=== PATIENT | female | born 1960 | race Caucasian/White ===

== ENCOUNTER 2018-05-06 07:57 | Inpatient (IN) | payer MEDICARE, MEDICAID, SELFPAY ==
[2018-05-06] VITALS (76 sets, daily range): BP systolic 151–259; BP diastolic 73–138; PULSE 56–87; RESP 16–30; TEMP 37.2–38.2; O2SAT 89–99
--- NOTE | 2018-05-06 08:07 | DI.COMBO_ITS ---
SYMPTOM/DIAGNOSIS: MENTAL STATUS CHANGES NONCONTRAST HEAD CT: No priors. Age appropriate changes are seen within the brain. No evidence of an acute infarct, hemorrhage, midline shift or mass effect is identified. The ventricles are intact. The basilar cisterns are patent. The visualized paranasal sinuses are clear. The mastoid air cells are well pneumatized. The calvarium is intact. Coronary artery calcifications are seen. IMPRESSION: No acute intracranial process. FRONTAL AND LATERAL CHEST: No priors. The left hemidiaphragm is not ideally visualized. There does appear to be a small left pleural effusion. A left basilar infiltrate is also suspected. This may represent atelectasis or pneumonia. The lungs are otherwise clear. The heart is at the upper limits of normal in size. Pulmonary vasculature is within normal limits. No pneumothorax is seen. Degenerative changes are present in the spine. IMPRESSION: Small left pleural effusion. Question of a left basilar infiltrate which may represent atelectasis or pneumonia.
--- NOTE | 2018-05-06 08:10 | W.ED.GENAD ---
Discharge Plan Discharge Details Chief Complaint: GenMedical Reason For Visit: CALEX Primary Care Provider: Mariana Arias ED Provider: Alexys Valdivia Home Meds and New Rx's Prescriptions: No Action multivitamin Tablet 1 tab PO DAILY RF: 0 carvedilol 25 mg Tablet 25 mg PO BID RF: 0 acetaminophen 325 mg Tablet 650 mg PO .Q4HRS PRNRF: 0 citalopram 40 mg Tablet 40 mg PO DAILY RF: 0 polyethylene glycol 3350 [Miralax] 17 gram Powder In Packet 17 g PO DAILY PRNRF: 0 lisinopril 20 mg Tablet 20 mg PO DAILY RF: 0 ondansetron HCl [Zofran] 4 mg Tablet 4 mg PO .Q6HRS PRNRF: 0 isosorbide mononitrate 30 mg Tablet Extended Release 24 Hr 30 mg PO DAILY RF: 0 torsemide 10 mg Tablet 10 mg PO DAILY RF: 0 potassium chloride [Klor-Con 10] 10 mEq Tablet Extended Release 20 mg PO DAILY RF: 0 risperidone 2 mg Tablet 2 mg PO DAILY RF: 0 ascorbic acid (vitamin C) [Vitamin C] 500 mg Tablet 500 mg PO DAILY RF: 0 amlodipine 10 mg Tablet 10 mg PO DAILY RF: 0 simvastatin 20 mg Tablet 20 mg PO .QHS RF: 0 ferrous sulfate [Iron (ferrous sulfate)] 325 mg (65 mg iron) Tablet 325 mg PO BID RF: 0 docusate sodium [Colace] 100 mg Capsule 100 mg PO BID RF: 0 omeprazole 20 mg Capsule,Delayed Release(Dr/Ec) 20 mg PO DAILY RF: 0 aspirin 81 mg Tablet,Chewable 81 mg PO DAILY RF: 0 vitamin B complex Tablet 1 tab PO DAILY RF: 0 hydralazine 50 mg Tablet 50 mg PO TID RF: 0 lorazepam 1 mg Tablet 1 mg PO PRNRF: 0 albuterol sulfate [Ventolin HFA] 90 mcg/actuation Hfa Aerosol Inhaler 2 puff Inhalation .Q4 HOURS PRNRF: 0 ipratropium bromide 42 mcg (0.06 %) [place],Non-Aerosol 1 spray Intranasal .Q8HRS PRNRF: 0 lithium carbonate 300 mg Tablet 300 mg PO DAILY RF: 0 risperidone 0.5 mg Tablet 0.5 mg PO .Q8HRS PRNRF: 0 budesonide-formoterol [Symbicort] 160-4.5 mcg/actuation Hfa Aerosol Inhaler 1 puff Inhalation DAILY RF: 0 melatonin 5 mg Tablet 5 mg PO .QHS RF: 0 cariprazine 1.5 mg Capsule 1.5 mg PO DAILY RF: 0 carbamazepine (mood stabiliz) 200 mg Capsule, Er Multiphase 12 Hr 200 mg PO BID RF: 0 glucagon (human recombinant) [Glucagon Emergency Kit (human)] 1 mg Kit 1 mg IM .Q15 MINUTES PRNRF: 0 dextrose [Glucose Gel] 40 % Gel 1 dose PO PRNRF: 0 nitroglycerin 2 % Ointment 0.25 inch Transdermal PRNRF: 0 Medical Decision Making Medical Records Medical records reviewed: Yes I reviewed the patient's medical records. This is a 58-year-old female who [facility] with elevated blood pressures and question mental status changes. She does not have a fever, she has slightly elevated blood pressures. Her exam is notable for dry mucous membranes, slightly slurred speech, she appears somewhat sedated. She does not want to take sedative medications. She is on a hypertensive medication regimen that includes carvedilol, lisinopril, amlodipine, torsemide. Diagnosis is broad and includes metabolic, neurologic, infectious etiologies. She is referred for CT scan of the head, chest x-ray, laboratory analysis with urine. The chest x-ray reveals equivocal, small left pleural effusion. There is opacification of the left hemidiaphragm, reflecting atelectasis versus early lower lobe infiltrate. Remainder of patient's diagnostics are notable for hyponatremia with a sodium of 157. She is significantly elevated BNP at 26,000. Troponin is at negative range. Cr slightly higher than that of 1.8 noted at recent DC from [facility]. I obtained and reviewed discharge summary from [facility] for date range April 26 - May 04. She was noted to have chronic comorbidities including hypernatremia (last noted at 146 on May 04), COPD, atherosclerotic coronary vascular disease, chronic conjunctivitis. Labs also noted BNP 15,000. She will require admission for fever, pneumonia and hypernatremia. Will discuss antibiotic choice with admitting team. Discussed with patients Guardian, Tona Wright. Lab Data Lab results reviewed: Yes I reviewed the patient's lab results. ECG Data Attestation: I personally reviewed and interpreted this ECG (s) as follows: Prior ECG tracings: not available for review Interpretation: Normal sinus rhythm, the rate is 77, QRS is normal [place] interval, QRS slightly widened with interventricular conduction delay, question delta wave. Nonspecific ST segment changes with out ST segment elevation. There is slight negative T waves in the precordium HPI - General Adult General Mode of arrival: EMS. Date/Time Provider Initiated Documentation: 05/06/18 07:59. Limitations to Documentation: altered mental status. Information obtained by: patient, EMS and old records reviewed. History of Present Illness 58 year old F presents to the emergency department with the chief complaint of Elevated blood pressure and question mental status changes, described as moderate, Quality is described as other (Unable to describe), Patient started experiencing this day(s) HPI Narrative: This is a 58-year-old female who was recently placed local rehabilitation facility following left tibial plateau fracture. She has history of bipolar disorder, COPD with chronic hypoxia, history of refusing BiPAP, 2 L of oxygen as needed, as well as recent question of non-STEMI for which she has had an outpatient nuclear stress test ordered. Referred for high blood pressures over days time despite amlodipine, carvedilol, lisinopril. She also takes torsemide. She is not particularly contributory to the history; she states to me that she would like a drink.. Related Data Home Medications Medication Instructions Recorded Confirmed acetaminophen 650 mg PO .Q4HRS PRN 05/06/18 05/06/18 albuterol sulfate [Ventolin HFA] 2 puff INHALATION .Q4 HOURS PRN 05/06/18 05/06/18 amlodipine 10 mg PO DAILY 05/06/18 05/06/18 ascorbic acid (vitamin C) [Vitamin 500 mg PO DAILY 05/06/18 05/06/18 C] aspirin 81 mg PO DAILY 05/06/18 05/06/18 budesonide-formoterol [Symbicort] 1 puff INHALATION DAILY 05/06/18 05/06/18 carbamazepine (mood stabiliz) 200 mg PO BID 05/06/18 05/06/18 cariprazine 1.5 mg PO DAILY 05/06/18 05/06/18 carvedilol 25 mg PO BID 05/06/18 05/06/18 citalopram 40 mg PO DAILY 05/06/18 05/06/18 dextrose [Glucose Gel] 1 dose PO PRN 05/06/18 docusate sodium [Colace] 100 mg PO BID 05/06/18 05/06/18 ferrous sulfate [Iron (ferrous 325 mg PO BID 05/06/18 05/06/18 sulfate)] glucagon (human recombinant) 1 mg IM .Q15 MINUTES PRN 05/06/18 05/06/18 [Glucagon Emergency Kit (human)] hydralazine 50 mg PO TID 05/06/18 05/06/18 ipratropium bromide 1 spray INTRANASAL .Q8HRS PRN 05/06/18 05/06/18 isosorbide mononitrate 30 mg PO DAILY 05/06/18 05/06/18 lisinopril 20 mg PO DAILY 05/06/18 05/06/18 lithium carbonate 300 mg PO DAILY 05/06/18 05/06/18 lorazepam 1 mg PO PRN 05/06/18 melatonin 5 mg PO .QHS 05/06/18 05/06/18 multivitamin 1 tab PO DAILY 05/06/18 05/06/18 nitroglycerin 0.25 inch TRANSDERMAL PRN 05/06/18 omeprazole 20 mg PO DAILY 05/06/18 05/06/18 ondansetron HCl [Zofran] 4 mg PO .Q6HRS PRN 05/06/18 05/06/18 polyethylene glycol 3350 [Miralax] 17 g PO DAILY PRN 05/06/18 05/06/18 potassium chloride [Klor-Con 10] 20 mg PO DAILY 05/06/18 05/06/18 risperidone 0.5 mg PO .Q8HRS PRN 05/06/18 05/06/18 risperidone 2 mg PO DAILY 05/06/18 05/06/18 simvastatin 20 mg PO .QHS 05/06/18 05/06/18 torsemide 10 mg PO DAILY 05/06/18 05/06/18 vitamin B complex 1 tab PO DAILY 05/06/18 05/06/18 Allergies Allergy/AdvReac Type Severity Reaction Status Date / Time pollen extracts Allergy Unknown Unverified 05/06/18 09:12 Sulfa (Sulfonamide Allergy Unknown Unverified 05/06/18 09:12 Antibiotics) sulfamethoxazole Allergy Unknown Unverified 05/06/18 09:41 [From Bactrim] trimethoprim [From Bactrim] Allergy Unknown Unverified 05/06/18 09:41 General Stated Complaint: GenMedical ADAM: 2 Review of Systems Review of Systems Unobtainable due to mental status Exam Narrative Exam Narrative: GEN: awake, alert, responds to simple commands, asking to have a drink. Moves all 4 extremities. Mucous membranes appear generally dry. Patient's somewhat unkempt HEAD: Normocephalic, atraumatic ENT: Mucous membranes dry, oropharynx partially edentulous, no acute asymmetry/swelling/exudates.External ear exam unremarkable EYES: PERRL, EOMI, bilateral conjunctival injection with crusting of the eyelids NECK: Full ROM, no SIOBHAN, no menigismus CHEST/RESP: Nontender, clear to auscultation bilateral, no wheeze/rhonchi/rales CARDIOVASCULAR: RRR, 2 out of 6 systolic ejection murmur left upper sternal border, rub hayden. 2+ Rad pulse bilateral ABDOMEN: Soft, nontender, no mass. +Bowel sounds EXT: Full ROM, no edema, no rash Neuro: Grossly normal neurologic exam, conversant, interactive. Her speech is slightly slurred & slow Psych: Speech slightly slurred, otherwise fluent, affect flat Course Vital Signs Temperature 37.4 C 05/06/18 08:00 Pulse 77 05/06/18 08:00 Respiratory Rate 27 H 05/06/18 08:00 Blood Pressure 204/91 H 05/06/18 08:00 Pulse Oximetry 92 L 05/06/18 08:00 Temperature 37.4 C 05/06/18 08:00 Pulse 77 05/06/18 08:00 Respiratory Rate 27 H 05/06/18 08:00 Blood Pressure 204/91 H 05/06/18 08:00 Pulse Oximetry 92 L 05/06/18 08:00
--- NOTE | 2018-05-06 08:17 | ED.GENADUL_ITS ---
Discharge Plan Discharge Details Chief Complaint: GenMedical Reason For Visit: CALEX Primary Care Provider: Mariana Arias ED Provider: Alexys Valdivia Home Meds and New Rx's Prescriptions: No Action multivitamin Tablet 1 tab PO DAILY RF: 0 carvedilol 25 mg Tablet 25 mg PO BID RF: 0 acetaminophen 325 mg Tablet 650 mg PO .Q4HRS PRNRF: 0 citalopram 40 mg Tablet 40 mg PO DAILY RF: 0 polyethylene glycol 3350 [Miralax] 17 gram Powder In Packet 17 g PO DAILY PRNRF: 0 lisinopril 20 mg Tablet 20 mg PO DAILY RF: 0 ondansetron HCl [Zofran] 4 mg Tablet 4 mg PO .Q6HRS PRNRF: 0 isosorbide mononitrate 30 mg Tablet Extended Release 24 Hr 30 mg PO DAILY RF: 0 torsemide 10 mg Tablet 10 mg PO DAILY RF: 0 potassium chloride [Klor-Con 10] 10 mEq Tablet Extended Release 20 mg PO DAILY RF: 0 risperidone 2 mg Tablet 2 mg PO DAILY RF: 0 ascorbic acid (vitamin C) [Vitamin C] 500 mg Tablet 500 mg PO DAILY RF: 0 amlodipine 10 mg Tablet 10 mg PO DAILY RF: 0 simvastatin 20 mg Tablet 20 mg PO .QHS RF: 0 ferrous sulfate [Iron (ferrous sulfate)] 325 mg (65 mg iron) Tablet 325 mg PO BID RF: 0 docusate sodium [Colace] 100 mg Capsule 100 mg PO BID RF: 0 omeprazole 20 mg Capsule,Delayed Release(Dr/Ec) 20 mg PO DAILY RF: 0 aspirin 81 mg Tablet,Chewable 81 mg PO DAILY RF: 0 vitamin B complex Tablet 1 tab PO DAILY RF: 0 hydralazine 50 mg Tablet 50 mg PO TID RF: 0 lorazepam 1 mg Tablet 1 mg PO PRNRF: 0 albuterol sulfate [Ventolin HFA] 90 mcg/actuation Hfa Aerosol Inhaler 2 puff Inhalation .Q4 HOURS PRNRF: 0 ipratropium bromide 42 mcg (0.06 %) [place],Non-Aerosol 1 spray Intranasal .Q8HRS PRNRF: 0 lithium carbonate 300 mg Tablet 300 mg PO DAILY RF: 0 risperidone 0.5 mg Tablet 0.5 mg PO .Q8HRS PRNRF: 0 budesonide-formoterol [Symbicort] 160-4.5 mcg/actuation Hfa Aerosol Inhaler 1 puff Inhalation DAILY RF: 0 melatonin 5 mg Tablet 5 mg PO .QHS RF: 0 cariprazine 1.5 mg Capsule 1.5 mg PO DAILY RF: 0 carbamazepine (mood stabiliz) 200 mg Capsule, Er Multiphase 12 Hr 200 mg PO BID RF: 0 glucagon (human recombinant) [Glucagon Emergency Kit (human)] 1 mg Kit 1 mg IM .Q15 MINUTES PRNRF: 0 dextrose [Glucose Gel] 40 % Gel 1 dose PO PRNRF: 0 nitroglycerin 2 % Ointment 0.25 inch Transdermal PRNRF: 0 Medical Decision Making Medical Records Medical records reviewed: Yes I reviewed the patient's medical records. This is a 58-year-old female who presents from local [facility] with elevated blood pressures and question mental status changes. She does not have a fever, she has slightly elevated blood pressures. Her exam is notable for dry mucous membranes, slightly slurred speech, she appears somewhat sedated. She does not want to take sedative medications. She is on a hypertensive medication regimen that includes carvedilol, lisinopril, amlodipine, torsemide. Diagnosis is broad and includes metabolic, neurologic, infectious etiologies. She is referred for CT scan of the head, chest x-ray, laboratory analysis with urine. The chest x-ray reveals equivocal, small left pleural effusion. There is opacification of the left hemidiaphragm, reflecting atelectasis versus early lower lobe infiltrate. Remainder of patient's diagnostics are notable for hyponatremia with a sodium of 157. She is significantly elevated BNP at 26,000. Troponin is at negative range. Cr slightly higher than that of 1.8 noted at recent DC from [facility]. I obtained and reviewed discharge summary from [facility] for date range April 26 - May 04. She was noted to have chronic comorbidities including hypernatremia (last noted at 146 on May 04), COPD, atherosclerotic coronary vascular disease, chronic conjunctivitis. Labs also noted BNP 15,000. She will require admission for fever, pneumonia and hypernatremia. Will discuss antibiotic choice with admitting team. Discussed with patients Guardian, Tona Wright. Lab Data Lab results reviewed: Yes I reviewed the patient's lab results. ECG Data Attestation: I personally reviewed and interpreted this ECG (s) as follows: Prior ECG tracings: not available for review Interpretation: Normal sinus rhythm, the rate is 77, QRS is normal [place] interval, QRS slightly widened with interventricular conduction delay, question delta wave. Nonspecific ST segment changes with out ST segment elevation. There is slight negative T waves in the precordium HPI - General Adult General Mode of arrival: EMS . Date/Time Provider Initiated Documentation: 05/06/18 07:59 . Limitations to Documentation: altered mental status . Information obtained by: patient, EMS and old records reviewed . History of Present Illness 58 year old F presents to the emergency department with the chief complaint of Elevated blood pressure and question mental status changes, described as moderate, Quality is described as other (Unable to describe), Patient started experiencing this day(s) HPI Narrative: This is a 58-year-old female who was recently placed local rehabilitation facility following left tibial plateau fracture. She has history of bipolar disorder, COPD with chronic hypoxia, history of refusing BiPAP, 2 L of oxygen as needed, as well as recent question of non-STEMI for which she has had an outpatient nuclear stress test ordered. Referred for high blood pressures over days time despite amlodipine, carvedilol , lisinopril. She also takes torsemide. She is not particularly contributory to the history; she states to me that she would like a drink.. Related Data Home Medications Medication Instructions Recorded Confirmed acetaminophen 650 mg PO .Q4HRS PRN 05/06/18 05/06/18 albuterol sulfate [Ventolin HFA] 2 puff INHALATION .Q4 HOURS PRN 05/06/18 amlodipine 10 mg PO DAILY 05/06/18 05/06/18 ascorbic acid (vitamin C) [Vitamin 500 mg PO DAILY 05/06/18 05/06/18 C] aspirin 81 mg PO DAILY 05/06/18 05/06/18 budesonide-formoterol [Symbicort] 1 puff INHALATION DAILY 05/06/18 05/06/18 carbamazepine (mood stabiliz) 200 mg PO BID 05/06/18 05/06/18 cariprazine 1.5 mg PO DAILY 05/06/18 05/06/18 carvedilol 25 mg PO BID 05/06/18 05/06/18 citalopram 40 mg PO DAILY 05/06/18 05/06/18 dextrose [Glucose Gel] 1 dose PO PRN 05/06/18 docusate sodium [Colace] 100 mg PO BID 05/06/18 05/06/18 ferrous sulfate [Iron (ferrous 325 mg PO BID 05/06/18 05/06/18 sulfate)] glucagon (human recombinant) 1 mg IM .Q15 MINUTES PRN 05/06/18 05/06/18 [Glucagon Emergency Kit (human)] hydralazine 50 mg PO TID 05/06/18 05/06/18 ipratropium bromide 1 spray INTRANASAL .Q8HRS PRN 05/06/18 05/06/18 isosorbide mononitrate 30 mg PO DAILY 05/06/18 05/06/18 lisinopril 20 mg PO DAILY 05/06/18 05/06/18 lithium carbonate 300 mg PO DAILY 05/06/18 05/06/18 lorazepam 1 mg PO PRN 05/06/18 melatonin 5 mg PO .QHS 05/06/18 05/06/18 multivitamin 1 tab PO DAILY 05/06/18 05/06/18 nitroglycerin 0.25 inch TRANSDERMAL PRN 05/06/18 omeprazole 20 mg PO DAILY 05/06/18 05/06/18 ondansetron HCl [Zofran] 4 mg PO .Q6HRS PRN 05/06/18 05/06/18 polyethylene glycol 3350 [Miralax] 17 g PO DAILY PRN 05/06/18 05/06/18 potassium chloride [Klor-Con 10] 20 mg PO DAILY 05/06/18 05/06/18 risperidone 0.5 mg PO .Q8HRS PRN 05/06/18 05/06/18 risperidone 2 mg PO DAILY 05/06/18 05/06/18 simvastatin 20 mg PO .QHS 05/06/18 05/06/18 torsemide 10 mg PO DAILY 05/06/18 05/06/18 vitamin B complex 1 tab PO DAILY 05/06/18 05/06/18 Allergies Allergy/AdvReac Type Severity Reaction Status Date / Time pollen extracts Allergy Unknown Unverified 05/06/18 09:12 Sulfa (Sulfonamide Allergy Unknown Unverified 05/06/18 09:12 Antibiotics) sulfamethoxazole Allergy Unknown Unverified 05/06/18 09:41 [From Bactrim] trimethoprim [From Bactrim] Allergy Unknown Unverified 05/06/18 09:41 General Stated Complaint: GenMedical ADAM: 2 Review of Systems Review of Systems Unobtainable due to mental status Exam Narrative Exam Narrative: GEN: awake, alert, responds to simple commands, asking to have a drink. Moves all 4 extremities. Mucous membranes appear generally dry. Patient's somewhat unkempt HEAD: Normocephalic, atraumatic ENT: Mucous membranes dry, oropharynx partially edentulous, no acute asymmetry/ swelling/exudates.External ear exam unremarkable EYES: PERRL, EOMI, bilateral conjunctival injection with crusting of the eyelids NECK: Full ROM, no SIOBHAN, no menigismus CHEST/RESP: Nontender, clear to auscultation bilateral, no wheeze/rhonchi/rales CARDIOVASCULAR: RRR, 2 out of 6 systolic ejection murmur left upper sternal border, rub hayden. 2+ Rad pulse bilateral ABDOMEN: Soft, nontender, no mass. +Bowel sounds EXT: Full ROM, no edema, no rash Neuro: Grossly normal neurologic exam, conversant, interactive. Her speech is slightly slurred & slow Psych: Speech slightly slurred, otherwise fluent, affect flat Course Vital Signs Temperature 37.4 C 05/06/18 08:00 Pulse 77 05/06/18 08:00 Respiratory Rate 27 H 05/06/18 08:00 Blood Pressure 204/91 H 05/06/18 08:00 Pulse Oximetry 92 L 05/06/18 08:00 Temperature 37.4 C 05/06/18 08:00 Pulse 77 05/06/18 08:00 Respiratory Rate 27 H 05/06/18 08:00 Blood Pressure 204/91 H 05/06/18 08:00 Pulse Oximetry 92 L 05/06/18 08:00
--- NOTE | 2018-05-06 08:33 | DI.VRAD_ITS ---
EXAM: CT Head Without Intravenous Contrast EXAM DATE/TIME: 05/06/2018 8:16 AM. CLINICAL HISTORY: 58 years old, female; Signs and symptoms; Other: Mental status changes TECHNIQUE: Axial computed tomography images of the head/brain without intravenous contrast. Coronal and sagittal reformatted images were created and reviewed. COMPARISON: No relevant prior studies available. FINDINGS: Brain: Age- related chronic microvascular changes are noted within the white matter. No hemorrhage. Ventricles: The ventricles and sulci are prominent compatible with age-appropriate atrophy. Bones/joints: Unremarkable. No acute fracture. Soft tissues: Unremarkable. Sinuses: Unremarkable as visualized. No acute sinusitis. Mastoid air cells: Unremarkable as visualized. No mastoid effusion. IMPRESSION: Age-appropriate atrophy and chronic microvascular change. Dictated and Authenticated by: Ariel Coburn MD. Ordering:ISMAEL HECTOR MD
--- NOTE | 2018-05-06 08:34 | DI.VRAD_ITS ---
EXAM: XR Chest, 2 Views EXAM DATE/TIME: 05/06/2018 8:23 AM. CLINICAL HISTORY: 58 years old, female; Signs and symptoms; Other: Mental status changes; Additional info: Limited ability to follow breathing instructions TECHNIQUE: Frontal and lateral views of the chest. COMPARISON: No relevant prior studies available. FINDINGS: Lungs: Opacification of the left hemidiaphragm may reflect atelectasis or left lower lobe pneumonia. Pleural space: Equivocal small left pleural effusion. No pneumothorax. Heart: Unremarkable. No cardiomegaly. Mediastinum: Unremarkable. Bones/joints: Unremarkable. IMPRESSION: 1. Opacification of the left hemidiaphragm may reflect atelectasis or left lower lobe pneumonia. 2. Equivocal small left pleural effusion. Dictated and Authenticated by: Ariel Coburn MD. Ordering:ISMAEL HECTOR MD
[2018-05-06] MEDS: Normal Saline 1,000 ML 125 ML IV (09:20)
[2018-05-06 09:21] LABS: Bilirubin Negative (Negative); Blood Trace-intact (Negative); Clarity Clear; Glucose Negative (Negative); Ketones Negative (Negative); Leukocyte Esterase Negative (Negative); Nitrite Negative (Negative); Specific Gravity 1.015 (1.005-1.025); Urobilinogen 0.2 EU/dL (Up TO 0.2); pH 7.5 (5-8)
[2018-05-06 09:29] LABS: *AMPHETAMINES SCREEN URINE Negative (Negative); *BARBITURATES SCREEN URINE Negative (Negative); *BENZODIAZEPINES SCREEN URINE Negative (Negative); Cannabinoids THC Negative (Negative); Cocaine Screen,Urine Negative (Negative); METHADONE URINE SCREEN Negative (Negative); OPIATES URINE SCREEN Negative (Negative); Tricyclic Antidepressants Negative (Negative)
[2018-05-06 09:30] LABS: Abs Immature Grans 0.02 k/cumm (0.0-0.09); Absolute Basophil Count 0.01 k/cumm (0.0-0.2); Absolute Eosinophil Count 0.07 k/cumm (0.0-0.7); Absolute Lymphocyte Count 0.75 k/cumm (1.2-3.4); Absolute Monocyte Count 0.35 k/cumm (0.11-0.7); Basophils % 0.2; Eosinophils % 1.3; HCT 31.5 % (36.0-46.0); HGB 9.4 g/dL (12.0-15.5); Immature Grans % 0.4; Lymphocytes % 13.4; Mean Corp. HGB Concentration 29.8 g/dL (32.0-36.0); Mean Corpuscular Hemoglobin 32.1 pg (27.0-33.0); Mean Corpuscular Volume 107.5 fL (80-95); Mean Platelet Volume 10.2 fL (8.0-11.0); Monocytes % 6.3; Neutrophils % 78.4; Platelet Count 118 x1000/uL (130-400); RBC 2.93 m/cumm (4.00-5.20); RBC Distribution Width 13.6 % (11.7-14.6)
[2018-05-06 09:32] LABS: Bacteria Rare HPF (Negative); C & S Indicated? No; Casts Negative LPF (Negative); Crystals Negative HPF (Negative); Epithelial Cells Rare HPF (Negative); Mucus Negative (Negative); Other Cells Rare Renal (Negative); RBC 0-2 (0-2); WBC 0-2 HPF (0-5)
[2018-05-06 09:37] LABS: Diff Comment RBC Morph Reviewed; Hypochromasia 1+; Macrocytosis 2+
[2018-05-06 09:52] LABS: NT-proBNP 26721 pg/mL
[2018-05-06 09:55] LABS: ALT 15 U/L (12-78); AST 12 U/L (15-37); Albumin 3.3 g/dL (3.4-5.0); Alkaline Phosphatase 123 U/L (46-116); Anion Gap 5.9 mmol/L (3-11); BUN 21 mg/dL (7-18); Bilirubin, Direct 0.12 mg/dL (0.00-0.20); Bilirubin, Total 0.4 mg/dL (0.2-1.0); CO2 36.1 mmol/L (21.0-32.0); CREATININE 2.01 mg/dL (0.55-1.02); Calcium 8.9 mg/dL (8.5-10.1); Chloride 115 mmol/L (98-107); Estimated GFR 25.63 (mL/min/1.73m2); Glucose 146 mg/dL (70-100); Magnesium 2.3 mg/dL (1.8-2.4); Potassium 3.2 mmol/L (3.5-5.1); TSH 1.07 uIU/mL (0.358-3.74); Total Protein 5.8 g/dL (6.4-8.2); Troponin I 0.06 ng/mL (0.00-0.06)
[2018-05-06 10:09] LABS: ETHANOL BLOOD < 3.0 mg/dL (<3); Sodium 157 mmol/L (136-145)
[2018-05-06] MEDS: PIPERACILLIN/TAZO 3.375 GM in Normal Saline 50 ML IVPB (11:23)
[2018-05-06] MEDS: amLODIPine 10 MG TAB PO (13:05)
[2018-05-06] MEDS: hydrALAZINE 25 MG TAB 50 MG PO ×2 (13:05→19:41)
[2018-05-06] MEDS: Carvedilol 25 MG TAB PO ×2 (13:05→19:41)
[2018-05-06] MEDS: POTASSIUM CHLORIDE/0.45% NACL 1,000 ML 100 MEQ IV (13:06)
--- NOTE | 2018-05-06 13:39 | W.PM.HP.N ---
Date of service: 05/06/18 Time of Service: 13:40 Assessment and Plan (1) Healthcare-associated pneumonia: Current visit: Yes Status: Acute Recent hospitalization at [facility] 04/26 through 05/04/2018. Now with fever and hypertension. Mild hypoxia. X-ray shows minimal left lower lobe infiltrate. Empiric coverage with Zosyn 3.375 g IV every 6 hours with plans to broaden coverage if she continues to deteriorate. Would include vancomycin and Levaquin added to her regimen if needed. (2) Tibial plateau fracture, left: Current visit: Yes Status: Acute Continue knee immobilizer. Nonweightbearing left leg. Physical therapy consult for mobility issues. (3) Chronic renal insufficiency: Current visit: Yes Status: Acute Creatinine elevated at 2.01. Thus far urine output appears to be adequate. Fox catheter to monitor urine output. (4) Hypokalemia: Current visit: Yes Status: Acute We will add potassium replacement to her IV. Recheck levels in the a.m. (5) Hypernatremia: Current visit: Yes Status: Acute Sodium elevated at 157. Will give additional free water and half normal saline at 100 cc an hour. Recheck level in the a.m. (6) Mental retardation: Current visit: Yes Status: Chronic Severe cognitive delay. Patient cannot participate in her care at all. Above plans have been run by the guardian who has been apprised and agrees. (7) Bipolar 1 disorder, depressed, severe: Current visit: Yes Status: Chronic Continue present meds. No behavioral issues at this point. Guardian warrants that she has gotten catatonic when stressed in the past. (8) Diabetes type 2, controlled: Current visit: Yes Status: Chronic Follow fingerstick blood sugars and correction aspart moderate. (9) Discharge planning issues: Current visit: Yes Status: Acute Patient is a full code. Admitted to the ICU in acute care status. She will likely be her several days getting her electrolytes in order, treating the pneumonia, managing her blood pressure, dealing with her overall disabilities and rehab from her tibial plateau fracture. Total time arranging her inpatient admission to the ICU 88 minutes. History of Present Illness Chief Complaint: Left lower lobe pneumonia, healthcare associated/hypernatremia/hypertension Narrative: This is a 58-year-old woman severely debilitated by developmental delay. She has [id number] caregivers. She was recently hospitalized at [facility] 04/26 through 05/04/2018 for a left tibial plateau fracture. She was transferred to [facility] and rehab for continued rehabilitation. She was transferred to [facility] overnight because of fever and severe hypertension. She also appeared to have mental status change though her baseline functioning is not very good. In the emergency room she was found to have a sodium of 157 potassium 3.2 chest x-ray showed a left lower lobe infiltrate, blood pressure 217/108. She is admitted to the intensive care unit for management of multiorgan dysfunction, electrolyte dysfunction, healthcare associated pneumonia. Her guardian was notified of her severe illness. Review of Systems Review of Systems Unobtainable due to mental condition [facility] Medical History Tibial plateau fracture, left (Acute ~03/2018) Chronic renal insufficiency (Acute) Hypokalemia (Acute) Hypernatremia (Acute) Hemorrhoids (Resolved) Ischemic heart disease (Chronic) HTN (hypertension) (Chronic) MIGUEL ANGEL (obstructive sleep apnea) (Chronic) Mental retardation (Chronic) Anemia (Chronic) Obesity (Chronic) HLD (hyperlipidemia) (Chronic) Bipolar 1 disorder, depressed, severe (Chronic) Diabetes type 2, controlled (Chronic) Healthcare-associated pneumonia (Acute) Meds Home Medications Medication Instructions Recorded Confirmed Type acetaminophen 650 mg PO .Q4HRS PRN 05/06/18 05/06/18 History albuterol sulfate [Ventolin HFA] 2 puff INHALATION .Q4 HOURS PRN 05/06/18 05/06/18 History amlodipine 10 mg PO DAILY 05/06/18 05/06/18 History ascorbic acid (vitamin C) [Vitamin 500 mg PO DAILY 05/06/18 05/06/18 History C] aspirin 81 mg PO DAILY 05/06/18 05/06/18 History budesonide-formoterol [Symbicort] 1 puff INHALATION DAILY 05/06/18 05/06/18 History carbamazepine (mood stabiliz) 200 mg PO BID 05/06/18 05/06/18 History cariprazine 1.5 mg PO DAILY 05/06/18 05/06/18 History carvedilol 25 mg PO BID 05/06/18 05/06/18 History citalopram 40 mg PO DAILY 05/06/18 05/06/18 History dextrose [Glucose Gel] 1 dose PO PRN 05/06/18 History docusate sodium [Colace] 100 mg PO BID 05/06/18 05/06/18 History ferrous sulfate [Iron (ferrous 325 mg PO BID 05/06/18 05/06/18 History sulfate)] glucagon (human recombinant) 1 mg IM .Q15 MINUTES PRN 05/06/18 05/06/18 History [Glucagon Emergency Kit (human)] hydralazine 50 mg PO TID 05/06/18 05/06/18 History ipratropium bromide 1 spray INTRANASAL .Q8HRS PRN 05/06/18 05/06/18 History isosorbide mononitrate 30 mg PO DAILY 05/06/18 05/06/18 History lisinopril 20 mg PO DAILY 05/06/18 05/06/18 History lithium carbonate 300 mg PO DAILY 05/06/18 05/06/18 History lorazepam 1 mg PO PRN 05/06/18 History melatonin 5 mg PO .QHS 05/06/18 05/06/18 History multivitamin 1 tab PO DAILY 05/06/18 05/06/18 History nitroglycerin 0.25 inch TRANSDERMAL PRN 05/06/18 History omeprazole 20 mg PO DAILY 05/06/18 05/06/18 History ondansetron HCl [Zofran] 4 mg PO .Q6HRS PRN 05/06/18 05/06/18 History polyethylene glycol 3350 [Miralax] 17 g PO DAILY PRN 05/06/18 05/06/18 History potassium chloride [Klor-Con 10] 20 mg PO DAILY 05/06/18 05/06/18 History risperidone 0.5 mg PO .Q8HRS PRN 05/06/18 05/06/18 History risperidone 2 mg PO DAILY 05/06/18 05/06/18 History simvastatin 20 mg PO .QHS 05/06/18 05/06/18 History torsemide 10 mg PO DAILY 05/06/18 05/06/18 History vitamin B complex 1 tab PO DAILY 05/06/18 05/06/18 History Allergies Allergy/AdvReac Type Severity Reaction Status Date / Time pollen extracts Allergy Unknown Unverified 05/06/18 09:12 Sulfa (Sulfonamide Allergy Unknown Unverified 05/06/18 09:12 Antibiotics) sulfamethoxazole Allergy Unknown Unverified 05/06/18 09:41 [From Bactrim] trimethoprim [From Bactrim] Allergy Unknown Unverified 05/06/18 09:41 Exam Narrative Exam Narrative: Patient lying in bed moaning stating I want to go upstairs. Unable to answer any questions with any clarity. Const General: disheveled and ill appearing Nutritional Appearance: overweight Orientation: awake, not oriented to person, not oriented to place and not oriented to time Limitations: behavioral limitations Chest Chest: normal inspection of the chest Resp Effort & Inspection: normal respiratory effort Auscultation: clear to auscultation bilaterally Cardio Rate: regular rate Rhythm: regular rhythm Heart Sounds: no murmurs GI Inspection: normal to inspection Palpation: soft and nontender Back/Spine/Pelvis Back: no CVA tenderness Other: Stage II decubital ulcer approximately 1 x 2 cm shallow ulceration with about 3-4 cm of surrounding erythema. Skin General skin exam: no rashes or lesions noted Neuro General: not oriented x3 and no focal motor deficits Cognition: abnormal cognition Extrem Left lower extremity: abnormal to inspection (knee immobilizer in place) Other: Distal perfusion good on both right and left lower extremity. Results Labs : 05/06/18 09:21 05/06/18 09:21 Laboratory Results - last 24 hr 05/06/18 05/06/18 05/06/18 09:05 09:05 09:21 WBC RBC Hgb Hct MCV MCH MCHC RDW Plt Count MPV Immature Gran % Neutrophils % Lymphocytes % Monocytes % Eosinophils % Basophils % Absolute Neutrophils Absolute Lymphocytes Absolute Monocytes Absolute Eosinophils Absolute Basophils Differential Comment RBC Morphology Hypochromasia Macrocytosis Sodium 157 H* Potassium 3.2 L Chloride 115 H Carbon Dioxide 36.1 H Anion Gap 5.9 BUN 21 H Creatinine 2.01 H Estimated GFR/1.73 m2 25.63 Glucose 146 H Calcium 8.9 Magnesium 2.3 Total Bilirubin 0.4 Conjugated Bilirubin 0.12 AST 12 L ALT 15 Alkaline Phosphatase 123 H Troponin I 0.06 NT-Pro-B Natriuret Pep Total Protein 5.8 L Albumin 3.3 L TSH 1.07 Urine Color Yellow Urine Clarity Clear Urine pH 7.5 Ur Specific Greene 1.015 Urine Protein 100 H Urine Ketones Negative Urine Blood Trace-intact H Urine Nitrite Negative Urine Bilirubin Negative Urine Urobilinogen 0.2 Ur Leukocyte Esterase Negative Urine RBC 0-2 Urine WBC 0-2 Ur Epithelial Cells Rare Urine Crystals Negative Urine Bacteria Rare Urine Casts Negative Urine Mucus Negative Urine Other Rare renal Ur Culture Indicated? No Urine Glucose Negative Urine Opiates Screen Negative Urine Methadone Screen Negative Ur Barbiturates Screen Negative Ur Tricyclics Screen Negative Ur Amphetamines Screen Negative U Benzodiazepines Scrn Negative Urine Cocaine Screen Negative Ur THC Screen Negative Ethyl Alcohol < 3.0 05/06/18 05/06/18 09:21 09:21 WBC 5.60 RBC 2.93 L Hgb 9.4 L Hct 31.5 L MCV 107.5 H MCH 32.1 MCHC 29.8 L RDW 13.6 Plt Count 118 L MPV 10.2 Immature Gran % 0.4 Neutrophils % 78.4 Lymphocytes % 13.4 Monocytes % 6.3 Eosinophils % 1.3 Basophils % 0.2 Absolute Neutrophils 4.40 Absolute Lymphocytes 0.75 L Absolute Monocytes 0.35 Absolute Eosinophils 0.07 Absolute Basophils 0.01 Differential Comment Rbc morph reviewed RBC Morphology See below Hypochromasia 1+ Macrocytosis 2+ Sodium Potassium Chloride Carbon Dioxide Anion Gap BUN Creatinine Estimated GFR/1.73 m2 Glucose Calcium Magnesium Total Bilirubin Conjugated Bilirubin AST ALT Alkaline Phosphatase Troponin I NT-Pro-B Natriuret Pep 43827 H Total Protein Albumin TSH Urine Color Urine Clarity Urine pH Ur Specific Greene Urine Protein Urine Ketones Urine Blood Urine Nitrite Urine Bilirubin Urine Urobilinogen Ur Leukocyte Esterase Urine RBC Urine WBC Ur Epithelial Cells Urine Crystals Urine Bacteria Urine Casts Urine Mucus Urine Other Ur Culture Indicated? Urine Glucose Urine Opiates Screen Urine Methadone Screen Ur Barbiturates Screen Ur Tricyclics Screen Ur Amphetamines Screen U Benzodiazepines Scrn Urine Cocaine Screen Ur THC Screen Ethyl Alcohol
[2018-05-06] MEDS: Acetaminophen 325 MG TAB PO (13:55)
[2018-05-06] MEDS: Insulin Aspart 300 UNITS/3 ML PEN SC ×2 (13:57→17:01)
[2018-05-06] MEDS: Enoxaparin 30 MG/0.3 ML SYR SC (13:57)
[2018-05-06] MEDS: Ferrous Sulfate 325 MG TAB PO (19:40)
[2018-05-06] MEDS: Docusate Sodium 100 MG CAP PO (19:41)
[2018-05-06] MEDS: Simvastatin 20 MG TAB PO (21:07)
[2018-05-06] MEDS: Melatonin 3 MG TAB 6 MG PO (21:07)
[2018-05-07] VITALS (45 sets, daily range): BP systolic 131–217; BP diastolic 59–110; PULSE 53–76; RESP 16–30; TEMP 37.2–37.7; O2SAT 85–99
[2018-05-07] MEDS: POTASSIUM CHLORIDE/0.45% NACL 1,000 ML 100 MEQ IV ×3 (00:02→23:00)
[2018-05-07] MEDS: Omeprazole 20 MG CAPCR PO (06:38)
[2018-05-07 07:01] LABS: Abs Immature Grans 0.01 k/cumm (0.0-0.09); Absolute Basophil Count 0.02 k/cumm (0.0-0.2); Absolute Eosinophil Count 0.12 k/cumm (0.0-0.7); Absolute Lymphocyte Count 1.04 k/cumm (1.2-3.4); Absolute Monocyte Count 0.44 k/cumm (0.11-0.7); Absolute Neutrophil Count 5.17 k/cumm (1.2-6.7); Basophils % 0.3; Eosinophils % 1.8; HCT 31.3 % (36.0-46.0); HGB 9.1 g/dL (12.0-15.5); Immature Grans % 0.1; Lymphocytes % 15.3; Mean Corp. HGB Concentration 29.1 g/dL (32.0-36.0); Mean Corpuscular Hemoglobin 31.9 pg (27.0-33.0); Mean Corpuscular Volume 109.8 fL (80-95); Mean Platelet Volume 11.1 fL (8.0-11.0); Monocytes % 6.5; Platelet Count 138 x1000/uL (130-400); RBC 2.85 m/cumm (4.00-5.20); RBC Distribution Width 13.9 % (11.7-14.6)
[2018-05-07 07:17] LABS: ALT 16 U/L (12-78); AST 11 U/L (15-37); Albumin 3.2 g/dL (3.4-5.0); Alkaline Phosphatase 107 U/L (46-116); Anion Gap 4.5 mmol/L (3-11); BUN 21 mg/dL (7-18); Bilirubin, Total 0.2 mg/dL (0.2-1.0); CO2 36.5 mmol/L (21.0-32.0); CREATININE 2.19 mg/dL (0.55-1.02); Calcium 8.6 mg/dL (8.5-10.1); Chloride 114 mmol/L (98-107); Estimated GFR 23.21 (mL/min/1.73m2); Glucose 108 mg/dL (70-100); Potassium 4.2 mmol/L (3.5-5.1); Sodium 155 mmol/L (136-145); Total Protein 5.4 g/dL (6.4-8.2)
[2018-05-07] MEDS: Torsemide 20 MG TAB 10 MG PO (08:02)
[2018-05-07] MEDS: Acetaminophen 325 MG TAB PO ×2 (08:02→13:57)
[2018-05-07] MEDS: Citalopram 20 MG TAB 40 MG PO (08:03)
[2018-05-07] MEDS: risperiDONE 1 MG TAB 2 MG PO (08:03)
[2018-05-07] MEDS: amLODIPine 10 MG TAB PO (08:04)
[2018-05-07] MEDS: Ferrous Sulfate 325 MG TAB PO ×2 (08:04→19:45)
[2018-05-07] MEDS: hydrALAZINE 25 MG TAB 50 MG PO ×3 (08:04→19:45)
[2018-05-07] MEDS: Carvedilol 25 MG TAB PO ×2 (08:04→19:45)
[2018-05-07] MEDS: Docusate Sodium 100 MG CAP PO ×2 (08:04→19:45)
[2018-05-07] MEDS: Potassium Chloride 10 MEQ TABCR 20 MEQ PO (08:04)
[2018-05-07] MEDS: Lithium Carbonate 300 MG CAP PO (08:04)
[2018-05-07] MEDS: Lisinopril 20 MG TAB PO (08:05)
[2018-05-07] MEDS: Isosorbide Mononitrate 30 MG TABCR PO (08:05)
[2018-05-07] MEDS: Aspirin 81 MG CHEW PO (08:05)
--- NOTE | 2018-05-07 08:45 | PDOC.CMIN ---
- If Service Date Differs Date of service: 05/07/18 Time of Service: 08:45 Care Management Initial Assess REASON FOR HOSPITALIZATION:: L lower lobe pneumonia, hypernatremia PAST MEDICAL HISTORY/PAST SURGICAL HISTORY:: HTN, DM 2, MIGUEL ANGEL, chronic renal disease, ischemic heart disease, anemia, obesity, bipolar 1 disorder, severe cognitive delay, she is unable to partcipate in her care. PREVIOUS FUNCTIONAL STATUS/SOCIAL/FAMILY SUPPORTS:: [facility] related to recent L tibia fracture. She was at [facility] prior to [facility]. She receives DS through [facility] in [place] Megha Servin is her top case assembler and her contact number is [phone]. Tona currently receives 10 hours a week. Her DS person is Deepthi and is present today at the bedside. Tona lives in an AF home with Randiellie Corcoran in [place]. Plan is for her to return there once she has completed short term rehab for PT and OT. CURRENT FUNCTIONAL STATUS:: Tona is sitting up in bed she is asking for a drink over and over. Her guardian Tona is at the bedside and her DS worker Deepthi is also present.Tona has excessive thirst at baseline she recently had surgery in January to remove the left kidney for chronic stones. She has a histroy of depression per Tona with ECT treatments in the past. Tona will often get upset she ask for a drink and she does not get it. She will state I am going to throw myself on the floor to her caregivers. She has lived in several [facility] homes in the past her most recent one has been for just over a year. NEHA did complete HIPAA form with Guardian and scanned to access. Guardian should be contacted with updates, concerns or questions her number is [phone] if she does not call back in 10 minutes and the need is emergant contact office of public guardian at . ADVANCE DIRECTIVES:: Full code Guardianship forms on the chart Has patient been provided with information about the portal?: No Did the patient sign up for the portal?: No CODE STATUS:: Full Code INSURANCE COVERAGE / FINANCIAL ISSUES:: Medicaid, and Medicare CURRENT HOME/COMMUNITY SERVICES/EQUIPMENT:: [facility], prior she lives at home with a [facility] care provider. Tona has a bipap and is on oxygen PRN. 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 She has a public guardian and receives DS services 10 hours a week. PRIMARY CARE PHYSICIAN:: Mariana Garibay POTENTIAL DISCHARGE NEEDS:: Return to [facility] for ongoing short rehab stay prior to returning home with [facility] care provider. Discharge informaton and follow up plan of care will be sent to [facility] and guardian updated. PATIENT/FAMILY EDUCATION NEEDS:: Discharge informaton and follow up plan of care will be sent to [facility] and guardian updated. Education to include discharge plan, limitaitons and follow up plan of care. ANTICIPATED BARRIERS TO DISCHARGE:: None identified. TRANSPORTATION:: [facility] when medically ready for discharge. PLAN:: Toan is admitted for treatment of pneumonia with recent hosptial stay at [facility]. She will return to [facility] when medically ready per provider. CM has updated the guardian and will fax updates to group director at [facility]. Anticipate she will be discharged over the weekend to return to facility. CM to continue to provide support to patient and care team ongoing discharge planning.
[2018-05-07] MEDS: Budesonide/Formoterol 160/4.5 6 GM 60 PUFF INH IH (08:59)
--- NOTE | 2018-05-07 09:15 | INITIAL_ITS ---
- If Service Date Differs Date of service: 05/07/18 Time of Service: 08:45 Care Management Initial Assess REASON FOR HOSPITALIZATION:: L lower lobe pneumonia, hypernatremia PAST MEDICAL HISTORY/PAST SURGICAL HISTORY:: HTN, DM 2, MIGUEL ANGEL, chronic renal disease, ischemic heart disease, anemia, obesity, bipolar 1 disorder, severe cognitive delay, she is unable to partcipate in her care. PREVIOUS FUNCTIONAL STATUS/SOCIAL/FAMILY SUPPORTS:: Tona is [facility] at [facility] for [facility]hab stay related to recent L tibia fracture. She was at [facility] prior to [facility] to [facility]. She receives DS through [facility] in [place] Megha Servin is her skilled nursing case manager and her contact number is [phone]. Tona currently receives 10 hours a week. Her DS person is Deepthi and is present today at the bedside. Tona lives in an AF home with Randiellie Corcoran in [place]. Plan is for her to return there once she has completed short term rehab for PT and OT. CURRENT FUNCTIONAL STATUS:: Tona is sitting up in bed she is asking for a drink over and over. Her guardian Tona is at the bedside and her DS worker Deepthi is also present.Tona has excessive thirst at baseline she recently had surgery in January to remove the left kidney for chronic stones. She has a histroy of depression per Tona with ECT treatments in the past. Tona will often get upset she ask for a drink and she does not get it. She will state I am going to throw myself on the floor to her caregivers. She has lived in several [facility] homes in the past her most recent one has been for just over a year. NEHA did complete HIPAA form with Guardian and scanned to access. Guardian should be contacted with updates, concerns or questions her number is [phone] if she does not call back in 10 minutes and the need is emergant contact office of public guardian at . ADVANCE DIRECTIVES:: Full code Guardianship forms on the chart Has patient been provided with information about the portal?: No Did the patient sign up for the portal?: No CODE STATUS:: Full Code INSURANCE COVERAGE / FINANCIAL ISSUES:: Medicaid, and Medicare CURRENT HOME/COMMUNITY SERVICES/EQUIPMENT:: [facility], prior she lives at home with a [facility] care provider. Tona has a bipap and is on oxygen PRN. 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 She has a public guardian and receives DS services 10 hours a week. PRIMARY CARE PHYSICIAN:: Mariana Garibay POTENTIAL DISCHARGE NEEDS:: Return to [facility] for ongoing short rehab stay prior to returning home with [facility] care provider. Discharge informaton and follow up plan of care will be sent to [facility] and guardian updated. PATIENT/FAMILY EDUCATION NEEDS:: Discharge informaton and follow up plan of care will be sent to [facility] and guardian updated. Education to include discharge plan, limitaitons and follow up plan of care. ANTICIPATED BARRIERS TO DISCHARGE:: None identified. TRANSPORTATION:: [facility] when medically ready for discharge. PLAN:: Tona is admitted for treatment of pneumonia with recent hosptial stay at [facility]. She will return to [facility] when medically ready per provider. CM has updated the guardian and will fax updates to integrated logistics programs director at [facility]. Anticipate she will be discharged over the weekend to return to facility. CM to continue to provide support to patient and care team ongoing discharge planning.
--- NOTE | 2018-05-07 10:19 | PT.INIE ---
Date of service: 05/07/18 Time of Service: 09:50 PT Notes Inpatient Physical Therapy Evaluation Date: 05/07/18 Referring Doctor: Taran San PT Orders: PT CONSULT: left tibial plateau x, NWB, for mobility issues Precautions: Fall Precautions, NWB L LE Patient Profile/Admitting Diagnosis: Pt is a 58yr old female admitted with pneumonia and hypernatremia, altered mental status PMHX: obesity, delay, Bipolar 1 Disorder, diabetes mellitus II, chronic renal insufficiency, ischemic heart disease, hypertension, obstructive sleep apnea, anemia, hyperlipidemina Social History/Home Situation: Lives in a home with 24 hr caregivers, ramp to enter no stairs. Baseline mobility independent with FWW, assist with ADLS. Caregiver present in room to provide home information. Equipment Owned/DME: FWW, raised toilet seat, commode, shower chair Subjective: Pt lying in bed, states name is Annette, does not engage in conversation other than to repeatedly ask for water. She is able to follow simple commands when directed such as moving legs and feet. Caregiver in room talking with patient and encouraging participation in therapy session. Caregiver states patient will do what she wants to do and is sometimes cooperative and other times will refuse mobility. Objective: General Observation: telemetry, R UE IV, BP/02 monitors, knee immobilizer L LE Mental Status: A& O to name Pain: no c/o pain Bed Mobility/Transfers: Supine-sit: HOB 35 degrees, modAx1 to get trunk to sitting and assist hips to edge of bed with use of bedpad. Pt able to sit unsupported at edge of bed for 5min. Pt repeatedly asking for water and asking to get back to bed. Sit-stand: Pt unable to stand, unable to maintain NWB L LE Sit-supine: HOB flat, MinAx1 for upper body and trunk to supine position positioning in bed required maxAx2, pt unable to assist Gait: unable. Due to developmental delay and deconditioning, pt unable to maintain NWB L LE for standing or transfer activities. Pt will require a Karly lift tranfer bed<>chair until she can begin weight bearing on L LE in 6-8weeks when fracture is healed. Balance: Static Sitting: normal Dynamic Sitting: normal Static Standing: unable Dynamic Standing: unable Special Tests: Mobility Limitations Standardized Measure [employer] AM-PAC 6 clicks Basic Mobility Inpatient Short Form: Raw Score: 8 Standardized Score: 28.58 CMS Score: 86.62% CMS Modifier: CM Informed Consent/Education: Patient instructed in purpose of PT consult and plan of care. Assessment: Pt is a 58yr old female admitted with pneumonia and hypernatremia, altered mental status in setting of obesity, delay, Bipolar 1 Disorder, diabetes mellitus II, chronic renal insufficiency. Patient presents with the following impairment level findings: decreased ability to follow direction due to developmental delay, decreased ability to understand and follow NWB precautions L LE due to developmental delay, requires assist of 2 persons for bed mobility, assist of 1 person min-modA for transfers to edge of bed and back to bed. Pt is dependent for transfers to chair due to inability to maintain NWB precautions, pt is at risk for falls and further damage to fracture. She will require Karly Lift transfers bed <> chair until she can begin weight bearing on L LE. Recommend return to rehab facility when medically cleared for 6-8 weeks to allow fracture to heal, then begin standing transfers and gait training at that time when weight bearing precautions lifted. Impairments are contributing to the following functional limitations: AMPAC score CMS Score: 86.62% Patient is assessed as a High 00139 complexity based on the following: History: see pmhx Examination: see above Presentation: evolving Decision Making: AMPAC score CMS Score: 86.62% Goals: not applicable Plan of Care/Treatment Plan: PT eval only DISCHARGE RECOMMENDATIONS: karly lift transfers bed<> chair until patient can return to [facility]. Begin standing transfers/gait training once patient can be weight bearing on L LE in 6-8weeks TREATMENT CODE/TIME: 25min IE 9:50 G Codes in the area mobility of walking and moving around: current status [id number] CM; projected status GP [id number]. Discharge status (if discharging) GP [id number] cm AMPAC score CMS Score: 86.62% Kisha Urbina PT.
--- NOTE | 2018-05-07 10:25 | IN_ITS ---
Date of service: 05/07/18 Time of Service: 09:50 PT Notes Inpatient Physical Therapy Evaluation Date: 05/07/18 Referring Doctor: Taran San PT Orders: PT CONSULT: left tibial plateau x, NWB, for mobility issues Precautions: Fall Precautions, NWB L LE Patient Profile/Admitting Diagnosis: Pt is a 58yr old female admitted with pneumonia and hypernatremia, altered mental status PMHX: obesity, delay, Bipolar 1 Disorder, diabetes mellitus II, chronic renal insufficiency, ischemic heart disease, hypertension, obstructive sleep apnea, anemia, hyperlipidemina Social History/Home Situation: Lives in a home with 24 hr caregivers, ramp to enter no stairs. Baseline mobility independent with FWW, assist with ADLS. Caregiver present in room to provide home information. Equipment Owned/DME: FWW, raised toilet seat, commode, shower chair Subjective: Pt lying in bed, states name is Annette, does not engage in conversation other than to repeatedly ask for water. She is able to follow simple commands when directed such as moving legs and feet. Caregiver in room talking with patient and encouraging participation in therapy session. Caregiver states patient will do what she wants to do and is sometimes cooperative and other times will refuse mobility. Objective: General Observation: telemetry, R UE IV, BP/02 monitors, knee immobilizer L LE Mental Status: A& O to name Pain: no c/o pain Bed Mobility/Transfers: Supine-sit: HOB 35 degrees, modAx1 to get trunk to sitting and assist hips to edge of bed with use of bedpad. Pt able to sit unsupported at edge of bed for 5min. Pt repeatedly asking for water and asking to get back to bed. Sit-stand: Pt unable to stand, unable to maintain NWB L LE Sit-supine: HOB flat, MinAx1 for upper body and trunk to supine position positioning in bed required maxAx2, pt unable to assist Gait: unable. Due to developmental delay and deconditioning, pt unable to maintain NWB L LE for standing or transfer activities. Pt will require a Karly lift tranfer bed<>chair until she can begin weight bearing on L LE in 6-8weeks when fracture is healed. Balance: Static Sitting: normal Dynamic Sitting: normal Static Standing: unable Dynamic Standing: unable Special Tests: Mobility Limitations Standardized Measure [employer] AM-PAC 6 clicks Basic Mobility Inpatient Short Form: Raw Score: 8 Standardized Score: 28.58 CMS Score: 86.62% CMS Modifier: CM Informed Consent/Education: Patient instructed in purpose of PT consult and plan of care. Assessment: Pt is a 58yr old female admitted with pneumonia and hypernatremia , altered mental status in setting of obesity, delay, Bipolar 1 Disorder, diabetes mellitus II, chronic renal insufficiency. Patient presents with the following impairment level findings: decreased ability to follow direction due to developmental delay, decreased ability to understand and follow NWB precautions L LE due to developmental delay, requires assist of 2 persons for bed mobility, assist of 1 person min-modA for transfers to edge of bed and back to bed. Pt is dependent for transfers to chair due to inability to maintain NWB precautions, pt is at risk for falls and further damage to fracture. She will require Karly Lift transfers bed <> chair until she can begin weight bearing on L LE. Recommend return to rehab facility when medically cleared for 6-8 weeks to allow fracture to heal, then begin standing transfers and gait training at that time when weight bearing precautions lifted. Impairments are contributing to the following functional limitations: AMPAC score CMS Score: 86.62% Patient is assessed as a High 99994 complexity based on the following: History: see pmhx Examination: see above Presentation: evolving Decision Making: AMPAC score CMS Score: 86.62% Goals: not applicable Plan of Care/Treatment Plan: PT eval only DISCHARGE RECOMMENDATIONS: karly lift transfers bed<> chair until patient can return to [facility]. Begin standing transfers/gait training once patient can be weight bearing on L LE in 6-8weeks TREATMENT CODE/TIME: 25min IE 9:50 G Codes in the area mobility of walking and moving around: current status [id number] CM; projected status GP [id number]. Discharge status (if discharging) GP [id number] cm AMPAC score CMS Score: 86.62% Kisha Urbina PT.
[2018-05-07 11:27] LABS: Lithium 0.35 mmol/L (0.60-1.20)
--- NOTE | 2018-05-07 11:45 | PHARADMIT ---
Addendum entered by Anni Johnson 05/13/18 10:45: Pharmacy Note Subjective nursing reports pt mood is decreased Objective hypernatremic, bp ok, FS 125, crcl down a bit Assessment D5W started to treat hypernatremia, new med started DDAVP SC, MD may change to PO or intranasal formulation once labs show if it is working. spirolonlactone, lisinopril on hold Plan Na, med changes Original Note: Addendum entered by Lashanda Hodges 05/11/18 13:20: Pharmacy Note Subjective speech consult this morning Objective BP-153/70 HR-55 other VS okay weight-120.4 kg(up) SCr-2.16(down) Assessment zosyn changed to augmentin (dosing okay Crcl ~34.7 mL/min using adjusted body weight) one time dexamethasone 4 mg dose ordered for this evening spironolactone restarted today, potassium discontinued pt. no longer on nicardipine drip, MD has not discontinued order yet though md stopped lithium due to possible diabetes insipidus Plan discharge back to SNF tomorrow if continues to do well Original Note: Addendum entered by Anni Johnson 05/10/18 11:14: Pharmacy Note Subjective HAP, returning to [facility] when ready Objective Na 150, K 3.3, bp 163/60 Assessment pip/taxo continues, lithium continues on hold Plan watch BP, other VS, labs and for med changes Original Note: Addendum entered by Lashanda Hodges 05/08/18 12:49: Pharmacy Note Subjective Objective BP-178/91 RR-28 other VS okay Na-149 K+3.8 Cl-111 SCr-2.07(down) h/h-8.7/29.3(down) plt-121 Assessment -carvedilol increased from 25 to 50 mg BID, hydralazine increased from 50 to 100 mg TID, and lisinopril increased from 20 to 40 mg daily -lithium put on hold -zosyn continues, mentioned deescalating abx to PO soon Plan watch BP, other VS, labs and for med changes Original Note: Admission Pharmacy Clinical Review Left lower lobe pneumonia, hypernatremia Code Status Full Code Current Weight 115.2 kg Renally Cleared and Narrow Therapeutic Index Meds Crcl ~33.2 mL/min using adjusted body weight; current meds okay pt. is on carbamazepine and lithium- lithium level 0.35 mmol/L QTc Value / Action Taken BP Control, Fever BP 163/80 afebrile Electrolytes reviewed Na 155 (down) Cl 114 DVT Prophylaxis enoxaparin- 2 orders, one currently on hold due to renal function Opiate Usage / Scheduled Bowel Regimen Ordered no/prn Plt/SCr for Heparin / Enoxaparin plt 138 SCr 2.19 INR for Warfarin n/a H/H stable, WBC/Bands h/h 9.1/31.3 wbc 680 Antibiotic appropriateness zosyn Cultures and Sensitivities blood culture and MRSA pending Surgical ABX d/c within 24 hr n/a DM control / Insulin Dosing BG 108 sliding scale aspart Heart Failure (Check EF%) (ELOISE's, B-Block, Diuretics) amlodipine, lisinopril, torsemide IV to PO Switch n/a Home Meds Reviewed -multiple QTc prolonging meds: citalopram, ondansetron, risperidone, albuterol, formotorol -anticholinergic meds (risperidone/ipratropium) may increase the ulcerogenic effect of potassium -carvedilol may diminish the bronchodilatory effects of formotorol and albuterol -carbamazepine may induce the metabolism of amlodipine, isosorbide mononitrate, ondansetron, risperidone, simvastatin -omeprazole may increase the serum concentration of citalopram (limit citalopram dose to 20 mg/day) -lisinopril may increase the serum concentration of lithium -lithium may enhance the serotonergic effect of citalopram increasing the risk of toxicity/serotonin syndrome -amlodipine can increase the serum concentration of simvastatin (limit simvastatin dose to 20 mg/day) Home Meds Not Ordered ascorbic acid, ipratropium (nasal), lorazepam, multivitamin, nitroglycerin, vitamin B complex Comments
--- NOTE | 2018-05-07 13:48 | DM INPTCON_ITS ---
DESCRIPTION/ASSESSMENT: Appreciate diabetes consult for Tona Queen who is hospitalized with pneumonia. BMI 49 No A1c available During this hospitalization blood sugars 119-166 with moderate insulin correction only. Unclear how much carbohydrate she is eating. H&P indicates she is cared for by caregivers with a mental disability. Therefore she is not visited today. INTERVENTION: BLood sugars are at target today without medication. No intervention suggested at this time. PLAN: will follow blood sugars.
[2018-05-07] MEDS: Enoxaparin 30 MG/0.3 ML SYR SC (13:56)
--- NOTE | 2018-05-07 15:43 | W.PM.PROGNOT ---
Date of service: 05/07/18 Time of Service: 15:43 Assessment and Plan (1) Healthcare-associated pneumonia: Current visit: Yes Status: Acute She is on the Zosyn. She has defervesced and white count is normal. Respiratory status appears to be stable satting well on 3 L and can probably be titrated down on her O2. Her lung exam sounds improved. The guardian suspects there may have been a choking episode. We have not witnessed any here. As a precaution will change her to honey thickened liquids. (2) Status post nephrectomy: Current visit: Yes Status: Acute The guardian informs us that she had a nephrectomy on the left on 02/02/2018 at [facility], Dr. Gandhi. She is really not been right since that time with increased weakness, frailty, mental status change. There have been adjustments to her lithium dose, worsening renal function, constant thirst. They are in the process of getting a nephrology follow-up to address some of these issues. The nephrectomy was for recurrent kidney stones and infections. (3) Tibial plateau fracture, left: Current visit: Yes Status: Acute Continues in a knee immobilizer. Nonweightbearing status. Pain appears well-controlled, (difficult to assess because of her constant crying out for various demands). Continue physical therapy for mobility issues. (4) Chronic renal insufficiency: Current visit: Yes Status: Acute Creatinine has bumped slightly to 2.19. She is taking adequate p.o. Rhododendron level is low at 0.35. We are allowing liberal fluids and have some IV fluids running. Trend her labs over time. (5) Hypokalemia: Current visit: Yes Status: Acute Potassium has been adequately replaced. (6) Hypernatremia: Current visit: Yes Status: Acute Sodium has come down slightly to 155 continue liberal po fluids and half-normal saline IV. Recheck labs in the a.m. (7) Bipolar 1 disorder, depressed, severe: Current visit: Yes Status: Chronic Moderate behavioral disturbance. She does not get angry. She has a very flat affect and very little insight. Continue present medications, no adjustments made. (8) Diabetes type 2, controlled: Current visit: Yes Status: Chronic Some question whether she is actually diabetic, blood sugars have been easily controlled on just correction aspart. (9) Discharge planning issues: Current visit: Yes Status: Acute She continues is a full code in acute care status, continues as ICU patient but will likely transition to [facility] by tomorrow if she continues stable. Her rehab is complicated by her developmental delay, nonweight bearing status, recent nephrectomy, obesity. Subjective Interval history since last seen: Patient remains largely incoherent. She repetitively cries out for water, pain, change in venue, etc. She is awake most of the time. She does not seem to be aware of her surroundings. Exam Narrative Exam Narrative: She is awake and alert. She does not respond differently to any caregivers or people she is familiar with that I can tell. Her breathing is not at all labored. There is no cough. She is taking liquids without much difficulty, I do not see any evidence of aspiration or difficulty swallowing. Const General: disheveled, frail appearing and ill appearing Nutritional Appearance: overweight Orientation: alert and confused Limitations: behavioral limitations HENMT Head: normal to inspection Chest Chest: normal inspection of the chest Resp Effort & Inspection: normal respiratory effort Auscultation: clear to auscultation bilaterally Cardio Rate: regular rate Rhythm: regular rhythm Heart Sounds: no murmurs GI Inspection: normal to inspection Palpation: soft and nontender Skin General skin exam: no rashes or lesions noted Neuro General: awake and not oriented x3 Objective Objective Clinical Data: Abnormal lab results 05/07/18 05/07/18 05/07/18 Range/Units 06:20 06:20 06:20 RBC 2.85 L (4.00-5.20) m/cumm Hgb 9.1 L (12.0-15.5) g/dL Hct 31.3 L (36.0-46.0) % MCV 109.8 H (80-95) fL MCHC 29.1 L (32.0-36.0) g/dL MPV 11.1 H (8.0-11.0) fL Absolute Lymphocytes 1.04 L (1.2-3.4) k/cumm Sodium 155 H (136-145) mmol/L Chloride 114 H (98-107) mmol/L Carbon Dioxide 36.5 H (21.0-32.0) mmol/L BUN 21 H (7-18) mg/dL Creatinine 2.19 H (0.55-1.02) mg/dL Glucose 108 H (70-100) mg/dL AST 11 L (15-37) U/L Total Protein 5.4 L (6.4-8.2) g/dL Albumin 3.2 L (3.4-5.0) g/dL Rhododendron 0.35 L (0.60-1.20) mmol/L Vital Signs Temp 37.7 C H 05/07/18 12:21 Pulse 70 05/07/18 13:01 Resp 19 05/07/18 13:01 BP 178/88 H 05/07/18 13:01 Pulse Ox 95 05/07/18 13:01 Intake & Output 05/06/18 05/07/18 05/07/18 23:59 11:59 23:59 Intake Total 3230 / 3230 2176 / 2176 973 / 973 Output Total 750 / 750 900 / 900 1250 / 1250 Balance 2480 / 2480 1276 / 1276 -277 / -277 Weight 114.9 kg 115.2 kg Intake: IV 2049 / 2049 1100 / 1100 50 / 50 Oral 1180 / 1180 1076 / 1076 923 / 923 Output: Urine 750 / 750 900 / 900 1250 / 1250 Other: Urine Color Pale Pale Pale Yellow Urine Appearance Clear Clear Clear Urine Odor Normal Comment Indwelling Braswell catheter. Indwelling Braswell catheter. braswell in place Stool Size Smear Stool Characteristics Soft Brown Voiding Methods Incontinent Laboratory Results WBC 6.80 k/cumm (4.4-10.8) 05/07/18 06:20 RBC 2.85 m/cumm (4.00-5.20) L 05/07/18 06:20 Hgb 9.1 g/dL (12.0-15.5) L 05/07/18 06:20 Hct 31.3 % (36.0-46.0) L 05/07/18 06:20 MCV 109.8 fL (80-95) H 05/07/18 06:20 MCH 31.9 pg (27.0-33.0) 05/07/18 06:20 MCHC 29.1 g/dL (32.0-36.0) L 05/07/18 06:20 RDW 13.9 % (11.7-14.6) 05/07/18 06:20 Plt Count 138 x1000/uL (130-400) 05/07/18 06:20 MPV 11.1 fL (8.0-11.0) H 05/07/18 06:20 Immature Gran % 0.1 05/07/18 06:20 Neutrophils % 76.0 05/07/18 06:20 Lymphocytes % 15.3 05/07/18 06:20 Monocytes % 6.5 05/07/18 06:20 Eosinophils % 1.8 05/07/18 06:20 Basophils % 0.3 05/07/18 06:20 Absolute Neutrophils 5.17 k/cumm (1.2-6.7) 05/07/18 06:20 Absolute Lymphocytes 1.04 k/cumm (1.2-3.4) L 05/07/18 06:20 Absolute Monocytes 0.44 k/cumm (0.11-0.7) 05/07/18 06:20 Absolute Eosinophils 0.12 k/cumm (0.0-0.7) 05/07/18 06:20 Absolute Basophils 0.02 k/cumm (0.0-0.2) 05/07/18 06:20 Differential Comment Rbc morph reviewed 05/06/18 09:21 RBC Morphology See below 05/06/18 09:21 Hypochromasia 1+ 05/06/18 09:21 Macrocytosis 2+ 05/06/18 09:21 Sodium 155 mmol/L (136-145) H 05/07/18 06:20 Potassium 4.2 mmol/L (3.5-5.1) D 05/07/18 06:20 Chloride 114 mmol/L (98-107) H 05/07/18 06:20 Carbon Dioxide 36.5 mmol/L (21.0-32.0) H 05/07/18 06:20 Anion Gap 4.5 mmol/L (3-11) 05/07/18 06:20 BUN 21 mg/dL (7-18) H 05/07/18 06:20 Creatinine 2.19 mg/dL (0.55-1.02) H 05/07/18 06:20 Estimated GFR/1.73 m2 23.21 (mL/min/1.73m2) 05/07/18 06:20 Glucose 108 mg/dL (70-100) H 05/07/18 06:20 Calcium 8.6 mg/dL (8.5-10.1) 05/07/18 06:20 Magnesium 2.3 mg/dL (1.8-2.4) 05/06/18 09:21 Total Bilirubin 0.2 mg/dL (0.2-1.0) 05/07/18 06:20 Conjugated Bilirubin 0.12 mg/dL (0.00-0.20) 05/06/18 09:21 AST 11 U/L (15-37) L 05/07/18 06:20 ALT 16 U/L (12-78) 05/07/18 06:20 Alkaline Phosphatase 107 U/L (46-116) 05/07/18 06:20 Troponin I 0.06 ng/mL (0.00-0.06) 05/06/18 09:21 NT-Pro-B Natriuret Pep 67486 pg/mL (-299) H 05/06/18 09:21 Total Protein 5.4 g/dL (6.4-8.2) L 05/07/18 06:20 Albumin 3.2 g/dL (3.4-5.0) L 05/07/18 06:20 TSH 1.07 uIU/mL (0.358-3.74) 05/06/18 09:21 Urine Color Yellow (Yellow) 05/06/18 09:05 Urine Clarity Clear 05/06/18 09:05 Urine pH 7.5 (5-8) 05/06/18 09:05 Ur Specific [place] 1.015 (1.005-1.025) 05/06/18 09:05 Urine Protein 100 mg/dL (Negative) H 05/06/18 09:05 Urine Ketones Negative mg/dL (Negative) 05/06/18 09:05 Urine Blood Trace-intact (Negative) H 05/06/18 09:05 Urine Nitrite Negative (Negative) 05/06/18 09:05 Urine Bilirubin Negative (Negative) 05/06/18 09:05 Urine Urobilinogen 0.2 EU/dL (Up TO 0.2) 05/06/18 09:05 Ur Leukocyte Esterase Negative (Negative) 05/06/18 09:05 Urine RBC 0-2 (0-2) 05/06/18 09:05 Urine WBC 0-2 HPF (0-5) 05/06/18 09:05 Ur Epithelial Cells Rare HPF (Negative) 05/06/18 09:05 Urine Crystals Negative HPF (Negative) 05/06/18 09:05 Urine Bacteria Rare HPF (Negative) 05/06/18 09:05 Urine Casts Negative LPF (Negative) 05/06/18 09:05 Urine Mucus Negative (Negative) 05/06/18 09:05 Urine Other Rare renal (Negative) 05/06/18 09:05 Ur Culture Indicated? No 05/06/18 09:05 Urine Glucose Negative mg/dL (Negative) 05/06/18 09:05 Urine Opiates Screen Negative (Negative) 05/06/18 09:05 Urine Methadone Screen Negative (Negative) 05/06/18 09:05 Ur Barbiturates Screen Negative (Negative) 05/06/18 09:05 Ur Tricyclics Screen Negative (Negative) 05/06/18 09:05 Ur Amphetamines Screen Negative (Negative) 05/06/18 09:05 U Benzodiazepines Scrn Negative (Negative) 05/06/18 09:05 Rhododendron 0.35 mmol/L (0.60-1.20) L 05/07/18 06:20 Urine Cocaine Screen Negative (Negative) 05/06/18 09:05 Ur THC Screen Negative (Negative) 05/06/18 09:05 Ethyl Alcohol < 3.0 mg/dL (<3) 05/06/18 09:21
[2018-05-07] MEDS: Simvastatin 20 MG TAB PO (21:11)
[2018-05-07] MEDS: Melatonin 3 MG TAB 6 MG PO (21:11)
[2018-05-08] VITALS (60 sets, daily range): BP systolic 152–229; BP diastolic 60–117; PULSE 52–78; RESP 11–29; TEMP 37–37.5; O2SAT 80–99
[2018-05-08 06:20] LABS: Abs Immature Grans 0.02 k/cumm (0.0-0.09); Absolute Basophil Count 0.02 k/cumm (0.0-0.2); Absolute Eosinophil Count 0.22 k/cumm (0.0-0.7); Absolute Lymphocyte Count 0.94 k/cumm (1.2-3.4); Absolute Monocyte Count 0.48 k/cumm (0.11-0.7); Absolute Neutrophil Count 5.75 k/cumm (1.2-6.7); Basophils % 0.3; HCT 29.3 % (36.0-46.0); HGB 8.7 g/dL (12.0-15.5); Immature Grans % 0.3; Lymphocytes % 12.7; Mean Corp. HGB Concentration 29.7 g/dL (32.0-36.0); Mean Corpuscular Hemoglobin 31.8 pg (27.0-33.0); Mean Corpuscular Volume 106.9 fL (80-95); Mean Platelet Volume 11.4 fL (8.0-11.0); Monocytes % 6.5; Neutrophils % 77.2; Platelet Count 121 x1000/uL (130-400); RBC 2.74 m/cumm (4.00-5.20); RBC Distribution Width 13.5 % (11.7-14.6); White Blood Cell Count 7.43 k/cumm (4.4-10.8)
[2018-05-08 06:44] LABS: Anion Gap 5.3 mmol/L (3-11); BUN 22 mg/dL (7-18); CO2 32.7 mmol/L (21.0-32.0); CREATININE 2.07 mg/dL (0.55-1.02); Calcium 8.5 mg/dL (8.5-10.1); Chloride 111 mmol/L (98-107); Estimated GFR 24.77 (mL/min/1.73m2); Glucose 102 mg/dL (70-100); Potassium 3.8 mmol/L (3.5-5.1); Sodium 149 mmol/L (136-145)
[2018-05-08] MEDS: Omeprazole 20 MG CAPCR PO (07:29)
[2018-05-08] MEDS: Docusate Sodium 100 MG CAP PO (08:21)
[2018-05-08] MEDS: Lisinopril 20 MG TAB PO (08:21)
[2018-05-08] MEDS: risperiDONE 1 MG TAB 2 MG PO (08:22)
[2018-05-08] MEDS: Potassium Chloride 10 MEQ TABCR 20 MEQ PO (08:22)
[2018-05-08] MEDS: Citalopram 20 MG TAB 40 MG PO (08:22)
[2018-05-08] MEDS: Ferrous Sulfate 325 MG TAB PO ×2 (08:22→19:52)
[2018-05-08] MEDS: Torsemide 20 MG TAB 10 MG PO (08:22)
[2018-05-08] MEDS: amLODIPine 10 MG TAB PO (08:22)
[2018-05-08] MEDS: hydrALAZINE 25 MG TAB 50 MG PO (08:22)
[2018-05-08] MEDS: Aspirin 81 MG CHEW PO (08:23)
[2018-05-08] MEDS: Isosorbide Mononitrate 30 MG TABCR PO (08:23)
[2018-05-08] MEDS: Carvedilol 25 MG TAB PO (08:23)
[2018-05-08] MEDS: Budesonide/Formoterol 160/4.5 6 GM 60 PUFF INH IH (09:01)
[2018-05-08] MEDS: Ibuprofen 600 MG TAB PO (09:21)
--- NOTE | 2018-05-08 09:26 | W.PM.PROGNOT ---
Date of service: 05/08/18 Time of Service: 09:26 Assessment and Plan (1) Healthcare-associated pneumonia: Current visit: Yes Status: Acute patient is on Zosyn and remains afebrile w/ normal WBC count. According to Dr. San's notes, the caregiver has been concerned that the patient may have been having some choking and aspiration. I will ask for S.T. consult. patient remains on honey thickened liquids. I will continue the Zosyn through today but consider de-escalation of her Zosyn to oral antibiotics. (2) Hypernatremia: Current visit: Yes Status: Acute improving with hypotonic saline, her cognition is improving and I suspect that she is getting back to her baseline. I will continue iv fluids for another day particularly since she is having diarrhea, However I have reduced the rate of her IV fluids and changed her to half-normal saline and discontinue the potassium since I will be replacing her torsemide with spironolactone (3) HTN (hypertension): Current visit: Yes Status: Chronic her HTN is worse despite multiple antihypertensive meds. I will adjust her hydralzine and carvedilol doses accordingly. I will replace her torsemide with spironolactone and I have written for as needed labetalol for extreme blood pressure elevations (4) Chronic renal insufficiency: Current visit: Yes Status: Acute her creatinine appears to be stable. However given her CKD and use of lisinopril, I am wondering if workup for secondary causes for her HTN have been pursued such as [place]'s or pheochromocytoma or hyperaldosteronism (5) Hypokalemia: Current visit: Yes Status: Resolved her hypokalemia has resolved w/ potassium supplemenation but she is still at risk for recurrent hypokalemia d/t her diarrhea However since I am Putting her on spironolactone I will discontinue the additional potassium supplementation particularly since she is on lisinopril (6) Diabetes type 2, controlled: Current visit: Yes Status: Chronic improving. glucose down to 116 mg/dL this a.m. she remains on moderate dose novolog sliding scale (7) Bipolar 1 disorder, depressed, severe: Current visit: Yes Status: Chronic she remains on lithium with low serum levels of 0.35. However, given her worsening renal function she really should not be on lithium and in fact some of her side effects including her polyuria and polydipsia may be attributed to her chronic use of lithium. She remains on Tegretol, cariprazine, citalopram, and risperidone. (8) Ischemic heart disease: Current visit: Yes Status: Chronic Patient's exhibited no signs or symptoms of ischemic exacerbation. She remains on isosorbide mononitrate. I have adjusted her carvedilol to treat her blood pressure increased her hydralazine as well. (9) Tibial plateau fracture, left: Current visit: Yes Status: Acute Patient remains in the left knee immobilizer is pretty much nonweightbearing (10) Discharge planning issues: Current visit: Yes Status: Acute Patient will return to [facility] once she is medically stable. Subjective Interval history since last seen: Patient is much more alert, she is requesting water and wants tylenol for pain in her right tibia (she has a tibial plateau fracture and is in a knee immobilizer). Her blood pressures have been high running in the 170's to 200 systolic. She is on multiple blood pressure medications including lisinopril, norvasc, hydralazine, carvedilol. Per nursing she has been taking all of her oral antihypertensive meds. She has been afebrile and her WBC is normal. Her renal impairment is about the same w/ creatinine of 2.07 and BUN of 22. Her sodium is down to 149 and her potassium is up to 3.8. Exam Const General: cooperative, comfortable and no acute distress Nutritional Appearance: obese Orientation: alert, awake and oriented to person Limitations: behavioral limitations [facility] Head: normal to inspection Neck Neck: normal visual inspection, full ROM and No JVD Carotids: normal carotid upstroke Chest Chest: normal inspection of the chest and normal palpation of entire chest wall Resp Effort & Inspection: normal respiratory effort and able to speak in complete sentences Auscultation: clear to auscultation bilaterally Cardio Jugular venous pressure: no JVD Palpation: normal PMI Rate: regular rate Rhythm: regular rhythm Heart Sounds: S1 normal, S2 normal and murmur systolic early, II/ and at the right sternal border Bruits: no abdominal aortic bruits GI Inspection: normal to inspection Palpation: soft and no hepatosplenomegaly Percussion: normal to percussion Auscultation: normal bowel sounds Rectal Exam - female: other Other: incontinent of light brown liquid stool Extrem Right lower extremity: knee Details: other (has knee immobilizer on) Other: left lower extremity in knee immobilizer but w/ good capillary refill in her left foot, no cyanosis Psych Mental Status: other (mentally slow but cooperative and able to express her needs) Speech and Movement: speech and movement normal Mood: congruent mood and other (mentally slow but cooperative and able to express her needs) Affect: normal affect Objective Objective Clinical Data: Abnormal lab results 05/07/18 05/08/18 05/08/18 Range/Units 06:20 05:45 05:45 RBC 2.74 L (4.00-5.20) m/cumm Hgb 8.7 L (12.0-15.5) g/dL Hct 29.3 L (36.0-46.0) % MCV 106.9 H (80-95) fL MCHC 29.7 L (32.0-36.0) g/dL Plt Count 121 L (130-400) x1000/uL MPV 11.4 H (8.0-11.0) fL Absolute Lymphocytes 0.94 L (1.2-3.4) k/cumm Sodium 149 H (136-145) mmol/L Chloride 111 H (98-107) mmol/L Carbon Dioxide 32.7 H (21.0-32.0) mmol/L BUN 22 H (7-18) mg/dL Creatinine 2.07 H (0.55-1.02) mg/dL Glucose 102 H (70-100) mg/dL [place] 0.35 L (0.60-1.20) mmol/L Vital Signs Temp 37.5 C 05/08/18 08:51 Pulse 72 05/08/18 09:01 Resp 24 05/08/18 09:01 BP 202/99 H 05/08/18 09:01 Pulse Ox 97 05/08/18 09:01 Intake & Output 05/07/18 05/07/18 05/08/18 11:59 23:59 11:59 Intake Total 2176 / 2176 3331.333 / 3331.333 1895 / 1895 Output Total 900 / 900 3250 / 3250 2150 / 2150 Balance 1276 / 1276 81.333 / 81.333 -255 / -255 Weight 115.2 kg 116.1 kg Intake: IV 1100 / 1100 868.333 / 868.333 715 / 715 Oral 1076 / 1076 2463 / 2463 1180 / 1180 Output: Urine 900 / 900 3250 / 3250 2150 / 2150 Other: Urine Color Pale Pale Yellow Yellow Urine Appearance Clear Clear Clear Urine Odor None Comment Indwelling Braswell catheter. braswell in place Clear pale yellow in Braswell tubing. Stool Occult Blood Negative Stool Size Smear Moderate Stool Characteristics Soft Soft Brown Liquid Brown Voiding Methods Indwelling Catheter Laboratory Results WBC 7.43 k/cumm (4.4-10.8) 05/08/18 05:45 RBC 2.74 m/cumm (4.00-5.20) L 05/08/18 05:45 Hgb 8.7 g/dL (12.0-15.5) L 05/08/18 05:45 Hct 29.3 % (36.0-46.0) L 05/08/18 05:45 MCV 106.9 fL (80-95) H 05/08/18 05:45 MCH 31.8 pg (27.0-33.0) 05/08/18 05:45 MCHC 29.7 g/dL (32.0-36.0) L 05/08/18 05:45 RDW 13.5 % (11.7-14.6) 05/08/18 05:45 Plt Count 121 x1000/uL (130-400) L 05/08/18 05:45 MPV 11.4 fL (8.0-11.0) H 05/08/18 05:45 Immature Gran % 0.3 05/08/18 05:45 Neutrophils % 77.2 05/08/18 05:45 Lymphocytes % 12.7 05/08/18 05:45 Monocytes % 6.5 05/08/18 05:45 Eosinophils % 3.0 05/08/18 05:45 Basophils % 0.3 05/08/18 05:45 Absolute Neutrophils 5.75 k/cumm (1.2-6.7) 05/08/18 05:45 Absolute Lymphocytes 0.94 k/cumm (1.2-3.4) L 05/08/18 05:45 Absolute Monocytes 0.48 k/cumm (0.11-0.7) 05/08/18 05:45 Absolute Eosinophils 0.22 k/cumm (0.0-0.7) 05/08/18 05:45 Absolute Basophils 0.02 k/cumm (0.0-0.2) 05/08/18 05:45 Differential Comment Rbc morph reviewed 05/06/18 09:21 RBC Morphology See below 05/06/18 09:21 Hypochromasia 1+ 05/06/18 09:21 Macrocytosis 2+ 05/06/18 09:21 Sodium 149 mmol/L (136-145) H 05/08/18 05:45 Potassium 3.8 mmol/L (3.5-5.1) 05/08/18 05:45 Chloride 111 mmol/L (98-107) H 05/08/18 05:45 Carbon Dioxide 32.7 mmol/L (21.0-32.0) H 05/08/18 05:45 Anion Gap 5.3 mmol/L (3-11) 05/08/18 05:45 BUN 22 mg/dL (7-18) H 05/08/18 05:45 Creatinine 2.07 mg/dL (0.55-1.02) H 05/08/18 05:45 Estimated GFR/1.73 m2 24.77 (mL/min/1.73m2) 05/08/18 05:45 Glucose 102 mg/dL (70-100) H 05/08/18 05:45 Calcium 8.5 mg/dL (8.5-10.1) 05/08/18 05:45 Magnesium 2.3 mg/dL (1.8-2.4) 05/06/18 09:21 Total Bilirubin 0.2 mg/dL (0.2-1.0) 05/07/18 06:20 Conjugated Bilirubin 0.12 mg/dL (0.00-0.20) 05/06/18 09:21 AST 11 U/L (15-37) L 05/07/18 06:20 ALT 16 U/L (12-78) 05/07/18 06:20 Alkaline Phosphatase 107 U/L (46-116) 05/07/18 06:20 Troponin I 0.06 ng/mL (0.00-0.06) 05/06/18 09:21 NT-Pro-B Natriuret Pep 47967 pg/mL (-299) H 05/06/18 09:21 Total Protein 5.4 g/dL (6.4-8.2) L 05/07/18 06:20 Albumin 3.2 g/dL (3.4-5.0) L 05/07/18 06:20 TSH 1.07 uIU/mL (0.358-3.74) 05/06/18 09:21 Urine Color Yellow (Yellow) 05/06/18 09:05 Urine Clarity Clear 05/06/18 09:05 Urine pH 7.5 (5-8) 05/06/18 09:05 Ur Specific [place] 1.015 (1.005-1.025) 05/06/18 09:05 Urine Protein 100 mg/dL (Negative) H 05/06/18 09:05 Urine Ketones Negative mg/dL (Negative) 05/06/18 09:05 Urine Blood Trace-intact (Negative) H 05/06/18 09:05 Urine Nitrite Negative (Negative) 05/06/18 09:05 Urine Bilirubin Negative (Negative) 05/06/18 09:05 Urine Urobilinogen 0.2 EU/dL (Up TO 0.2) 05/06/18 09:05 Ur Leukocyte Esterase Negative (Negative) 05/06/18 09:05 Urine RBC 0-2 (0-2) 05/06/18 09:05 Urine WBC 0-2 HPF (0-5) 05/06/18 09:05 Ur Epithelial Cells Rare HPF (Negative) 05/06/18 09:05 Urine Crystals Negative HPF (Negative) 05/06/18 09:05 Urine Bacteria Rare HPF (Negative) 05/06/18 09:05 Urine Casts Negative LPF (Negative) 05/06/18 09:05 Urine Mucus Negative (Negative) 05/06/18 09:05 Urine Other Rare renal (Negative) 05/06/18 09:05 Ur Culture Indicated? No 05/06/18 09:05 Urine Glucose Negative mg/dL (Negative) 05/06/18 09:05 Urine Opiates Screen Negative (Negative) 05/06/18 09:05 Urine Methadone Screen Negative (Negative) 05/06/18 09:05 Ur Barbiturates Screen Negative (Negative) 05/06/18 09:05 Ur Tricyclics Screen Negative (Negative) 05/06/18 09:05 Ur Amphetamines Screen Negative (Negative) 05/06/18 09:05 U Benzodiazepines Scrn Negative (Negative) 05/06/18 09:05 [place] 0.35 mmol/L (0.60-1.20) L 05/07/18 06:20 Urine Cocaine Screen Negative (Negative) 05/06/18 09:05 Ur THC Screen Negative (Negative) 05/06/18 09:05 Ethyl Alcohol < 3.0 mg/dL (<3) 05/06/18 09:21 Repeat chest x-ray today shows unchanged cardiomegaly and minimal interstitial lung scarring with mildly increased density at the left lung base possibly related to consolidation and/or pleural effusion.
[2018-05-08] MEDS: Lithium Carbonate 300 MG CAP PO (09:51)
[2018-05-08] MEDS: Acetaminophen 325 MG TAB PO ×2 (09:54→19:51)
[2018-05-08] MEDS: POTASSIUM CHLORIDE/0.45% NACL 1,000 ML 100 MEQ IV (11:14)
--- NOTE | 2018-05-08 11:54 | PDOC.CMPRO ---
Care Management Progress Note S/O: Tona was sleeping soundly when CM attempted to meet with her this morning. CM called [facility] to provide clinical update and faxed clinicals to [facility] for review. NEHA spoke with Adeel SHORT who reported she would reach out to her electrician substation supervisor and respond to this typewriter ribbon winder with determination regarding possibility of weekend admissions in the event Tona is ready to return to [facility]. A: 58 year old female admitted to [facility] 05/06/18 for LLL Pneumonia, Hypernatremia P: [facility] medically ready per provider. NEHA has faxed updated clinicals to director of instruction at [facility]. She remains in ICU at this time due to requiring IV medications to manage her high blood pressures. CM to continue to provide support to patient and care team ongoing discharge planning.
--- NOTE | 2018-05-08 12:02 | CMPROGNOTE_ITS ---
Care Management Progress Note S/O: Tona was sleeping soundly when CM attempted to meet with her this morning. CM called [facility] to provide clinical update and faxed clinicals to [facility] for review. NEHA spoke with Adeel SHORT who reported she would reach out to her carpenter supervisor and respond to this underwriter solicitation director with determination regarding possibility of weekend admissions in the event Tona is ready to return to [facility]. A: 58 year old female admitted to [facility] 05/06/18 for LLL Pneumonia, Hypernatremia P: Tona will [facility] to [facility] when medically ready per provider. NEHA has faxed updated clinicals to director talent at [facility]. She remains in ICU at this time due to requiring IV medications to manage her high blood pressures. CM to continue to provide support to patient and care team ongoing discharge planning.
--- NOTE | 2018-05-08 12:15 | DI.RAD_ITS ---
SYMPTOM/DIAGNOSIS: F/U PNEUMONIA PORTABLE AP CHEST: Comparison is made with 05/06/18. Heart size remains enlarged. Pulmonary vasculature is within normal limits. The right lung shows no focal consolidating infiltrates. There is opacification in the left lung base with obscuration of the left hemidiaphragm, particularly medially. This is unchanged. A left basilar infiltrate or pleural effusion should be considered. IMPRESSION: Opacity in the left lung base. This may represent a left pleural effusion or infiltrate.
[2018-05-08] MEDS: hydrALAZINE 25 MG TAB 100 MG PO ×2 (13:42→19:51)
[2018-05-08] MEDS: Enoxaparin 30 MG/0.3 ML SYR SC (13:43)
--- NOTE | 2018-05-08 13:48 | DI.VRAD_ITS ---
EXAM: XR Chest, 1 View CLINICAL HISTORY: 58 years old, female; Signs and symptoms; Other: F/u pneumonia TECHNIQUE: Frontal view of the chest. COMPARISON: CR - XR CHEST 2V PA LATERAL 05/06/2018 8:15 AM FINDINGS: Mild cardiomegaly unchanged. Minimal interstitial lung scarring. Mild increased density at the left lung base possibly related to the cardiomegaly however consolidation and/or pleural effusion cannot entirely be excluded. Correlation with other findings recommended. IMPRESSION: Cannot exclude consolidation at the left lung base. Dictated and Authenticated by: Leo Alvarez MD. Ordering:[facility] JAYSHREE FLORENCE MD
[2018-05-08 17:09] LABS: Anion Gap 7.1 mmol/L (3-11); BUN 23 mg/dL (7-18); CO2 29.9 mmol/L (21.0-32.0); Calcium 8.7 mg/dL (8.5-10.1); Chloride 112 mmol/L (98-107); Estimated GFR 24.36 (mL/min/1.73m2); Glucose 110 mg/dL (70-100); Potassium 4.2 mmol/L (3.5-5.1); Sodium 149 mmol/L (136-145)
[2018-05-08] MEDS: Labetalol 100 MG/20 ML VIAL 20 MG IVP (19:50)
[2018-05-08] MEDS: Normal Saline Flush 10 ML SYR IVP (19:50)
[2018-05-08] MEDS: Carvedilol 25 MG TAB 50 MG PO (19:51)
[2018-05-08] MEDS: Melatonin 3 MG TAB 6 MG PO (21:07)
[2018-05-08] MEDS: risperiDONE 0.5 MG TAB PO (21:07)
[2018-05-08] MEDS: DEXTROSE 5%-0.45% SALINE 1,000 ML 50 ML IV (21:08)
[2018-05-08] MEDS: Simvastatin 20 MG TAB PO (21:08)
[2018-05-08] MEDS: Dexamethasone 1 MG TAB PO (21:15)
[2018-05-09] VITALS (61 sets, daily range): BP systolic 127–227; BP diastolic 60–131; PULSE 50–80; RESP 14–25; TEMP 35.9–37.6; O2SAT 92–96
[2018-05-09] MEDS: Labetalol 100 MG/20 ML VIAL 20 MG IVP ×2 (02:10→07:32)
[2018-05-09 07:00] LABS: Abs Immature Grans 0.03 k/cumm (0.0-0.09); Absolute Basophil Count 0.01 k/cumm (0.0-0.2); Absolute Eosinophil Count 0.18 k/cumm (0.0-0.7); Absolute Lymphocyte Count 0.79 k/cumm (1.2-3.4); Absolute Monocyte Count 0.29 k/cumm (0.11-0.7); Absolute Neutrophil Count 5.01 k/cumm (1.2-6.7); Basophils % 0.2; Eosinophils % 2.9; HCT 30.5 % (36.0-46.0); HGB 9.2 g/dL (12.0-15.5); Immature Grans % 0.5; Lymphocytes % 12.5; Mean Corp. HGB Concentration 30.2 g/dL (32.0-36.0); Mean Corpuscular Hemoglobin 31.8 pg (27.0-33.0); Mean Corpuscular Volume 105.5 fL (80-95); Mean Platelet Volume 10.8 fL (8.0-11.0); Monocytes % 4.6; Neutrophils % 79.3; Platelet Count 103 x1000/uL (130-400); RBC 2.89 m/cumm (4.00-5.20); RBC Distribution Width 13.5 % (11.7-14.6); White Blood Cell Count 6.31 k/cumm (4.4-10.8)
[2018-05-09 07:07] LABS: Anion Gap 7.3 mmol/L (3-11); BUN 18 mg/dL (7-18); CO2 31.7 mmol/L (21.0-32.0); CREATININE 2.17 mg/dL (0.55-1.02); Calcium 8.6 mg/dL (8.5-10.1); Chloride 115 mmol/L (98-107); Estimated GFR 23.46 (mL/min/1.73m2); Glucose 124 mg/dL (70-100); Potassium 3.6 mmol/L (3.5-5.1); Sodium 154 mmol/L (136-145)
--- NOTE | 2018-05-09 07:22 | PDOC.CMPRO ---
Care Management Progress Note S/O: Tona was lying in bed with her eyes closed when CM entered her room. Per RN; Norah, Tona has been attempting to throw herself onto the floor out of her bed. She requires constant oversight and support. CM faxed updated clinicals to [facility] for review. Per MD, he continues to adjust medications due to unstable pressures. A: 58 year old female admitted to [facility] 05/06/18 for LLL Pneumonia, Hypernatremia P: Tona will [facility] to [facility] when medically ready per provider. CM faxed updated clinicals to director of sports medicine at [facility]. She remains in ICU at this time due to requiring IV medications to manage her high blood pressures. CM to continue to provide support to patient and care team ongoing discharge planning.
[2018-05-09 07:25] LABS: Basophilic Stippling Present; Diff Comment RBC Morph Reviewed
[2018-05-09 07:26] LABS: Macrocytosis 1+; Polychromasia Present
--- NOTE | 2018-05-09 07:33 | CMPROGNOTE_ITS ---
Care Management Progress Note S/O: Tona was lying in bed with her eyes closed when CM entered her room. Per RN; Norah, Tona has been attempting to throw herself onto the floor out of her bed. She requires constant oversight and support. CM faxed updated clinicals to [facility] for review. Per MD, he continues to adjust medications due to unstable pressures. A: 58 year old female admitted to [facility] 05/06/18 for LLL Pneumonia, Hypernatremia P: Tona will return to [facility] when medically ready per provider. CM faxed updated clinicals to aeronautics commission director at [facility]. She remains in ICU at this time due to requiring IV medications to manage her high blood pressures. CM to continue to provide support to patient and care team ongoing discharge planning.
[2018-05-09] MEDS: Omeprazole 20 MG CAPCR PO (07:34)
[2018-05-09] MEDS: Lisinopril 20 MG TAB 40 MG PO (08:14)
[2018-05-09] MEDS: Carvedilol 25 MG TAB 50 MG PO ×2 (08:14→21:20)
[2018-05-09] MEDS: Aspirin 81 MG CHEW PO (08:14)
[2018-05-09] MEDS: Citalopram 20 MG TAB 40 MG PO (08:15)
[2018-05-09] MEDS: Spironolactone 50 MG TAB PO (08:15)
[2018-05-09] MEDS: Isosorbide Mononitrate 30 MG TABCR PO (08:15)
[2018-05-09] MEDS: risperiDONE 1 MG TAB 2 MG PO (08:15)
[2018-05-09] MEDS: amLODIPine 10 MG TAB PO (08:15)
[2018-05-09] MEDS: Ferrous Sulfate 325 MG TAB PO ×2 (08:15→21:20)
[2018-05-09] MEDS: Acetaminophen 325 MG TAB PO (08:16)
[2018-05-09] MEDS: hydrALAZINE 25 MG TAB 100 MG PO ×2 (09:24→13:20)
[2018-05-09] MEDS: Insulin Aspart 300 UNITS/3 ML PEN SC (13:12)
[2018-05-09] MEDS: Enoxaparin 30 MG/0.3 ML SYR SC (13:12)
--- NOTE | 2018-05-09 16:53 | W.PM.PROGNOT ---
Date of service: 05/09/18 Time of Service: 16:54 Assessment and Plan (1) Healthcare-associated pneumonia: Current visit: Yes Status: Acute Patient remains afebrile and has no leukocytosis. She is still on Zosyn. Repeat CXR yesterday continues to demonstrate left lung base infiltrate or effusion even though clinically she is improving. She is beginning day #4 of her Zosyn. I will continue her on through the weekend and consider switching to oral antibiotics tomorrow as long as she remains afebrile. Hopefully we can get her back to [facility] early to mid week. However we have to get her blood pressure and hypernatremia under control. (2) Hypernatremia: Current visit: Yes Status: Acute worsening hypernatremia today. sodium has actually risne to 154 today from 149. I will switch her 0.45% NS w/ KCl over to D5W. I have calculated her free water deficit at 4.34 L and therefore we should try to give half of this over next 24 hr. and therefore I have ordered D5W at 100 mL/hr and will monitor her BMP. Also, I believe that she probably has DI from her [place]. (3) HTN (hypertension): Current visit: Yes Status: Chronic poorly controlled BP last night and this a.m., therefore I have put her on a nicardipine drip (4) Chronic renal insufficiency: Current visit: Yes Status: Acute creatinine remains stable at 2.1. She has solitary kidney as she had a nephrectomy in 02/02/[address] Gandhi at [facility] in [place], [place] for recurrent kidney stones and recurrent pyelonephritis (5) Diabetes type 2, controlled: Current visit: Yes Status: Chronic glucose has been well controlle while an inpatient (running 117 to 167). 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 However, I have kept all of her other psychiatric meds (7) Ischemic heart disease: Current visit: Yes Status: Chronic Patient's exhibited no signs or symptoms of ischemic exacerbation. She remains on isosorbide mononitrate. I have adjusted her carvedilol to treat her blood pressure increased her hydralazine as well. (8) Tibial plateau fracture, left: Current visit: Yes Status: Acute Patient remains in the left knee immobilizer is pretty much nonweightbearing (9) Discharge planning issues: Current visit: Yes Status: Acute Patient will return to [facility] once she is medically stable. Subjective Interval history since last seen: Patient is much more alert, she is requesting water and wants tylenol for pain in her right tibia (she has a tibial plateau fracture and is in a knee immobilizer). Her blood pressures have been high running in the 190-215 mm systolic. She is on multiple blood pressure medications including lisinopril, norvasc, hydralazine, carvedilol. Per nursing she has been taking all of her oral antihypertensive meds. Yesterday I increased her lisinopril to 40 mg daily which began this morning. I also increased her carvedilol to 50 mg twice a day beginning last night. And I added spironolactone beginning this a.m. In spite of this her blood pressures have been running in the 210s-220s systolic with diastolic readings of 105-129. Because of this I started her on nicardipine drip which we have been titrating today up to 7.5 mg an hour and we have just got her blood pressures down in the 160s-180 range with diastolics running in the 70s-80s. She has been afebrile and her WBC is normal. Her renal impairment is about the same w/ creatinine of 2.17 and BUN of 18. Her sodium is up to 154 and her potassium is up to 3.8. Exam Const General: cooperative, comfortable and no acute distress Nutritional Appearance: obese Orientation: alert, awake and oriented to person Limitations: behavioral limitations Neck Neck: normal visual inspection, full ROM and No JVD Carotids: normal carotid upstroke Chest Chest: normal inspection of the chest and normal palpation of entire chest wall Resp Effort & Inspection: normal respiratory effort and able to speak in complete sentences Auscultation: clear to auscultation bilaterally Cardio Jugular venous pressure: no JVD Palpation: normal PMI Rate: regular rate Rhythm: regular rhythm Heart Sounds: S1 normal, S2 normal and murmur systolic Bruits: no abdominal aortic bruits Pulses: normal peripheral pulses GI Inspection: normal to inspection Palpation: soft and no hepatosplenomegaly Percussion: normal to percussion Auscultation: normal bowel sounds Rectal Exam - female: other Neuro General: alert, awake and moves all extremities Speech: speech normal Motor: muscle tone normal throughout and strength 5/5 throughout (I did not assess her strength in her left leg as she has a tibial plateau fracture) Sensory Exam: no sensory deficits noted Extrem Right lower extremity: knee Details: other (has knee immobilizer on) Psych Mental Status: other (mentally slow but cooperative and able to express her needs) Speech and Movement: speech and movement normal Mood: congruent mood and other (mentally slow but cooperative and able to express her needs) Affect: normal affect Objective Objective Clinical Data: Abnormal lab results 05/08/18 05/09/18 05/09/18 Range/Units 16:48 06:50 06:50 RBC 2.89 L (4.00-5.20) m/cumm Hgb 9.2 L (12.0-15.5) g/dL Hct 30.5 L (36.0-46.0) % MCV 105.5 H (80-95) fL MCHC 30.2 L (32.0-36.0) g/dL Plt Count 103 L (130-400) x1000/uL Absolute Lymphocytes 0.79 L (1.2-3.4) k/cumm Sodium 149 H 154 H (136-145) mmol/L Chloride 112 H 115 H (98-107) mmol/L BUN 23 H (7-18) mg/dL Creatinine 2.10 H 2.17 H (0.55-1.02) mg/dL Glucose 110 H 124 H (70-100) mg/dL Vital Signs Temp 35.9 C L 05/09/18 07:53 Pulse 68 05/09/18 15:16 Resp 16 05/09/18 15:16 BP 172/72 H 05/09/18 15:16 Pulse Ox 92 L 05/09/18 02:31 Intake & Output 05/08/18 05/09/18 05/09/18 23:59 11:59 23:59 Intake Total 2148.334 / 2148.334 751 / 751 30.833 / 30.833 Output Total 3150 / 3150 1650 / 1650 Balance -1001.666 / -1001.666 -899 / -899 30.833 / 30.83 Weight 115.2 kg Intake: IV 718.334 / 718.334 551 / 551 30.833 / 30.833 Oral 1430 / 1430 200 / 200 Output: Urine 3150 / 3150 1650 / 1650 Other: Urine Color Pale Yellow Yellow Urine Appearance Clear Clear Comment Fox in place draining clear pale yellow urine. Fox in place draining clear pale yellow urine. Stool Occult Blood Negative Stool Size Copious Moderate Stool Characteristics Soft Soft [place] Laboratory Results WBC 6.31 k/cumm (4.4-10.8) 05/09/18 06:50 RBC 2.89 m/cumm (4.00-5.20) L 05/09/18 06:50 Hgb 9.2 g/dL (12.0-15.5) L 05/09/18 06:50 Hct 30.5 % (36.0-46.0) L 05/09/18 06:50 MCV 105.5 fL (80-95) H 05/09/18 06:50 MCH 31.8 pg (27.0-33.0) 05/09/18 06:50 MCHC 30.2 g/dL (32.0-36.0) L 05/09/18 06:50 RDW 13.5 % (11.7-14.6) 05/09/18 06:50 Plt Count 103 x1000/uL (130-400) L 05/09/18 06:50 MPV 10.8 fL (8.0-11.0) 05/09/18 06:50 Immature Gran % 0.5 05/09/18 06:50 Neutrophils % 79.3 05/09/18 06:50 Lymphocytes % 12.5 05/09/18 06:50 Monocytes % 4.6 05/09/18 06:50 Eosinophils % 2.9 05/09/18 06:50 Basophils % 0.2 05/09/18 06:50 Absolute Neutrophils 5.01 k/cumm (1.2-6.7) 05/09/18 06:50 Absolute Lymphocytes 0.79 k/cumm (1.2-3.4) L 05/09/18 06:50 Absolute Monocytes 0.29 k/cumm (0.11-0.7) 05/09/18 06:50 Absolute Eosinophils 0.18 k/cumm (0.0-0.7) 05/09/18 06:50 Absolute Basophils 0.01 k/cumm (0.0-0.2) 05/09/18 06:50 Differential Comment Rbc morph reviewed 05/09/18 06:50 RBC Morphology See below 05/09/18 06:50 Polychromasia Present 05/09/18 06:50 Hypochromasia 1+ 05/06/18 09:21 Basophilic Stippling Present 05/09/18 06:50 Macrocytosis 1+ 05/09/18 06:50 Sodium 154 mmol/L (136-145) H 05/09/18 06:50 Potassium 3.6 mmol/L (3.5-5.1) 05/09/18 06:50 Chloride 115 mmol/L (98-107) H 05/09/18 06:50 Carbon Dioxide 31.7 mmol/L (21.0-32.0) 05/09/18 06:50 Anion Gap 7.3 mmol/L (3-11) 05/09/18 06:50 BUN 18 mg/dL (7-18) 05/09/18 06:50 Creatinine 2.17 mg/dL (0.55-1.02) H 05/09/18 06:50 Estimated GFR/1.73 m2 23.46 (mL/min/1.73m2) 05/09/18 06:50 Glucose 124 mg/dL (70-100) H 05/09/18 06:50 Calcium 8.6 mg/dL (8.5-10.1) 05/09/18 06:50 Magnesium 2.3 mg/dL (1.8-2.4) 05/06/18 09:21 Total Bilirubin 0.2 mg/dL (0.2-1.0) 05/07/18 06:20 Conjugated Bilirubin 0.12 mg/dL (0.00-0.20) 05/06/18 09:21 AST 11 U/L (15-37) L 05/07/18 06:20 ALT 16 U/L (12-78) 05/07/18 06:20 Alkaline Phosphatase 107 U/L (46-116) 05/07/18 06:20 Troponin I 0.06 ng/mL (0.00-0.06) 05/06/18 09:21 NT-Pro-B Natriuret Pep 50035 pg/mL (-299) H 05/06/18 09:21 Total Protein 5.4 g/dL (6.4-8.2) L 05/07/18 06:20 Albumin 3.2 g/dL (3.4-5.0) L 05/07/18 06:20 TSH 1.07 uIU/mL (0.358-3.74) 05/06/18 09:21 Urine Color Yellow (Yellow) 05/06/18 09:05 Urine Clarity Clear 05/06/18 09:05 Urine pH 7.5 (5-8) 05/06/18 09:05 Ur Specific [place] 1.015 (1.005-1.025) 05/06/18 09:05 Urine Protein 100 mg/dL (Negative) H 05/06/18 09:05 Urine Ketones Negative mg/dL (Negative) 05/06/18 09:05 Urine Blood Trace-intact (Negative) H 05/06/18 09:05 Urine Nitrite Negative (Negative) 05/06/18 09:05 Urine Bilirubin Negative (Negative) 05/06/18 09:05 Urine Urobilinogen 0.2 EU/dL (Up TO 0.2) 05/06/18 09:05 Ur Leukocyte Esterase Negative (Negative) 05/06/18 09:05 Urine RBC 0-2 (0-2) 05/06/18 09:05 Urine WBC 0-2 HPF (0-5) 05/06/18 09:05 Ur Epithelial Cells Rare HPF (Negative) 05/06/18 09:05 Urine Crystals Negative HPF (Negative) 05/06/18 09:05 Urine Bacteria Rare HPF (Negative) 05/06/18 09:05 Urine Casts Negative LPF (Negative) 05/06/18 09:05 Urine Mucus Negative (Negative) 05/06/18 09:05 Urine Other Rare renal (Negative) 05/06/18 09:05 Ur Culture Indicated? No 05/06/18 09:05 Urine Glucose Negative mg/dL (Negative) 05/06/18 09:05 Urine Opiates Screen Negative (Negative) 05/06/18 09:05 Urine Methadone Screen Negative (Negative) 05/06/18 09:05 Ur Barbiturates Screen Negative (Negative) 05/06/18 09:05 Ur Tricyclics Screen Negative (Negative) 05/06/18 09:05 Ur Amphetamines Screen Negative (Negative) 05/06/18 09:05 U Benzodiazepines Scrn Negative (Negative) 05/06/18 09:05 [place] 0.35 mmol/L (0.60-1.20) L 05/07/18 06:20 Urine Cocaine Screen Negative (Negative) 05/06/18 09:05 Ur THC Screen Negative (Negative) 05/06/18 09:05 Ethyl Alcohol < 3.0 mg/dL (<3) 05/06/18 09:21
[2018-05-09] MEDS: DEXTROSE 5%-WATER 1,000 ML 100 ML IV (17:43)
--- NOTE | 2018-05-09 18:55 | NUR.NOTE ---
185: Called Tona Mcghee on her cell phone # [phone] and left a voice message asking her to call nursing back at [phone] so we may update her. Awaiting a return call.
[2018-05-09] MEDS: Melatonin 3 MG TAB 6 MG PO (21:19)
[2018-05-09] MEDS: Docusate Sodium 100 MG CAP PO (21:20)
[2018-05-09] MEDS: hydrALAZINE 10 MG TAB 100 MG PO (21:21)
[2018-05-09] MEDS: Simvastatin 20 MG TAB PO (21:21)
[2018-05-10] VITALS (57 sets, daily range): BP systolic 126–200; BP diastolic 55–104; PULSE 48–76; RESP 13–26; TEMP 36.2–37.4; O2SAT 89–97
[2018-05-10 00:31] LABS: BUN 17 mg/dL (7-18); CREATININE 2.02 mg/dL (0.55-1.02); Calcium 8.1 mg/dL (8.5-10.1); Chloride 113 mmol/L (98-107); Estimated GFR 25.48 (mL/min/1.73m2); Glucose 121 mg/dL (70-100); Potassium 3.2 mmol/L (3.5-5.1); Sodium 151 mmol/L (136-145)
[2018-05-10] MEDS: DEXTROSE 5%-WATER 500 ML 100 ML IV ×4 (05:22→21:01)
[2018-05-10] MEDS: Omeprazole 20 MG CAPCR PO (06:34)
[2018-05-10 07:08] LABS: Anion Gap 6.5 mmol/L (3-11); BUN 16 mg/dL (7-18); CO2 30.5 mmol/L (21.0-32.0); CREATININE 2.12 mg/dL (0.55-1.02); Calcium 8.4 mg/dL (8.5-10.1); Chloride 113 mmol/L (98-107); Glucose 125 mg/dL (70-100); Potassium 3.3 mmol/L (3.5-5.1); Sodium 150 mmol/L (136-145)
[2018-05-10 07:39] LABS: Vitamin B12 509 pg/mL (193-986)
[2018-05-10 07:40] LABS: Folate > 20.0 ng/mL (8.6-20.0)
[2018-05-10] MEDS: Citalopram 20 MG TAB 40 MG PO (08:58)
[2018-05-10] MEDS: Aspirin 81 MG CHEW PO (08:58)
[2018-05-10] MEDS: Spironolactone 50 MG TAB PO ×2 (08:58→11:52)
[2018-05-10] MEDS: Isosorbide Mononitrate 30 MG TABCR PO (08:59)
[2018-05-10] MEDS: Lisinopril 20 MG TAB 40 MG PO (08:59)
[2018-05-10] MEDS: amLODIPine 10 MG TAB PO (08:59)
[2018-05-10] MEDS: risperiDONE 1 MG TAB 2 MG PO (08:59)
[2018-05-10] MEDS: Ferrous Sulfate 325 MG TAB PO ×2 (09:03→19:48)
[2018-05-10] MEDS: Budesonide/Formoterol 160/4.5 6 GM 60 PUFF INH IH (09:04)
[2018-05-10] MEDS: Carvedilol 25 MG TAB 50 MG PO ×2 (09:04→19:48)
[2018-05-10] MEDS: hydrALAZINE 25 MG TAB 100 MG PO ×3 (09:04→19:48)
[2018-05-10] MEDS: Acetaminophen 325 MG TAB PO ×2 (09:31→17:45)
[2018-05-10] MEDS: Normal Saline Flush 10 ML SYR IVP ×3 (10:38→17:47)
--- NOTE | 2018-05-10 11:51 | PGE_ITS ---
Date of service: 05/10/18 Time of Service: 11:51 Assessment and Plan (1) Healthcare-associated pneumonia: Current visit: Yes Status: Acute Patient is now beginning day #4 of her IV Zosyn. She is completed 3-1/2 full days of IV antibiotics. She remains afebrile. 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 Sodium it is now down to 150. I will continue on D5W and monitor her electrolytes. Get another BMP tonight and then again in the morning. I have also given her some doses of oral potassium to correct her hypokalemia. Because her blood pressure is required multiple medications to control I have added spironolactone which should help with the hypokalemia. I still believe that her hypernatremia secondary to diabetes insipidus caused by her lithium and I have discontinued her lithium. (3) HTN (hypertension): Current visit: Yes Status: Chronic Patient was weaned off the nicardipine drip last night. I have increased her spironolactone to 100 mg daily. She remains on carvedilol 50 Milgram's twice a day along with amlodipine 10 mg daily and lisinopril 40 mg daily (4) Chronic renal insufficiency: Current visit: Yes Status: Acute creatinine remains stable at 2.1. She has solitary kidney as she had a nephrectomy in 02/02/[address] Gandhi at [facility] in [place], [place] for recurrent kidney stones and recurrent pyelonephritis (5) Diabetes type 2, controlled: Current visit: Yes Status: Chronic glucose has been well controlle while an inpatient (running 126-149). 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 However, I have kept all of her other psychiatric meds (7) Tibial plateau fracture, left: Current visit: Yes Status: Acute Patient remains in the left knee immobilizer is pretty much nonweightbearing. Because of her increased pain is not controlled by Tylenol and added Tylenol No. 3's to her pain regimen. I considered Ultram but there are multiple drug interactions with her psychiatric medications. I will check a repeat x-ray of her left tib-fib (8) Discharge planning issues: Current visit: Yes Status: Acute Patient will return to [facility] once she is medically stable. Subjective Patient reports: still having pain Interval history since last seen: Patient is still having significant pain over her left knee. I met with the patient's public guardian Tona Wendie, who informed me that while the patient was hospitalized at [facility] in [facility] they attempted to get the patient out of bed and ever since then she has had increased pain over the left tibia where she has a plateau fracture. When indicated that the patient has a scheduled follow-up with her orthopedic surgeon at [facility], Dr. Tsai, on May 19. When I would like the patient have a follow-up x-ray of the left tibia and I told her that we could accomplish that today. Tona would also like me to touch base with the patient's psychiatrist Dr. Young at [facility] regarding her bipolar medications. She has recently been started on a newer anti-psychotic, Vraylar. She has been receiving this while here at [facility]. I explained to Tona that I have put her lithium on hold over the weekend d/t my concern that this may be the cause for her refractory hypernatremia. I told Tona that I would call Dr. Whitley (Tona indicated that I should ask for Dr. Agni Saldana's nurse). Tona also told me that the patient's PCP is Dr. Dangelo who did not feel that the lithium was causing her DI. The patient has a follow up in the nephrology clinic at [facility] on 05/12. Exam Const General: cooperative, comfortable and no acute distress Nutritional Appearance: obese Orientation: alert, awake and oriented to person Limitations: behavioral limitations HENMT Head: normal to inspection Neck Neck: normal visual inspection, full ROM and No JVD Carotids: normal carotid upstroke Chest Chest: normal inspection of the chest and normal palpation of entire chest wall Resp Effort & Inspection: normal respiratory effort and able to speak in complete sentences Auscultation: clear to auscultation bilaterally Cardio Jugular venous pressure: no JVD Palpation: normal PMI Rate: regular rate Rhythm: regular rhythm Heart Sounds: S1 normal, S2 normal and murmur systolic Bruits: no abdominal aortic bruits Pulses: normal peripheral pulses GI Inspection: normal to inspection Palpation: soft and no hepatosplenomegaly Percussion: normal to percussion Auscultation: normal bowel sounds Rectal Exam - female: other Neuro General: alert, awake and moves all extremities Speech: speech normal Motor: muscle tone normal throughout and strength 5/5 throughout (I did not assess her strength in her left leg as she has a tibial plateau fracture) Sensory Exam: no sensory deficits noted Extrem Right lower extremity: knee Details: other (has knee immobilizer on) Left lower extremity: normal to inspection and knee Details: tenderness Location : of the patella and of the lateral joint line; no swelling; no edema Psych Mental Status: other (mentally slow but cooperative and able to express her needs) Speech and Movement: speech and movement normal Mood: congruent mood and other (mentally slow but cooperative and able to express her needs) Affect: normal affect Objective Objective Clinical Data: Abnormal lab results 05/10/18 05/10/18 05/10/18 Range/Units 00:20 06:15 06:15 Sodium 151 H 150 H (136-145) mmol/L Potassium 3.2 L 3.3 L (3.5-5.1) mmol/L Chloride 113 H 113 H (98-107) mmol/L Creatinine 2.02 H 2.12 H (0.55-1.02) mg/dL Glucose 121 H 125 H (70-100) mg/dL Calcium 8.1 L 8.4 L (8.5-10.1) mg/dL Folate > 20.0 H (8.6-20.0) ng/mL Vital Signs Temp 36.2 C L 05/10/18 09:00 Pulse 64 05/10/18 10:00 Resp 17 05/10/18 10:01 BP 163/60 H 05/10/18 10:00 Pulse Ox 97 05/10/18 09:00 Intake & Output 05/09/18 05/09/18 05/10/18 11:59 23:59 11:59 Intake Total 751 / 751 2327.500 / 2327.500 914.584 / 914.584 Output Total 1650 / 1650 1450 / 1450 2525 / 2525 Balance -899 / -899 877.500 / 877.500 -1610.416 / -1610.416 Weight 115.2 kg 118.6 kg Intake: IV 551 / 551 1527.500 / 1527.500 674.584 / 674.584 Oral 200 / 200 800 / 800 240 / 240 Output: Urine 1650 / 1650 1450 / 1450 2525 / 2525 Other: Urine Color Yellow Pale Pale Yellow Yellow Urine Appearance Clear Clear Clear Comment Fox in place draining clear pale yellow urine. Fox in place draining clear pale yellow urine. Fox in place draining clear pale yellow urine. Stool Occult Blood Negative Stool Size Moderate Small Stool Characteristics Soft Soft Laboratory Results WBC 6.31 k/cumm (4.4-10.8) 05/09/18 06:50 RBC 2.89 m/cumm (4.00-5.20) L 05/09/18 06:50 Hgb 9.2 g/dL (12.0-15.5) L 05/09/18 06:50 Hct 30.5 % (36.0-46.0) L 05/09/18 06:50 MCV 105.5 fL (80-95) H 05/09/18 06:50 MCH 31.8 pg (27.0-33.0) 05/09/18 06:50 MCHC 30.2 g/dL (32.0-36.0) L 05/09/18 06:50 RDW 13.5 % (11.7-14.6) 05/09/18 06:50 Plt Count 103 x1000/uL (130-400) L 05/09/18 06:50 MPV 10.8 fL (8.0-11.0) 05/09/18 06:50 Immature Gran % 0.5 05/09/18 06:50 Neutrophils % 79.3 05/09/18 06:50 Lymphocytes % 12.5 05/09/18 06:50 Monocytes % 4.6 05/09/18 06:50 Eosinophils % 2.9 05/09/18 06:50 Basophils % 0.2 05/09/18 06:50 Absolute Neutrophils 5.01 k/cumm (1.2-6.7) 05/09/18 06:50 Absolute Lymphocytes 0.79 k/cumm (1.2-3.4) L 05/09/18 06:50 Absolute Monocytes 0.29 k/cumm (0.11-0.7) 05/09/18 06:50 Absolute Eosinophils 0.18 k/cumm (0.0-0.7) 05/09/18 06:50 Absolute Basophils 0.01 k/cumm (0.0-0.2) 05/09/18 06:50 Differential Comment Rbc morph reviewed 05/09/18 06:50 RBC Morphology See below 05/09/18 06:50 Polychromasia Present 05/09/18 06:50 Hypochromasia 1+ 05/06/18 09:21 Basophilic Stippling Present 05/09/18 06:50 Macrocytosis 1+ 05/09/18 06:50 Sodium 150 mmol/L (136-145) H 05/10/18 06:15 Potassium 3.3 mmol/L (3.5-5.1) L 05/10/18 06:15 Chloride 113 mmol/L (98-107) H 05/10/18 06:15 Carbon Dioxide 30.5 mmol/L (21.0-32.0) 05/10/18 06:15 Anion Gap 6.5 mmol/L (3-11) 05/10/18 06:15 BUN 16 mg/dL (7-18) 05/10/18 06:15 Creatinine 2.12 mg/dL (0.55-1.02) H 05/10/18 06:15 Estimated GFR/1.73 m2 24.10 (mL/min/1.73m2) 05/10/18 06:15 Glucose 125 mg/dL (70-100) H 05/10/18 06:15 Calcium 8.4 mg/dL (8.5-10.1) L 05/10/18 06:15 Magnesium 2.3 mg/dL (1.8-2.4) 05/06/18 09:21 Total Bilirubin 0.2 mg/dL (0.2-1.0) 05/07/18 06:20 Conjugated Bilirubin 0.12 mg/dL (0.00-0.20) 05/06/18 09:21 AST 11 U/L (15-37) L 05/07/18 06:20 ALT 16 U/L (12-78) 05/07/18 06:20 Alkaline Phosphatase 107 U/L (46-116) 05/07/18 06:20 Troponin I 0.06 ng/mL (0.00-0.06) 05/06/18 09:21 NT-Pro-B Natriuret Pep 37506 pg/mL (-299) H 05/06/18 09:21 Total Protein 5.4 g/dL (6.4-8.2) L 05/07/18 06:20 Albumin 3.2 g/dL (3.4-5.0) L 05/07/18 06:20 Vitamin B12 509 pg/mL (193-986) 05/10/18 06:15 Folate > 20.0 ng/mL (8.6-20.0) H 05/10/18 06:15 TSH 1.07 uIU/mL (0.358-3.74) 05/06/18 09:21 Cortisol 18 ug/dL 05/09/18 06:50 Urine Color Yellow (Yellow) 05/06/18 09:05 Urine Clarity Clear 05/06/18 09:05 Urine pH 7.5 (5-8) 05/06/18 09:05 Ur Specific [place] 1.015 (1.005-1.025) 05/06/18 09:05 Urine Protein 100 mg/dL (Negative) H 05/06/18 09:05 Urine Ketones Negative mg/dL (Negative) 05/06/18 09:05 Urine Blood Trace-intact (Negative) H 05/06/18 09:05 Urine Nitrite Negative (Negative) 05/06/18 09:05 Urine Bilirubin Negative (Negative) 05/06/18 09:05 Urine Urobilinogen 0.2 EU/dL (Up TO 0.2) 05/06/18 09:05 Ur Leukocyte Esterase Negative (Negative) 05/06/18 09:05 Urine RBC 0-2 (0-2) 05/06/18 09:05 Urine WBC 0-2 HPF (0-5) 05/06/18 09:05 Ur Epithelial Cells Rare HPF (Negative) 05/06/18 09:05 Urine Crystals Negative HPF (Negative) 05/06/18 09:05 Urine Bacteria Rare HPF (Negative) 05/06/18 09:05 Urine Casts Negative LPF (Negative) 05/06/18 09:05 Urine Mucus Negative (Negative) 05/06/18 09:05 Urine Other Rare renal (Negative) 05/06/18 09:05 Ur Culture Indicated? No 05/06/18 09:05 Ur Collection Duration Cancelled 05/08/18 18:51 Urine Total Volume Cancelled 05/08/18 18:51 Ur 24 Hour Volume Cancelled 05/08/18 18:51 Urine Glucose Negative mg/dL (Negative) 05/06/18 09:05 Ur Free Cortisol 24 Hr Cancelled 05/08/18 18:51 Urine Epinephrine Cancelled 05/08/18 18:51 Urine Norepinephrine Cancelled 05/08/18 18:51 U Metanephrines 24 Hr Cancelled 05/08/18 18:51 U Normetanephrine 24h Cancelled 05/08/18 18:51 U Tot Metanephrine 24h Cancelled 05/08/18 18:51 U Metanephrine Comment Cancelled 05/08/18 18:51 Urine Dopamine Cancelled 05/08/18 18:51 Urine Opiates Screen Negative (Negative) 05/06/18 09:05 Urine Methadone Screen Negative (Negative) 05/06/18 09:05 Ur Barbiturates Screen Negative (Negative) 05/06/18 09:05 Ur Tricyclics Screen Negative (Negative) 05/06/18 09:05 Ur Amphetamines Screen Negative (Negative) 05/06/18 09:05 U Benzodiazepines Scrn Negative (Negative) 05/06/18 09:05 [place] 0.35 mmol/L (0.60-1.20) L 05/07/18 06:20 Urine Cocaine Screen Negative (Negative) 05/06/18 09:05 Ur THC Screen Negative (Negative) 05/06/18 09:05 Ethyl Alcohol < 3.0 mg/dL (<3) 05/06/18 09:21 Reviewed Pertinent PMH: Yes Objective Narrative Objective Narrative: Patient Name: GALE STEPHENS #: [id number]: ICU Ordering Provider: Sam Collazo : ADM IN Primary Care Provider: Mariana Arias Date of Exam: 05/10/18ex: F Admission Date: 05/06/18 : 1960 Age: 58 Exam(s) a RAD:XR tib/fib LT SYMPTOMS/DIAGNOSIS: LEFT LEG PAIN, S/P LEFT TIBIAL PLATEAU FRACTURE LEFT TIB/FIB: Multiple views and no priors. There is a mildly comminuted fracture involving the medial tibial plateau. The fracture appears to be mildly depressed by approximately 3 mm. No other fracture or dislocation is identified. No radiopaque foreign bodies are seen in the soft tissues. IMPRESSION: Medial tibial plateau fracture. Ordered By: Sam Collazo [facility]
[2018-05-10] MEDS: Insulin Aspart 300 UNITS/3 ML PEN SC (11:55)
--- NOTE | 2018-05-10 12:30 | MERGE_ITS ---
*[facility]* *[facility]* [address] [place] [address] Date of study: 05/10/2018 Transthoracic Echocardiography M-mode, complete 2D, complete spectral Doppler, and color Doppler *STUDY CONCLUSIONS* Summary: 1. Left ventricle: The cavity size was normal. Wall thickness was increased in a pattern of severe LVH. There was mild asymmetric hypertrophy of the septum. Systolic function was normal. The estimated ejection fraction was 60-65%. Wall motion was normal; there were no regional wall motion abnormalities. The outflow tract showed a velocity flow profile with a late systolic peak, typical of dynamic obstruction. Peak LVOT gradient at baseline 36mmHg. 2. Aortic root: The aortic root was at upper normal limits. 3. Ascending aorta: The ascending aorta was at upper normal limits. 4. Mitral valve: Valve area by pressure half-time: 2.2cm^2. 5. Left atrium: The atrium was severely dilated. 6. Right ventricle: The cavity size was normal. Wall thickness was at the upper limits of normal. Systolic function was normal. 7. Pulmonary arteries: Pulmonary systolic pressure was at the upper limits of normal. PA peak pressure: 34mm Hg (S). 8. Pericardium, extracardiac: A small pericardial effusion was identified circumferential to the heart. There was no evidence of hemodynamic compromise. *PATIENT PRESENTATION* Height: 152.4cm ((60in) ) S/D Pressure: 186 / 81 Weight: 118.4kg ((260.5lb) ) BSA: 2.32m^2 Test start time: 12:50 PM. Test stop time: 01:40 PM. PERFORMING Unknown PERFORMING [facility] ORDERING Stranathan, Christopher REFERRING Laci Collazo DATA VISUALIZATION DEVELOPER Linda Seferino, RT (R)(CT), RDCS *PROCEDURE DATA* Procedure information: The patient was identified by two identifiers. This study was interpreted by [facility]. Pertinent images and digital data are archived for permanent storage and are available for subsequent review. No prior study was available for comparison. Study status: Routine. Transthoracic echocardiography. M-mode, complete 2D, complete spectral Doppler, and color Doppler. A Transthoracic Echocardiogram was performed. Scanning was performed from the parasternal, apical, subcostal, and suprasternal notch acoustic windows. Image quality was adequate. Study completion: The patient tolerated the procedure well. History: PMH: Evaluate cardiac murmur. *CARDIAC ANATOMY* Left ventricle: The cavity size was normal. Wall thickness was increased in a pattern of severe LVH. There was mild asymmetric hypertrophy of the septum. Systolic function was normal. The estimated ejection fraction was 60-65%. Wall motion was normal; there were no regional wall motion abnormalities. The outflow tract showed a velocity flow profile with a late systolic peak, typical of dynamic obstruction. Peak LVOT gradient at baseline 36mmHg. Aortic valve: Trileaflet; mildly thickened leaflets. Mobility was not restricted. Doppler: Transvalvular velocity was within the normal range. There was no stenosis. There was no significant regurgitation. VTI ratio of LVOT to aortic valve: 0.78. Valve area (VTI): 2.5cm^2. Indexed valve area (VTI): 1.1cm^2/m^2. Peak velocity ratio of LVOT to aortic valve: 0.72. Valve area (Vmax): 2.3cm^2. Indexed valve area (Vmax): 1cm^2/m^2. Mean velocity ratio of LVOT to aortic valve: 0.9. Valve area (Vmean): 2.9cm^2. Indexed valve area (Vmean): 1.3cm^2/m^2. Mean gradient (S): 10.3mm Hg. Peak gradient (S): 20.2mm Hg. Aorta: Aortic root: The aortic root was at upper normal limits. Ascending aorta: The ascending aorta was at upper normal limits. Mitral valve: Structurally normal valve. Mobility was not restricted. Doppler: Transvalvular velocity was within the normal range. There was no evidence for stenosis. There was no significant regurgitation. Valve area by pressure half-time: 2.2cm^2. Indexed valve area by pressure half-time: 1cm^2/m^2. Peak gradient (D): 3mm Hg. Left atrium: The atrium was severely dilated. Right ventricle: The cavity size was normal. Wall thickness was at the upper limits of normal. Systolic function was normal. Pulmonic valve: Doppler: Transvalvular velocity was within the normal range. There was no evidence for stenosis. There was trivial regurgitation. Peak gradient (S): 7.8mm Hg. Tricuspid valve: Structurally normal valve. Doppler: Transvalvular velocity was within the normal range. There was no evidence for stenosis. There was trivial regurgitation. Pulmonary artery: Pulmonary systolic pressure was at the upper limits of normal. Right atrium: The atrium was normal in size. Pericardium: A small pericardial effusion was identified circumferential to the heart. There was no evidence of hemodynamic compromise. Systemic veins: Inferior vena cava: The vessel was patent and normal in size. The respirophasic diameter changes were in the normal range (greater than or equal to 50%), consistent with normal central venous pressure. Baseline ECG: Normal sinus rhythm. Measurements Left ventricle Value Reference LV ID, ED, PLAX 6.0 cm 3.5 - 6.0 LV ID, ES, PLAX 3.1 cm 2.1 - 4.0 LV PW thickness, ED, PLAX 1.6 cm LV end-diastolic volume, 1-p A4C 112 ml LV ejection fraction, 1-p A4C 70 % LV e', lateral 0.08 m/sec LV E/e', lateral 11 LV e', medial 0.063 m/sec LV E/e', medial 14 LV e', average 0.071 m/sec LV E/e', average 12 Ventricular septum Value Reference IVS thickness, ED, PLAX 1.6 cm LVOT Value Reference LVOT ID, A-P 2.0 cm LVOT area 3.2 cm^2 LVOT peak velocity, S 1.62 m/sec LVOT mean velocity, S 1.37 m/sec LVOT VTI, S 32.2 cm LVOT peak gradient, S 10.5 mm Hg LVOT mean gradient, S 7.9 mm Hg Stroke volume (SV), LVOT DP 104 ml Stroke index (SV/bsa), LVOT DP 45 ml/m^2 Aortic valve Value Reference Aortic valve peak velocity, S 2.2 m/sec Aortic valve mean velocity, S 1.52 m/sec Aortic valve VTI, S 41.2 cm Aortic mean gradient, S 10.3 mm Hg Aortic peak gradient, S 20.2 mm Hg VTI ratio, LVOT/AV 0.78 Aortic valve area, VTI 2.5 cm^2 Velocity ratio, peak, LVOT/AV 0.72 Aortic valve area, peak velocity 2.3 cm^2 Velocity ratio, mean, LVOT/AV 0.9 Aortic valve area, mean velocity 2.9 cm^2 Aortic valve area/bsa, mean velocity 1.3 cm^2/m^2 Aorta Value Reference Aortic root ID, ED 3.9 cm Ascending aorta ID, A-P, S 3.9 cm Left atrium Value Reference LA ID, A-P, ES 3.1 cm LA ID/bsa, A-P 1.3 cm/m^2 <=2.2 LA area, ES, A4C (H) 24.6 cm^2 8.8 - 23.4 LA area, ES, A2C 31 cm^2 LA volume/bsa, ES, 1-p A4C 37 ml/m^2 LA volume, ES, 2-p 92 ml LA volume/bsa, ES, 2-p 39 ml/m^2 LA/aortic root ratio 0.78 Mitral valve Value Reference Mitral E-wave peak velocity 0.87 m/sec Mitral A-wave peak velocity 0.89 m/sec Mitral deceleration time (H) 343 ms 150 - 230 Mitral pressure half-time 100 ms Mitral peak gradient, D 3 mm Hg Mitral E/A ratio, peak 0.98 Mitral valve area, PHT, DP 2.2 cm^2 Pulmonary arteries Value Reference PA pressure, S, DP (H) 34 mm Hg <=30 Tricuspid valve Value Reference Tricuspid regurg peak velocity 2.8 m/sec Tricuspid peak RV-RA gradient 31.4 mm Hg Right atrium Value Reference RA area, ES, A4C 17.4 cm^2 8.3 - 19.5 Systemic veins Value Reference Estimated CVP 10 mm Hg Right ventricle Value Reference RV pressure, S, DP (H) 41 mm Hg <=30 Pulmonic valve Value Reference Pulmonic peak gradient, S 7.8 mm Hg Legend: (L) and (H) darrel values outside specified reference range. I have personally reviewed the images and have reviewed and edited the reported findings. Electronically signed by Radha Muñoz 05/11/2018 01:37
--- NOTE | 2018-05-10 12:37 | PDOC.CMPRO ---
- If Service Date Differs Date of service: 05/10/18 Time of Service: 12:37 Care Management Progress Note S/O:CM met with patient in the ICU she is currently having a echo completed and will have a duplex to rule out DVT. Peteran met with MD today and was updated, plan is for her to return to [facility] this [facility] when medically ready. A:Tona is a 58 year old female admitted for pneumonia with a significant medical history. P: Tona continues as an ICU patient today. Blood pressure medication being titrated. She continues to receive IV antibiotics for her pneumonia. She has a wound consult pending. Tona will return to [facility] when medically ready per provider.CM to continue to provide support to patient and care team ongoing discharge planning.
[2018-05-10] MEDS: Potassium Chloride 10 MEQ CAPCR 20 MEQ PO (12:47)
[2018-05-10] MEDS: Enoxaparin 30 MG/0.3 ML SYR SC (13:59)
--- NOTE | 2018-05-10 14:30 | DI.RAD_ITS ---
SYMPTOMS/DIAGNOSIS: LEFT LEG PAIN, S/P LEFT TIBIAL PLATEAU FRACTURE LEFT TIB/FIB: Multiple views and no priors. There is a mildly comminuted fracture involving the medial tibial plateau. The fracture appears to be mildly depressed by approximately 3 mm. No other fracture or dislocation is identified. No radiopaque foreign bodies are seen in the soft tissues. IMPRESSION: Medial tibial plateau fracture.
[2018-05-10 17:59] LABS: Adrenocorticotropic Hormone, P 82 pg/mL
[2018-05-10 18:46] LABS: Anion Gap 7.2 mmol/L (3-11); BUN 17 mg/dL (7-18); CO2 29.8 mmol/L (21.0-32.0); CREATININE 2.25 mg/dL (0.55-1.02); Calcium 8.3 mg/dL (8.5-10.1); Chloride 110 mmol/L (98-107); Glucose 122 mg/dL (70-100); Potassium 3.7 mmol/L (3.5-5.1); Sodium 147 mmol/L (136-145)
[2018-05-10] MEDS: Docusate Sodium 100 MG CAP PO (19:48)
[2018-05-10] MEDS: Potassium Chloride 20 MEQ TABCR PO (19:48)
[2018-05-10] MEDS: Simvastatin 20 MG TAB PO (22:27)
[2018-05-10] MEDS: Melatonin 3 MG TAB 6 MG PO (22:27)
[2018-05-11] VITALS (31 sets, daily range): BP systolic 135–198; BP diastolic 53–102; PULSE 54–78; RESP 14–25; TEMP 37.1–37.2; O2SAT 88–93
[2018-05-11] MEDS: DEXTROSE 5%-WATER 500 ML 100 ML IV ×2 (02:10→07:45)
[2018-05-11 07:18] LABS: Anion Gap 8.5 mmol/L (3-11); BUN 18 mg/dL (7-18); CO2 30.5 mmol/L (21.0-32.0); CREATININE 2.16 mg/dL (0.55-1.02); Calcium 8.2 mg/dL (8.5-10.1); Chloride 108 mmol/L (98-107); Estimated GFR 23.58 (mL/min/1.73m2); Glucose 101 mg/dL (70-100); Potassium 3.7 mmol/L (3.5-5.1); Sodium 147 mmol/L (136-145)
[2018-05-11] MEDS: Potassium Chloride 20 MEQ TABCR PO (08:22)
[2018-05-11] MEDS: Carvedilol 25 MG TAB 50 MG PO ×2 (08:24→19:34)
[2018-05-11] MEDS: Citalopram 20 MG TAB 40 MG PO (08:25)
[2018-05-11] MEDS: Docusate Sodium 100 MG CAP PO (08:25)
[2018-05-11] MEDS: Isosorbide Mononitrate 30 MG TABCR PO (08:25)
[2018-05-11] MEDS: Aspirin 81 MG CHEW PO (08:26)
[2018-05-11] MEDS: Spironolactone 50 MG TAB 100 MG PO (08:26)
[2018-05-11] MEDS: Ferrous Sulfate 325 MG TAB PO ×2 (08:26→19:34)
[2018-05-11] MEDS: risperiDONE 1 MG TAB 2 MG PO (08:27)
[2018-05-11] MEDS: Lisinopril 20 MG TAB 40 MG PO (08:28)
[2018-05-11] MEDS: amLODIPine 10 MG TAB PO (08:28)
[2018-05-11] MEDS: hydrALAZINE 25 MG TAB 100 MG PO ×3 (08:29→19:34)
[2018-05-11] MEDS: Omeprazole 20 MG CAPCR PO (08:34)
[2018-05-11] MEDS: Insulin Aspart 300 UNITS/3 ML PEN SC (08:59)
--- NOTE | 2018-05-11 09:13 | EVALE_ITS ---
Date of service: 05/11/18 Time of Service: 07:10 Speech Therapy Evaluation Note: Referring Provider: Dr. Collazo BACKGROUND: This is a 58-year-old female who was a resident of [facility] and [facility] [place][Note 2] when on 05/06/2018 she was transferred to the ED, and subsequently to the ICU, for a left lower lobe pneumonia, multiorgan dysfunction and electrolyte dysfunction. On 05/10/2018 the patient was noted to cough with p. o. intake of Thin liquids so she was changed to Honey- thick liquids and a swallow consult was ordered. Past medical history is significant for the followin. Developmental delay 2. Bipolar 1 disorder 3. Diabetes type 2 4. Hypertension 5. Chronic renal insufficiency 6. Ischemic heart disease 7. Obstructive sleep apnea 8. Left kidney removal 3 months ago 9. Fracture of left tibia one month ago OBJECTIVE: Nursing reports the followin. Temp 37.1 2. O2 sat 92% on room air 3. Lung sounds showing fine crackles bilaterally in the presence of an antibiotic 4. Patient has not shown any coughing on Honey-thick liquid with the exception of one instance The peak patient is reclined in bed she does not make direct eye contact with me when I greet her verbally she requires repeated requests for eye contact throughout the visit. She shows no spontaneous speech with the exception of one repetitive utterance which is I want to go down meaning that she would like to have the head of her bed put down. She is unable to respond to orientation questions and has significant difficulty responding to basic one-step directions Oral Sensorimotor Exam The patient has a full upper denture and her own dentition of the lower ridge. The full upper denture appears quite stable which may be because the denture has not actually been removed since the time of admission. The patient is partially edentulous bilaterally on the lower ridge. The remaining teeth are in poor condition with at least one of them being broken. She has a buildup of oral mucus in her mouth which nursing is able to remove with suction. Much of this part of the exam is unable to be done due to the patient's lack of response to requests for following specific directions. She shows no lingual deviation in a setting of very limited lingual excursion. Additionally, she shows no response to requests for a volitional cough despite auditory and visual cueing. She does show a response to a request for a throat-clear but does not actually produce a throat-clear and only produces voicing. Speech intelligibility for the limited amount of speech that the patient is heard to produce today is 80%. Vocal quality is within normal limits. With regard to swallowing the following consistencies are assessed: 1. Liquids: a) Thin liquid: The patient shows adequate bolus control and posterior oral transit of 1 teaspoon amounts. No oleksandr signs and symptoms of aspiration or penetration are seen. Oral clearance is 100% and no oral escape is noted. For single-sip amounts the patient shows similar results with the exception of the fact that the swallow is audible. b) Botkins-thick liquid: The patient initially shows an audible swallow for single-sip boluses but then shows no audible quality to her swallows with subsequent single-sips throughout the remainder of the visit. No oleksandr signs and symptoms of aspiration/penetration are noted. c) Honey-thick liquid: Results are the same as for Botkins-thick liquid. 2. Foods a) Puree: The patient shows good bolus control and posterior oral transit. No oleksandr signs and symptoms of aspiration or penetration are seen. Oral clearance is 100% and no oral escape is noted. b) Mechanically Altered: The patient shows good quality mastication, bolus control and posterior oral transit. No oleksandr signs and symptoms of aspiration or penetration are seen. Oral clearance is 100% and no oral escape is noted. c) Dysphagia Advanced: The patient shows decreased quality of mastication as well as decreased oral clearance of this consistency. She requires a liquid wash in order to help with oral clearance but even this does not clear her mouth 100%. The remainder of the bolus is manually removed by me. 3. Pills: The patient is initially observed to be able to take a single large- size whole pill with a liquid wash. This apparently does go down although the patient is noted to do multiple swallows in order to complete pharyngeal clearance. No oleksandr signs and symptoms of aspiration or penetration are seen. The patient is then observed to take whole pills in pur?e. She has an estimated 15+ pills to take this morning. Consequently, it is decided to try multiple whole pills at one time in pur?e. For medium-size pills she is able to tolerate 2 pills at a time and with small-size pills she is able to tolerate 3 pills at a time, all in pur?e. The boluses are interspersed with single sips of nectar-thick liquid to assure oropharyngeal clearance and this appears to work well. INTERPRETATION: The patient shows a moderate oral pharyngeal dysphasia in a setting of developmental delay. RECOMMENDATIONS: 1. Change to: a) Botkins-thick liquid b) Mechanically Altered diet with moistened fine-chopped meats c) whole pills in puree: - large-size pills: one at a time - medium-size pills: 2 at a time - small-size pills: 3 at a time 2. Biotene Antibacterial Mouthwash: 15 mls via oral swab 3. Aided feeding 4. ST to maximize swallow safety. Thank you for referring this patient. Dionisio Hill., CCC-MANAGER SOLUTION
--- NOTE | 2018-05-11 10:09 | PGE_ITS ---
Date of service: 05/11/18 Time of Service: 10:08 Assessment and Plan (1) Healthcare-associated pneumonia: Current visit: Yes Status: Acute Patient is now beginning day #5 of her IV Zosyn. She is completed 4-1/2 full days of IV antibiotics. She remains afebrile. Today I will switch her to oral antibiotics if she remains afebrile on oral antibiotics she can be discharged back to the correction tomorrow and have her follow-up with her paid intern which is scheduled for 11 AM tomorrow. (2) Hypernatremia: Current visit: Yes Status: Acute Patient's hypernatremia is improving since I put her on D5W. Sodium it is now down to 147. I will discontinue her D5W at this point and restrict her fluids to thousand milliliters per day and check her urine and plasma osmolality both now and Again in the morning to see if there is an appropriate rise in her urine osmolality (3) HTN (hypertension): Current visit: Yes Status: Chronic Patient was weaned off the nicardipine drip yesterday. Since addition of spironolactone her bp has come down. BP is in the 126 to 153 systolic and diastolic readings of 70's. (4) Chronic renal insufficiency: Current visit: Yes Status: Acute creatinine remains stable at 2.16. She has solitary kidney as she had a nephrectomy in 02/02/[address] Gandhi at [facility] in [place], [place] for recurrent kidney stones and recurrent pyelonephritis. she has an appointment w/ nephrology tomorrow at 11 a.m. I hope to have most of her studies completed although probably will not have all results back by the time she goes to [facility] tomorrow (5) Diabetes type 2, controlled: Current visit: Yes Status: Chronic glucose has been well controlle while an inpatient (running 107 to 140; today her FBS was 140 ). 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 However, I have kept all of her other psychiatric meds (7) Tibial plateau fracture, left: Current visit: Yes Status: Acute Patient remains in the left knee immobilizer is pretty much nonweightbearing. Because of her increased pain is not controlled by Tylenol and added Tylenol No. 3's to her pain regimen. I considered Ultram but there are multiple drug interactions with her psychiatric medications. (8) Discharge planning issues: Current visit: Yes Status: Acute Patient will return to [facility] once she is medically stable. rig manager will look into transportation issues for [facility] tomorrow Subjective Interval history since last seen: Patient has no new complaints. She has no shortness of breath and no cough. She remains off of any supplemental oxygen and her oxygen saturations been good. She has had no fevers overnight. I am going to switch her from IV antibiotics to oral antibiotics and if she remains afebrile overnight she can be discharged tomorrow morning to follow-up with her paid intern at [facility]. I spoke with her case maker this morning and updated her on the patient's condition. I reviewed her follow-up left tib-fib x-ray and she has a mildly comminuted tibial plateau fracture. I told her case maker that she really means in a knee immobilizer and nonweightbearing. She has a follow-up with Dr. Tsai at [facility] on May 19. She has a follow-up with nephrology clinic tomorrow at 11 AM at [facility]. I will call Dr. Whitley at [facility] today to give him an update. I am trying to wrap up her workup for her secondary causes for hypertension including ruling out hypercortisolism and hyperaldosteronism as well as a workup for diabetes insipidus. Exam Const General: cooperative, comfortable and no acute distress Nutritional Appearance: obese Orientation: alert, awake and oriented to person Limitations: behavioral limitations Chest Chest: normal inspection of the chest and normal palpation of entire chest wall Resp Effort & Inspection: normal respiratory effort and able to speak in complete sentences Auscultation: clear to auscultation bilaterally Cardio Jugular venous pressure: no JVD Palpation: normal PMI Rate: regular rate Rhythm: regular rhythm Heart Sounds: S1 normal, S2 normal and murmur systolic Bruits: no abdominal aortic bruits Pulses: normal peripheral pulses GI Inspection: normal to inspection Palpation: soft and no hepatosplenomegaly Percussion: normal to percussion Auscultation: normal bowel sounds Rectal Exam - female: other Psych Mental Status: other (mentally slow but cooperative and able to express her needs) Speech and Movement: speech and movement normal Mood: congruent mood and other (mentally slow but cooperative and able to express her needs) Affect: normal affect Objective Objective Clinical Data: Abnormal lab results 05/09/18 05/10/18 05/11/18 Range/Units 06:50 18:30 06:40 Sodium 147 H 147 H (136-145) mmol/L Chloride 110 H 108 H (98-107) mmol/L Creatinine 2.25 H 2.16 H (0.55-1.02) mg/dL Glucose 122 H 101 H (70-100) mg/dL Calcium 8.3 L 8.2 L (8.5-10.1) mg/dL ACTH 82 H pg/mL Vital Signs Temp 37.1 C 05/10/18 19:40 Pulse 55 L 05/11/18 06:01 Resp 16 05/11/18 06:01 BP 153/70 H 05/11/18 06:01 Pulse Ox 93 L 05/10/18 22:01 Intake & Output 05/10/18 05/10/18 05/11/18 11:59 23:59 11:59 Intake Total 2204.584 / 2204.584 3113 / 3113 550 / 550 Output Total 2850 / 2850 875 / 875 1750 / 1750 Balance -645.416 / -872.839 2347 / 2238 -1200 / -1200 Weight 118.6 kg 120.4 kg Intake: IV 1724.584 / 3679.823 5288 / 2100 550 / 550 Oral 480 / 480 1013 / 1013 Output: Urine 2850 / 2850 875 / 875 1750 / 1750 Other: Urine Color Pale Pale Pale Yellow Yellow Yellow Urine Appearance Clear Clear Clear Comment Fox in place draining clear pale yellow urine. Fox in place Stool Size Small Small Small Stool Characteristics Soft Soft Brown Laboratory Results WBC 6.31 k/cumm (4.4-10.8) 05/09/18 06:50 RBC 2.89 m/cumm (4.00-5.20) L 05/09/18 06:50 Hgb 9.2 g/dL (12.0-15.5) L 05/09/18 06:50 Hct 30.5 % (36.0-46.0) L 05/09/18 06:50 MCV 105.5 fL (80-95) H 05/09/18 06:50 MCH 31.8 pg (27.0-33.0) 05/09/18 06:50 MCHC 30.2 g/dL (32.0-36.0) L 05/09/18 06:50 RDW 13.5 % (11.7-14.6) 05/09/18 06:50 Plt Count 103 x1000/uL (130-400) L 05/09/18 06:50 MPV 10.8 fL (8.0-11.0) 05/09/18 06:50 Immature Gran % 0.5 05/09/18 06:50 Neutrophils % 79.3 05/09/18 06:50 Lymphocytes % 12.5 05/09/18 06:50 Monocytes % 4.6 05/09/18 06:50 Eosinophils % 2.9 05/09/18 06:50 Basophils % 0.2 05/09/18 06:50 Absolute Neutrophils 5.01 k/cumm (1.2-6.7) 05/09/18 06:50 Absolute Lymphocytes 0.79 k/cumm (1.2-3.4) L 05/09/18 06:50 Absolute Monocytes 0.29 k/cumm (0.11-0.7) 05/09/18 06:50 Absolute Eosinophils 0.18 k/cumm (0.0-0.7) 05/09/18 06:50 Absolute Basophils 0.01 k/cumm (0.0-0.2) 05/09/18 06:50 Differential Comment Rbc morph reviewed 05/09/18 06:50 RBC Morphology See below 05/09/18 06:50 Polychromasia Present 05/09/18 06:50 Hypochromasia 1+ 05/06/18 09:21 Basophilic Stippling Present 05/09/18 06:50 Macrocytosis 1+ 05/09/18 06:50 Sodium 147 mmol/L (136-145) H 05/11/18 06:40 Potassium 3.7 mmol/L (3.5-5.1) 05/11/18 06:40 Chloride 108 mmol/L (98-107) H 05/11/18 06:40 Carbon Dioxide 30.5 mmol/L (21.0-32.0) 05/11/18 06:40 Anion Gap 8.5 mmol/L (3-11) 05/11/18 06:40 BUN 18 mg/dL (7-18) 05/11/18 06:40 Creatinine 2.16 mg/dL (0.55-1.02) H 05/11/18 06:40 Estimated GFR/1.73 m2 23.58 (mL/min/1.73m2) 05/11/18 06:40 Glucose 101 mg/dL (70-100) H 05/11/18 06:40 Calcium 8.2 mg/dL (8.5-10.1) L 05/11/18 06:40 Magnesium 2.0 mg/dL (1.8-2.4) 05/10/18 00:20 Total Bilirubin 0.2 mg/dL (0.2-1.0) 05/07/18 06:20 Conjugated Bilirubin 0.12 mg/dL (0.00-0.20) 05/06/18 09:21 AST 11 U/L (15-37) L 05/07/18 06:20 ALT 16 U/L (12-78) 05/07/18 06:20 Alkaline Phosphatase 107 U/L (46-116) 05/07/18 06:20 Troponin I 0.06 ng/mL (0.00-0.06) 05/06/18 09:21 NT-Pro-B Natriuret Pep 20657 pg/mL (-299) H 05/06/18 09:21 Total Protein 5.4 g/dL (6.4-8.2) L 05/07/18 06:20 Albumin 3.2 g/dL (3.4-5.0) L 05/07/18 06:20 Vitamin B12 509 pg/mL (193-986) 05/10/18 06:15 Folate > 20.0 ng/mL (8.6-20.0) H 05/10/18 06:15 TSH 1.07 uIU/mL (0.358-3.74) 05/06/18 09:21 Cortisol 18 ug/dL 05/09/18 06:50 ACTH 82 pg/mL H 05/09/18 06:50 Urine Color Yellow (Yellow) 05/06/18 09:05 Urine Clarity Clear 05/06/18 09:05 Urine pH 7.5 (5-8) 05/06/18 09:05 Ur Specific [place] 1.015 (1.005-1.025) 05/06/18 09:05 Urine Protein 100 mg/dL (Negative) H 05/06/18 09:05 Urine Ketones Negative mg/dL (Negative) 05/06/18 09:05 Urine Blood Trace-intact (Negative) H 05/06/18 09:05 Urine Nitrite Negative (Negative) 05/06/18 09:05 Urine Bilirubin Negative (Negative) 05/06/18 09:05 Urine Urobilinogen 0.2 EU/dL (Up TO 0.2) 05/06/18 09:05 Ur Leukocyte Esterase Negative (Negative) 05/06/18 09:05 Urine RBC 0-2 (0-2) 05/06/18 09:05 Urine WBC 0-2 HPF (0-5) 05/06/18 09:05 Ur Epithelial Cells Rare HPF (Negative) 05/06/18 09:05 Urine Crystals Negative HPF (Negative) 05/06/18 09:05 Urine Bacteria Rare HPF (Negative) 05/06/18 09:05 Urine Casts Negative LPF (Negative) 05/06/18 09:05 Urine Mucus Negative (Negative) 05/06/18 09:05 Urine Other Rare renal (Negative) 05/06/18 09:05 Ur Culture Indicated? No 05/06/18 09:05 Ur Collection Duration Cancelled 05/08/18 18:51 Urine Total Volume Cancelled 05/08/18 18:51 Ur 24 Hour Volume Cancelled 05/08/18 18:51 Urine Glucose Negative mg/dL (Negative) 05/06/18 09:05 Ur Free Cortisol 24 Hr Cancelled 05/08/18 18:51 Urine Epinephrine Cancelled 05/08/18 18:51 Urine Norepinephrine Cancelled 05/08/18 18:51 U Metanephrines 24 Hr Cancelled 05/08/18 18:51 U Normetanephrine 24h Cancelled 05/08/18 18:51 U Tot Metanephrine 24h Cancelled 05/08/18 18:51 U Metanephrine Comment Cancelled 05/08/18 18:51 Urine Dopamine Cancelled 05/08/18 18:51 Urine Opiates Screen Negative (Negative) 05/06/18 09:05 Urine Methadone Screen Negative (Negative) 05/06/18 09:05 Ur Barbiturates Screen Negative (Negative) 05/06/18 09:05 Ur Tricyclics Screen Negative (Negative) 05/06/18 09:05 Ur Amphetamines Screen Negative (Negative) 05/06/18 09:05 U Benzodiazepines Scrn Negative (Negative) 05/06/18 09:05 Helix 0.35 mmol/L (0.60-1.20) L 05/07/18 06:20 Urine Cocaine Screen Negative (Negative) 05/06/18 09:05 Ur THC Screen Negative (Negative) 05/06/18 09:05 Ethyl Alcohol < 3.0 mg/dL (<3) 05/06/18 09:21
--- NOTE | 2018-05-11 11:35 | PDOC.CMPRO ---
- If Service Date Differs Date of service: 05/11/18 Time of Service: 11:35 Care Management Progress Note S/O: Tona is asleep when CM arrives there is no one present in the room. CM did not awaken patient. Tona was reviewed at interdisciplinary rounds and plan for transition to [facility] this week was reviewed. She will transition to oral antibiotics, and complete the 24 hour urine collection prior to discharge. Guardian was updated by primary nurse related to discharge plan. Guardian is determining if patient will be discharged in time to meet with scheduled nephrology appointment on the . CM to follow up with guardian over the phone to review the plan. A: 58 year old female admitted to [facility] 05/06/18 for LLL Pneumonia, Hypernatremia P: Tona will [facility] when medically ready per provider. Anticipate she will return on Thursday via [facility]. CM faxed updated clinicals to director religious education and provided update over the phone to Danyelle in admissions. Tona remains in ICU as a medical surgical patient. She is having a 24 hour urine collection for hypernatremia. She has been transition to oral antibiotics. CM to update Guardian. CM to continue to provide support to patient and care team ongoing discharge planning.
--- NOTE | 2018-05-11 11:44 | CMPROGNOTE_ITS ---
- If Service Date Differs Date of service: 05/11/18 Time of Service: 11:35 Care Management Progress Note S/O: Tona is asleep when CM arrives there is no one present in the room. CM did not awaken patient. Tona was reviewed at interdisciplinary rounds and plan for transition to [facility] this week was reviewed. She will transition to oral antibiotics, and complete the 24 hour urine collection prior to discharge. Guardian was updated by primary nurse related to discharge plan. Guardian is determining if patient will be discharged in time to meet with scheduled nephrology appointment on the . CM to follow up with guardian over the phone to review the plan. A: 58 year old female admitted to [facility] 05/06/18 for LLL Pneumonia, Hypernatremia P: Tona will return to [facility] when medically ready per provider. Anticipate she will return on Thursday via [facility]. CM faxed updated clinicals to coding director and provided update over the phone to Danyelle in admissions. Tona remains in ICU as a medical surgical patient. She is having a 24 hour urine collection for hypernatremia. She has been transition to oral antibiotics. CM to update Guardian. CM to continue to provide support to patient and care team ongoing discharge planning.
[2018-05-11] MEDS: Amoxicillin 875/Clav. 125 TAB PO (19:33)
[2018-05-11] MEDS: Melatonin 3 MG TAB 6 MG PO (23:04)
[2018-05-11] MEDS: Dexamethasone 4 MG TAB 8 MG PO (23:04)
[2018-05-11] MEDS: Simvastatin 20 MG TAB PO (23:04)
[2018-05-11 23:15] LABS: Osmolality, Urine 117 mos/kg (150-1150)
[2018-05-11 23:15] LABS: Osmolality Serum 295 mos/kg (275-295)
[2018-05-12] VITALS (40 sets, daily range): BP systolic 104–178; BP diastolic 51–78; PULSE 54–84; RESP 7–24; TEMP 37–37.6; O2SAT 81–98
[2018-05-12] MEDS: Omeprazole 20 MG CAPCR PO (07:54)
[2018-05-12] MEDS: Carvedilol 25 MG TAB 50 MG PO ×2 (08:54→20:27)
[2018-05-12] MEDS: amLODIPine 10 MG TAB PO (08:54)
[2018-05-12] MEDS: Citalopram 20 MG TAB 40 MG PO (08:54)
[2018-05-12] MEDS: hydrALAZINE 25 MG TAB 100 MG PO ×3 (08:54→20:27)
[2018-05-12] MEDS: Amoxicillin 875/Clav. 125 TAB PO ×2 (08:55→20:27)
[2018-05-12] MEDS: Spironolactone 50 MG TAB 100 MG PO (08:55)
[2018-05-12] MEDS: Isosorbide Mononitrate 30 MG TABCR PO (08:55)
[2018-05-12] MEDS: Aspirin 81 MG CHEW PO (08:55)
[2018-05-12] MEDS: Lisinopril 20 MG TAB 40 MG PO (08:55)
[2018-05-12] MEDS: risperiDONE 1 MG TAB 2 MG PO (08:55)
[2018-05-12] MEDS: Ferrous Sulfate 325 MG TAB PO ×2 (08:55→20:27)
[2018-05-12] MEDS: Budesonide/Formoterol 160/4.5 6 GM 60 PUFF INH IH (09:11)
--- NOTE | 2018-05-12 09:12 | W.SPEECHPG ---
Date of service: 05/12/18 Time of Service: 08:00 Speech Therpy Note Note: Subjective: The patient is reclined in bed when I enter the room. She does not make immediate direct eye contact and requires multiple cueing to do so. Even then she is not always compliant She makes no responding verbal greeting and is nonverbal during the course of the visit with the exception of a request to be laid back down (versus sitting upright). Objective: Nursing reports the following: - Temp 37.6 - Lung sounds clear to auscultation and diminished bilaterally in the presence of an antibiotic - No report from previous shifts regarding any difficulty with swallowing foods, liquids or pills It is noted that the diet order in the computer continues to read 'Advanced nectar-thick' versus 'Mechanically Altered nectar-thick'. Nursing is able to make the correction. Additionally, it is noted that there is no order for the Biotene Antibacterial Mouthwash as ordered yesterday at the patient's swallowing evaluation visit. Again, nursing will see that this is ordered for the patient in order to be able to apply the mouthwash prior to today's noontime meal. Swallowing skills at today's visit for this patient are noted as follows: 1. [place]-thick liquid: Good bolus control and posterior oral transit (POT). No oleksandr signs/symptoms (s/s) of aspiration or penetration (A/P). Oral clearance is 100% 2. Pur?e food: Good bolus control and linguopalatal bolus compression. POT is WNL. No oleksandr s/s A/P are noted. Oral clearance is 100%. 3. Mechanically Altered food: Good mastication quality, bolus control and POT. No oleksandr s/s of A/P. Oral clearance is 100% with clearing swallows of [place]-thick liquid. 4. Whole pills in puree: Good bolus control and POT. No oleksandr s/s A/P. Oral clearance 100% with use of occasional clearing swallows of [place]-thick liquiid. Nursing shows good use of appropriate feeding strategies during this visit with minimal cueing. Nursing is also instructed in the recommendations made yesterday regarding care of the patient's full upper denture. Assessment: The patient appears to be tolerating her current p.o. consistencies of [place] thick liquid,Mechanically Altered food and whole pills in pur?e as long as she has aided feeding to control bolus size and feeding rate. Plan: Nursing reports that the patient will be d/cd back to [facility] this afternoon. Nursing will make sure that all swallow evaluation recommendations are sent with the patient. Consequently, the patient is d/cd from [facility] at [facility].
[2018-05-12] MEDS: Normal Saline Flush 10 ML SYR IVP (09:18)
--- NOTE | 2018-05-12 09:37 | PNE_ITS ---
Date of service: 05/12/18 Time of Service: 08:00 Speech Therpy Note Note: Subjective: The patient is reclined in bed when I enter the room. She does not make immediate direct eye contact and requires multiple cueing to do so. Even then she is not always compliant She makes no responding verbal greeting and is nonverbal during the course of the visit with the exception of a request to be laid back down (versus sitting upright). Objective: Nursing reports the following: - Temp 37.6 - Lung sounds clear to auscultation and diminished bilaterally in the presence of an antibiotic - No report from previous shifts regarding any difficulty with swallowing foods, liquids or pills It is noted that the diet order in the computer continues to read 'Advanced nectar-thick' versus 'Mechanically Altered nectar-thick'. Nursing is able to make the correction. Additionally, it is noted that there is no order for the Biotene Antibacterial Mouthwash as ordered yesterday at the patient's swallowing evaluation visit. Again, nursing will see that this is ordered for the patient in order to be able to apply the mouthwash prior to today's noontime meal. Swallowing skills at today's visit for this patient are noted as follows: 1. [place]-thick liquid: Good bolus control and posterior oral transit (POT). No oleksandr signs/symptoms (s/s) of aspiration or penetration (A/P). Oral clearance is 100% 2. Pur?e food: Good bolus control and linguopalatal bolus compression. POT is WNL. No oleksandr s/s A/P are noted. Oral clearance is 100%. 3. Mechanically Altered food: Good mastication quality, bolus control and POT. No oleksandr s/s of A/P. Oral clearance is 100% with clearing swallows of [place]- thick liquid. 4. Whole pills in puree: Good bolus control and POT. No oleksandr s/s A/P. Oral clearance 100% with use of occasional clearing swallows of [place]-thick liquiid. Nursing shows good use of appropriate feeding strategies during this visit with minimal cueing. Nursing is also instructed in the recommendations made yesterday regarding care of the patient's full upper denture. Assessment: The patient appears to be tolerating her current p.o. consistencies of [place] thick liquid,Mechanically Altered food and whole pills in pur?e as long as she has aided feeding to control bolus size and feeding rate. Plan: Nursing reports that the patient will be d/cd back to [facility] this afternoon. Nursing will make sure that all swallow evaluation recommendations are sent with the patient. Consequently, the patient is d/cd from [facility] at [facility].
[2018-05-12 10:23] LABS: Anion Gap 7.9 mmol/L (3-11); BUN 21 mg/dL (7-18); CO2 28.1 mmol/L (21.0-32.0); CREATININE 2.63 mg/dL (0.55-1.02); Calcium 8.2 mg/dL (8.5-10.1); Chloride 114 mmol/L (98-107); Estimated GFR 18.79 (mL/min/1.73m2); Glucose 154 mg/dL (70-100); Potassium 4.2 mmol/L (3.5-5.1); Sodium 150 mmol/L (136-145)
--- NOTE | 2018-05-12 11:07 | PDOC.CMDIS ---
- If Service Date Differs Date of service: 05/12/18 Time of Service: 11:07 LACE Index Scoring Tool - Questions: Length of Stay (in days): 4 - 6 Acuity (Admit via E.D.?): Yes Comorbidities: Diabetes w/o Complication, Liver or Renal Disease E.D. Visits: 1 - Answers: Total Score: 13 Risk of Readmission: High Risk Care Management Discharge Reason for Hospitalization: L lower lobe pneumonia, hypernatremia Discharge Plan: Tona will be [facility]. CM requested all future labs be reported to primary care in addition to rails developer at [facility]. Tona will be transported by [facility] coordianted by CM. Primary nurse updated, inesan to complete transfer forms. CM contacted Danyelle at [facility] and confirmed time and date of transfer. Tona is being transfered via ambulance due to imobility she is a complete assist with amber lift. Patient/Family Education Needs: Discharge education, limitations and follow up plan of care communicated to Guardian and to be communitcated to SNF via primary nurse. Report should be called to [phone]. Primary nurse updated. Services Needed at Discharge: [facility] Facility, Transportation - MH Services (Omit if N/A) Current MH Services: [facility]
--- NOTE | 2018-05-12 11:12 | CMDISCH_ITS ---
- If Service Date Differs Date of service: 05/12/18 Time of Service: 11:07 LACE Index Scoring Tool - Questions: Length of Stay (in days): 4 - 6 Acuity (Admit via E.D.?): Yes Comorbidities: Diabetes w/o Complication, Liver or Renal Disease E.D. Visits: 1 - Answers: Total Score: 13 Risk of Readmission: High Risk Care Management Discharge Reason for Hospitalization: L lower lobe pneumonia, hypernatremia Discharge Plan: Tona will be [facility] to [facility] ambulance. CM requested all future labs be reported to primary care in addition to gas fitter at [facility]. Tona will be transported by [facility] coordianted by CM. Primary nurse updated, inesan to complete transfer forms. CM contacted Danyelle at [facility] and confirmed time and date of transfer. Tona is being transfered via ambulance due to imobility she is a complete assist with amber lift. Patient/Family Education Needs: Discharge education, limitations and follow up plan of care communicated to Guardian and to be communitcated to SNF via primary nurse. Report should be called to [phone]. Primary nurse updated. Services Needed at Discharge: [facility] Facility, Transportation - MH Services (Omit if N/A) Current MH Services: [facility]
--- NOTE | 2018-05-12 12:01 | PGE_ITS ---
Date of service: 05/12/18 Time of Service: 12:01 Assessment and Plan (1) Healthcare-associated pneumonia: Current visit: Yes Status: Acute Patient completed 5 full days of Zosyn and is now been switched to Augmentin and remains afebrile.. (2) Hypernatremia: Current visit: Yes Status: Acute Hypernatremia has worsened overnight with fluid restriction therefore I am going to restart D5W to treat her hypernatremia. I discontinued her fluid restriction we have obtained all the labs needed to confirm or refute diabetes insipidus (3) HTN (hypertension): Current visit: Yes Status: Chronic Blood pressures come under markedly improved control since the spironolactone was started. I am awaiting the results of her hyperaldosterone workup. Plasma renin activity level is pending although her serum aldosterone level does not appear to be high. (4) Chronic renal insufficiency: Current visit: Yes Status: Acute Patient has a solitary kidney as she had a previous nephrectomy on January at the [facility] because of recurrent kidney infections and kidney stones. Her BUN and creatinine have risen and therefore necessitates to need IV fluid hydration. For this reason I canceled her transfer to [facility]. (5) Diabetes type 2, controlled: Current visit: Yes Status: Chronic glucose has been well controlle while an inpatient (Running between 106- 136 ). 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 However, I have kept all of her other psychiatric meds. I did call Dr. Young's office and spoke with his nurse to update her on the patient's condition (7) Tibial plateau fracture, left: Current visit: Yes Status: Acute Patient remains in the left knee immobilizer is pretty much nonweightbearing. Tylenol 3 seem to be controlling her pain (8) Discharge planning issues: Current visit: Yes Status: Acute Patient's nephrology appointment was rescheduled. Patient will remain hospitalized until her hypernatremia is corrected. Subjective Interval history since last seen: Patient is more lethargic today. However she is awake and is asking for water. In spite of her being on a fluid restriction overnight last night she had a significant urinary output of 3500 cc yesterday. So far today she is put out 1375. 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 I been proceeding with workup for diabetes insipidus including checking urine and serum osmolality levels both before fluid restriction as well as after fluid restriction. I also checked plasma ADH levels. All these are send out test and are pending at this time. I plan to send her back to the assisted today but her BUN and creatinine william as did her serum sodium. Serum sodium went up to 150 today and her BUN went to 21 and creatinine went up to 2.63. I have ordered her lisinopril and Spironolactone to be held. Yesterday's random serum osmolality and urine osmolality were suggestive of diabetes insipidus. Her serum osmolality is at the upper limits of normal at 295 while her urine osmolality was extremely low at 117. This in spite of the fact that she was still moderately hyponatremic with a serum sodium of 147 yesterday morning. However she was on D5W drip to try to bring her serum sodium down. I stopped that D5W yesterday evening and put her on a fluid restriction overnight and her serum sodium went up to 150 this morning while her BUN and creatinine climbed but I am waiting for the repeat serum osmolality and urine osmolality from this morning. Because her serum sodium and BUN and creatinine have risen I have since discontinued her fluid restriction and put her on D5W to try to bring her serum sodium down overnight. Exam Resp Effort & Inspection: normal respiratory effort Auscultation: diminished lung sounds (Over both bases) bilaterally, no rhonchi and no wheezes Cardio Jugular venous pressure: no JVD Palpation: normal PMI Rate: regular rate Rhythm: regular rhythm Heart Sounds: S1 normal, S2 normal and normal, physiologic split S2 Extrem General: no pedal edema Left lower extremity: lower leg Details: other (Currently in a knee immobilizer) Objective Objective Clinical Data: Abnormal lab results 05/11/18 05/12/18 Range/Units 13:30 09:35 Sodium 150 H (136-145) mmol/L Chloride 114 H (98-107) mmol/L BUN 21 H (7-18) mg/dL Creatinine 2.63 H (0.55-1.02) mg/dL Glucose 154 H (70-100) mg/dL Calcium 8.2 L (8.5-10.1) mg/dL Urine Osmolality 117 L (150-1150) mosm/Kg Vital Signs Temp 37.3 C 05/12/18 11:10 Pulse 68 05/12/18 11:10 Resp 19 05/12/18 10:26 BP 118/59 L 05/12/18 10:26 Pulse Ox 93 L 05/12/18 11:10 Intake & Output 05/11/18 05/12/18 05/12/18 23:59 11:59 23:59 Intake Total 677 / 677 230 / 230 Output Total 1800 / 1800 1050 / 1050 Balance -1123 / -1123 -820 / -820 Weight 117.86 kg Intake: IV 50 / 50 50 / 50 Oral 627 / 627 180 / 180 Output: Urine 1800 / 1800 1050 / 1050 Other: Urine Color Pale Pale Yellow Yellow Urine Appearance Clear Clear Comment Fox in place Stool Occult Blood Negative Stool Size Moderate Stool Characteristics Soft Formed Laboratory Results WBC 6.31 k/cumm (4.4-10.8) 05/09/18 06:50 RBC 2.89 m/cumm (4.00-5.20) L 05/09/18 06:50 Hgb 9.2 g/dL (12.0-15.5) L 05/09/18 06:50 Hct 30.5 % (36.0-46.0) L 05/09/18 06:50 MCV 105.5 fL (80-95) H 05/09/18 06:50 MCH 31.8 pg (27.0-33.0) 05/09/18 06:50 MCHC 30.2 g/dL (32.0-36.0) L 05/09/18 06:50 RDW 13.5 % (11.7-14.6) 05/09/18 06:50 Plt Count 103 x1000/uL (130-400) L 05/09/18 06:50 MPV 10.8 fL (8.0-11.0) 05/09/18 06:50 Immature Gran % 0.5 05/09/18 06:50 Neutrophils % 79.3 05/09/18 06:50 Lymphocytes % 12.5 05/09/18 06:50 Monocytes % 4.6 05/09/18 06:50 Eosinophils % 2.9 05/09/18 06:50 Basophils % 0.2 05/09/18 06:50 Absolute Neutrophils 5.01 k/cumm (1.2-6.7) 05/09/18 06:50 Absolute Lymphocytes 0.79 k/cumm (1.2-3.4) L 05/09/18 06:50 Absolute Monocytes 0.29 k/cumm (0.11-0.7) 05/09/18 06:50 Absolute Eosinophils 0.18 k/cumm (0.0-0.7) 05/09/18 06:50 Absolute Basophils 0.01 k/cumm (0.0-0.2) 05/09/18 06:50 Differential Comment Rbc morph reviewed 05/09/18 06:50 RBC Morphology See below 05/09/18 06:50 Polychromasia Present 05/09/18 06:50 Hypochromasia 1+ 05/06/18 09:21 Basophilic Stippling Present 05/09/18 06:50 Macrocytosis 1+ 05/09/18 06:50 Sodium 150 mmol/L (136-145) H 05/12/18 09:35 Potassium 4.2 mmol/L (3.5-5.1) 05/12/18 09:35 Chloride 114 mmol/L (98-107) H 05/12/18 09:35 Carbon Dioxide 28.1 mmol/L (21.0-32.0) 05/12/18 09:35 Anion Gap 7.9 mmol/L (3-11) 05/12/18 09:35 BUN 21 mg/dL (7-18) H 05/12/18 09:35 Creatinine 2.63 mg/dL (0.55-1.02) H 05/12/18 09:35 Estimated GFR/1.73 m2 18.79 (mL/min/1.73m2) 05/12/18 09:35 Glucose 154 mg/dL (70-100) H 05/12/18 09:35 Serum Osmolality 295 mOsm/kg (275-295) 05/11/18 06:40 Calcium 8.2 mg/dL (8.5-10.1) L 05/12/18 09:35 Magnesium 2.0 mg/dL (1.8-2.4) 05/10/18 00:20 Total Bilirubin 0.2 mg/dL (0.2-1.0) 05/07/18 06:20 Conjugated Bilirubin 0.12 mg/dL (0.00-0.20) 05/06/18 09:21 AST 11 U/L (15-37) L 05/07/18 06:20 ALT 16 U/L (12-78) 05/07/18 06:20 Alkaline Phosphatase 107 U/L (46-116) 05/07/18 06:20 Troponin I 0.06 ng/mL (0.00-0.06) 05/06/18 09:21 NT-Pro-B Natriuret Pep 25656 pg/mL (-299) H 05/06/18 09:21 Total Protein 5.4 g/dL (6.4-8.2) L 05/07/18 06:20 Albumin 3.2 g/dL (3.4-5.0) L 05/07/18 06:20 Aldosterone 12 ng/dL (<=21) 05/09/18 06:50 Vitamin B12 509 pg/mL (193-986) 05/10/18 06:15 Folate > 20.0 ng/mL (8.6-20.0) H 05/10/18 06:15 TSH 1.07 uIU/mL (0.358-3.74) 05/06/18 09:21 Cortisol 18 ug/dL 05/09/18 06:50 ACTH 82 pg/mL H 05/09/18 06:50 Urine Color Yellow (Yellow) 05/06/18 09:05 Urine Clarity Clear 05/06/18 09:05 Urine pH 7.5 (5-8) 05/06/18 09:05 Ur Specific [place] 1.015 (1.005-1.025) 05/06/18 09:05 Urine Protein 100 mg/dL (Negative) H 05/06/18 09:05 Urine Ketones Negative mg/dL (Negative) 05/06/18 09:05 Urine Blood Trace-intact (Negative) H 05/06/18 09:05 Urine Nitrite Negative (Negative) 05/06/18 09:05 Urine Bilirubin Negative (Negative) 05/06/18 09:05 Urine Urobilinogen 0.2 EU/dL (Up TO 0.2) 05/06/18 09:05 Ur Leukocyte Esterase Negative (Negative) 05/06/18 09:05 Urine RBC 0-2 (0-2) 05/06/18 09:05 Urine WBC 0-2 HPF (0-5) 05/06/18 09:05 Ur Epithelial Cells Rare HPF (Negative) 05/06/18 09:05 Urine Crystals Negative HPF (Negative) 05/06/18 09:05 Urine Bacteria Rare HPF (Negative) 05/06/18 09:05 Urine Casts Negative LPF (Negative) 05/06/18 09:05 Urine Mucus Negative (Negative) 05/06/18 09:05 Urine Other Rare renal (Negative) 05/06/18 09:05 Ur Culture Indicated? No 05/06/18 09:05 Urine Osmolality 117 mosm/Kg (150-1150) L 05/11/18 13:30 Ur Collection Duration Cancelled 05/08/18 18:51 Urine Total Volume Cancelled 05/08/18 18:51 Ur 24 Hour Volume Cancelled 05/08/18 18:51 Urine Glucose Negative mg/dL (Negative) 05/06/18 09:05 Ur Free Cortisol 24 Hr Cancelled 05/08/18 18:51 Urine Epinephrine Cancelled 05/08/18 18:51 Urine Norepinephrine Cancelled 05/08/18 18:51 U Metanephrines 24 Hr Cancelled 05/08/18 18:51 U Normetanephrine 24h Cancelled 05/08/18 18:51 U Tot Metanephrine 24h Cancelled 05/08/18 18:51 U Metanephrine Comment Cancelled 05/08/18 18:51 Urine Dopamine Cancelled 05/08/18 18:51 Urine Opiates Screen Negative (Negative) 05/06/18 09:05 Urine Methadone Screen Negative (Negative) 05/06/18 09:05 Ur Barbiturates Screen Negative (Negative) 05/06/18 09:05 Ur Tricyclics Screen Negative (Negative) 05/06/18 09:05 Ur Amphetamines Screen Negative (Negative) 05/06/18 09:05 U Benzodiazepines Scrn Negative (Negative) 05/06/18 09:05 [place] 0.35 mmol/L (0.60-1.20) L 05/07/18 06:20 Urine Cocaine Screen Negative (Negative) 05/06/18 09:05 Ur THC Screen Negative (Negative) 05/06/18 09:05 Ethyl Alcohol < 3.0 mg/dL (<3) 05/06/18 09:21
[2018-05-12 12:03] LABS: Renin Activity, Plasma <0.6 ng/mL/h
--- NOTE | 2018-05-12 15:58 | WOUNDCARE ---
05/12/18 1030- Pt not responsive to questions verbally when approached for history. Unable to acertain good history of wound. Pt has 1.7 x 1.3 x 0.1 Stage 3 coccyx pressure ulcer. Wound bed is 75 % yellow firmly adherent slough, maceration present at right border of wound. Recommend cleanse with anasept and apply foam border dressing, change every other day and PRN. Reposition off wound as able. Allergies Allergy/AdvReac Type Severity Reaction Status Date / Time pollen extracts Allergy Unknown Unverified 05/06/18 09:12 Sulfa (Sulfonamide Allergy Unknown Unverified 05/06/18 09:12 Antibiotics) sulfamethoxazole Allergy Unknown Unverified 05/06/18 09:41 [From Bactrim] trimethoprim [From Bactrim] Allergy Unknown Unverified 05/06/18 09:41 All Active Problems (Last Reviewed 05/06/18 @ 08:12 by Alexys Valdivia MD) Hypernatremia (Acute) Healthcare-associated pneumonia (Acute) HTN (hypertension) (Chronic) Chronic renal insufficiency (Acute) Diabetes type 2, controlled (Chronic) Bipolar 1 disorder, depressed, severe (Chronic) Tibial plateau fracture, left (Acute ~03/2018) MIGUEL [employer] (obstructive sleep apnea) (Chronic) Ischemic heart disease (Chronic) Discharge planning issues (Acute) Mental retardation (Chronic) Anemia (Chronic) Obesity (Chronic) HLD (hyperlipidemia) (Chronic) Status post nephrectomy (Chronic)
[2018-05-12 17:19] LABS: Anion Gap 8.1 mmol/L (3-11); BUN 23 mg/dL (7-18); CO2 28.9 mmol/L (21.0-32.0); CREATININE 2.63 mg/dL (0.55-1.02); Calcium 8.4 mg/dL (8.5-10.1); Chloride 114 mmol/L (98-107); Estimated GFR 18.79 (mL/min/1.73m2); Glucose 96 mg/dL (70-100); Sodium 151 mmol/L (136-145)
[2018-05-12] MEDS: DEXTROSE 5%-WATER 1,000 ML 110 ML IV (20:30)
[2018-05-12 20:41] LABS: BUN 26 mg/dL (7-18); CREATININE 2.67 mg/dL (0.55-1.02); Calcium 8.4 mg/dL (8.5-10.1); Chloride 114 mmol/L (98-107); Estimated GFR 18.47 (mL/min/1.73m2); Glucose 109 mg/dL (70-100); Potassium 4.5 mmol/L (3.5-5.1); Sodium 151 mmol/L (136-145)
[2018-05-12] MEDS: Simvastatin 20 MG TAB PO (22:21)
[2018-05-12] MEDS: Melatonin 3 MG TAB 6 MG PO (22:21)
[2018-05-13] VITALS (39 sets, daily range): BP systolic 89–158; BP diastolic 39–81; PULSE 39–87; RESP 11–18; TEMP 36.3–37.4; O2SAT 82–100
[2018-05-13] MEDS: Enoxaparin 30 MG/0.3 ML SYR SC (06:23)
[2018-05-13 07:51] LABS: Anion Gap 6.4 mmol/L (3-11); BUN 24 mg/dL (7-18); CO2 29.6 mmol/L (21.0-32.0); CREATININE 2.53 mg/dL (0.55-1.02); Calcium 8.1 mg/dL (8.5-10.1); Chloride 112 mmol/L (98-107); Estimated GFR 19.65 (mL/min/1.73m2); Glucose 122 mg/dL (70-100); Sodium 148 mmol/L (136-145)
[2018-05-13] MEDS: Omeprazole 20 MG CAPCR PO (07:56)
[2018-05-13] MEDS: Normal Saline Flush 10 ML SYR IVP (07:58)
[2018-05-13 08:43] LABS: Osmolality, Urine 181 mos/kg (150-1150)
[2018-05-13 08:43] LABS: Osmolality Serum 308 mos/kg (275-295); Osmolality, Urine 354 mos/kg (150-1150)
[2018-05-13 08:43] LABS: Osmolality Serum 310 mos/kg (275-295)
[2018-05-13] MEDS: Aspirin 81 MG CHEW PO (09:25)
[2018-05-13] MEDS: hydrALAZINE 25 MG TAB 100 MG PO (09:25)
[2018-05-13] MEDS: Docusate Sodium 100 MG CAP PO (09:25)
[2018-05-13] MEDS: Amoxicillin 875/Clav. 125 TAB PO ×2 (09:25→20:52)
[2018-05-13] MEDS: Ferrous Sulfate 325 MG TAB PO ×2 (09:25→20:53)
[2018-05-13] MEDS: Citalopram 20 MG TAB 40 MG PO (09:25)
[2018-05-13] MEDS: Isosorbide Mononitrate 30 MG TABCR PO (09:26)
[2018-05-13] MEDS: amLODIPine 10 MG TAB PO (09:26)
[2018-05-13] MEDS: Budesonide/Formoterol 160/4.5 6 GM 60 PUFF INH IH (09:45)
[2018-05-13] MEDS: risperiDONE 1 MG TAB 2 MG PO (09:57)
[2018-05-13 10:43] LABS: Abs Immature Grans 0.03 k/cumm (0.0-0.09); Absolute Basophil Count 0.03 k/cumm (0.0-0.2); Absolute Eosinophil Count 0.22 k/cumm (0.0-0.7); Absolute Lymphocyte Count 1.09 k/cumm (1.2-3.4); Absolute Monocyte Count 0.44 k/cumm (0.11-0.7); Absolute Neutrophil Count 6.28 k/cumm (1.2-6.7); Basophils % 0.4; Eosinophils % 2.7; HCT 30.4 % (36.0-46.0); HGB 8.9 g/dL (12.0-15.5); Immature Grans % 0.4; Lymphocytes % 13.5; Mean Corp. HGB Concentration 29.3 g/dL (32.0-36.0); Mean Corpuscular Hemoglobin 31.9 pg (27.0-33.0); Mean Platelet Volume 12.3 fL (8.0-11.0); Monocytes % 5.4; Neutrophils % 77.6; RBC 2.79 m/cumm (4.00-5.20); RBC Distribution Width 13.9 % (11.7-14.6); White Blood Cell Count 8.09 k/cumm (4.4-10.8)
[2018-05-13 10:54] LABS: Platelet Count 91 x1000/uL (130-400)
--- NOTE | 2018-05-13 11:19 | W.PM.PROGNOT ---
Date of service: 05/13/18 Time of Service: 11:19 Assessment and Plan (1) Healthcare-associated pneumonia: Current visit: Yes Status: Acute Patient completed 5 full days of Zosyn. She is now on her second day of oral Augmentin. Unfortunately she is now requiring supplemental oxygen to maintain her oxygen saturation at 92-93%. I am going to check a chest x-ray to see if she has any pulmonary edema or worsening infiltrates. Clinically she was improving on the Zosyn and I felt that she was ready to transition over to oral antibiotics. Her blood cultures were no growth from admission. We have never been able to get a sputum culture.. (2) Hypernatremia: Current visit: Yes Status: Acute Her serum sodium is coming down with D5W IV fluids running at 110 mL an hour. I will recheck her BMP later this afternoon and again in the morning. Our goal is to bring down her serum sodium gradually over the next 24 hours. I am starting her on scheduled doses of DDAVP at 10 mcg intranasal twice a day. Hopefully this will help with her diabetes insipidus (3) HTN (hypertension): Current visit: Yes Status: Chronic Blood pressures come under markedly improved control since the spironolactone was started. I will resume her spironolactone as soon as her renal function improves enough to tolerate this. We may build to start weaning back some of her other antihypertensive medications. I would start with the hydralazine. Because her LVH would like to leave carvedilol onboard although I did reduce the dose today to 25 mg twice a day because of her bradycardia. (4) Chronic renal insufficiency: Current visit: Yes Status: Acute Patient has a solitary kidney as she had a previous nephrectomy on February 02, 2018 at the [facility] because of recurrent kidney infections and kidney stones. Her BUN and creatinine have risen and therefore necessitates to need IV fluid hydration. I will continue to monitor serial BMPs and adjust her IV fluids. She is maintaining a good urine output. In fact consistent with her diabetes insipidus she has had high urine outputs in spite of the fact that she has had a high serum sodium. Since starting the DDAVP her urine outputs have decreased somewhat. (5) Diabetes type 2, controlled: Current visit: Yes Status: Chronic glucose has been well controlle while an inpatient (Running between 106-139 ). 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 However, I have kept all of her other psychiatric meds. I did call Dr. Young's office Yesterdayand spoke with his nurse to update her on the patient's condition (7) Tibial plateau fracture, left: Current visit: Yes Status: Acute I discussed her case with Dr. Ed Park, orthopedic surgeon, who saw the patient and reviewed her x-rays. He agrees with current management with nonweightbearing status and continued use of the left knee immobilizer. He reviewed proper application of the knee immobilizer with her nurses.Continue use of Tylenol 3 for pain control. (8) Anemia: Current visit: Yes Status: Chronic Probably anemia of chronic disease. Nevertheless I will check B12, folate levels, reticulocyte count, LDH, and iron studies. If she is found to be iron deficient we will start her on supplementation. Clinically there is been no evidence of acute GI bleeding. She is on daily PPI including omeprazole 20 mg once a day. She is also aspirin 81 mg daily. (9) DVT prophylaxis: Current visit: Yes Status: Acute Because of her thrombocytopenia and her enoxaparin has been placed on home. I am to put her on apixaban prophylactically since she is going to be nonmobile for several weeks while her tibial plateau fracture heals. She is at high risk for DVT and/or PE. With her multiple psychiatric medications as well as her multiple blood pressure medications I think one of the the direct oral anticoagulant drugs would be easier to manage than warfarin. (10) Discharge planning issues: Current visit: Yes Status: Acute Hypernatremia resolves and was sure that her pneumonia is stable enough that she can finish outpatient oral antibiotics. Her nephrology appointment will be rescheduled. Subjective Interval history since last seen: As to how she is feeling states not so good. When asked what is hurting or bothering her she says her left leg.I checked an x-ray of her left tib-fib 2 days ago and it shows left medial plateau fracture that is depressed by 3 mm and mildly comminuted. She has remained in the left knee immobilizer and has been nonweightbearing since she was admitted to [facility]. I discussed her case with Dr. Ed Park, orthopedic surgeon who said he would review her film but agrees with current management of non-mobilization and stabilization with the knee immobilizer and nonweightbearing status. With respect to her blood pressures have come under much better control since she was started on spironolactone. Unfortunately because of her rising BUN and creatinine yesterday I had to put her spironolactone on hold although she did get a dose yesterday. She is on multiple antihypertensives including hydralazine, amlodipine, carvedilol, lisinopril. Currently only lisinopril and spironolactone are on hold. Because of mild bradycardia and soft blood pressures this morning I have decrease her carvedilol dose down to 25 mg twice daily. Her recent echocardiogram shows severe LVH with mild asymmetric septal hypertrophy but normal left ventricular ejection fraction 60-65% with no wall motion abnormalities. Her peak left ventricular outflow tract gradient is 36. Her aortic root and ascending aorta are at the upper limits of normal. She has severe left atrial enlargement. She has no significant aortic valve disease or mitral valve disease. Right ventricular size is upper limits of normal with normal RV systolic function. And she has a small pericardial effusion. 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 On May 11 when I checked a morning plasma osmolality he was at the upper limits of normal at 295 while her urine osmolality was low at 117 and this is while she was hypernatremic. After overnight fluid restriction from May 11 - May 12 her serum sodium william higher at 150 and her BUN and creatinine william to 21 and 2.63 respectively. Her plasma osmolality went up to 310 and her urine osmolality only william to 181. However after being given 2 mcg of DDAVP subcutaneously her repeat plasma osmolality 2 hours later was 308 and her urine osmolality william to 354 suggesting that she is at least partially responsive to DDAVP. Based on this I feel that she has diabetes insipidus secondary to her lithium and she should remain off her lithium. Furthermore I am going to start her on regular doses of DDAVP 10 mcg intranasal twice a day and after week titrate that up to 20 mcg twice a day if we do not get an adequate response. With respect to her hypertension and hypokalemia I performed a workup for hypercortisolism and hyperaldosteronism. Her studies are equivocal for hypercortisolism. After being given a 1 mg dexamethasone suppression test her overnight cortisol level was 18. When she was given 8 mg dexamethasone suppression test her overnight fasting cortisol level was 3. 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 With respect to workup for hyperaldosteronism her studies or more equivocal. Her aldosterone level was 12 which was considered within the normal level however her plasma renal activity level was less than 0.6 giving an aldosterone to PRA ratio of 20 which is suspicious for hyperaldosteronism. Because of her renal insufficiency and hypernatremia she is not a candidate for confirmatory testing with salt loading. Since she has responded with spironolactone with improved blood pressures I am going to keep her on her spironolactone once her BUN and creatinine have come down to baseline. Exam Const General: cooperative, comfortable, no acute distress, cushingoid and ill appearing chronically Nutritional Appearance: obese Orientation: alert, awake and oriented to person Limitations: behavioral limitations Resp Effort & Inspection: normal respiratory effort and able to speak in complete sentences Auscultation: rales (Diffuse) bilaterally Cardio Jugular venous pressure: no JVD Rate: regular rate Rhythm: regular rhythm Heart Sounds: S1 normal, S2 normal, normal, physiologic split S2, no gallops, no murmurs and no rubs Bruits: no abdominal aortic bruits Pulses: normal peripheral pulses GI Inspection: normal to inspection Palpation: soft and no hepatosplenomegaly Auscultation: normal bowel sounds Extrem Right lower extremity: normal capillary refill; no edema Left lower extremity: normal capillary refill; no edema Objective Objective Clinical Data: Abnormal lab results 05/12/18 05/12/18 05/12/18 Range/Units 09:35 16:15 16:15 RBC (4.00-5.20) m/cumm Hgb (12.0-15.5) g/dL Hct (36.0-46.0) % MCV (80-95) fL MCHC (32.0-36.0) g/dL Plt Count (130-400) x1000/uL MPV (8.0-11.0) fL Absolute Lymphocytes (1.2-3.4) k/cumm Sodium 151 H (136-145) mmol/L Chloride 114 H (98-107) mmol/L Anion Gap (3-11) mmol/L BUN 23 H (7-18) mg/dL Creatinine 2.63 H (0.55-1.02) mg/dL Glucose (70-100) mg/dL Serum Osmolality 310 H 308 H (275-295) mOsm/kg Calcium 8.4 L (8.5-10.1) mg/dL 05/12/18 05/13/18 05/13/18 Range/Units 20:25 06:35 07:30 RBC 2.79 L (4.00-5.20) m/cumm Hgb 8.9 L (12.0-15.5) g/dL Hct 30.4 L (36.0-46.0) % MCV 109.0 H (80-95) fL MCHC 29.3 L (32.0-36.0) g/dL Plt Count 91 L (130-400) x1000/uL MPV 12.3 H (8.0-11.0) fL Absolute Lymphocytes 1.09 L (1.2-3.4) k/cumm Sodium 151 H 148 H (136-145) mmol/L Chloride 114 H 112 H (98-107) mmol/L Anion Gap 12.0 H (3-11) mmol/L BUN 26 H 24 H (7-18) mg/dL Creatinine 2.67 H 2.53 H (0.55-1.02) mg/dL Glucose 109 H 122 H (70-100) mg/dL Serum Osmolality (275-295) mOsm/kg Calcium 8.4 L 8.1 L (8.5-10.1) mg/dL Vital Signs Temp 36.3 C L 05/13/18 07:38 Pulse 57 L 05/13/18 06:00 Resp 12 05/13/18 06:00 BP 127/52 L 05/13/18 06:00 Pulse Ox 92 L 05/13/18 06:00 Intake & Output 05/12/18 05/12/18 05/13/18 11:59 23:59 11:59 Intake Total 230 / 230 450 / 450 1200 / 1200 Output Total 1050 / 1050 325 / 325 450 / 450 Balance -820 / -820 125 / 125 750 / 750 Weight 117.86 kg 117.86 kg 120.3 kg Intake: IV 50 / 50 1000 / 1000 Oral 180 / 180 450 / 450 200 / 200 Output: Urine 1050 / 1050 325 / 325 450 / 450 Other: Urine Color Pale Pale Light Princess Yellow Yellow Urine Appearance Clear Clear Clear Stool Size Moderate Moderate Stool Characteristics Soft Soft Brown Brown Black Black Laboratory Results WBC 8.09 k/cumm (4.4-10.8) 05/13/18 06:35 RBC 2.79 m/cumm (4.00-5.20) L 05/13/18 06:35 Hgb 8.9 g/dL (12.0-15.5) L 05/13/18 06:35 Hct 30.4 % (36.0-46.0) L 05/13/18 06:35 MCV 109.0 fL (80-95) H 05/13/18 06:35 MCH 31.9 pg (27.0-33.0) 05/13/18 06:35 MCHC 29.3 g/dL (32.0-36.0) L 05/13/18 06:35 RDW 13.9 % (11.7-14.6) 05/13/18 06:35 Plt Count 91 x1000/uL (130-400) L 05/13/18 06:35 MPV 12.3 fL (8.0-11.0) H 05/13/18 06:35 Immature Gran % 0.4 05/13/18 06:35 Neutrophils % 77.6 05/13/18 06:35 Lymphocytes % 13.5 05/13/18 06:35 Monocytes % 5.4 05/13/18 06:35 Eosinophils % 2.7 05/13/18 06:35 Basophils % 0.4 05/13/18 06:35 Absolute Neutrophils 6.28 k/cumm (1.2-6.7) 05/13/18 06:35 Absolute Lymphocytes 1.09 k/cumm (1.2-3.4) L 05/13/18 06:35 Absolute Monocytes 0.44 k/cumm (0.11-0.7) 05/13/18 06:35 Absolute Eosinophils 0.22 k/cumm (0.0-0.7) 05/13/18 06:35 Absolute Basophils 0.03 k/cumm (0.0-0.2) 05/13/18 06:35 Differential Comment Rbc morph reviewed 05/09/18 06:50 RBC Morphology See below 05/09/18 06:50 Polychromasia Present 05/09/18 06:50 Hypochromasia 1+ 05/06/18 09:21 Basophilic Stippling Present 05/09/18 06:50 Macrocytosis 1+ 05/09/18 06:50 Sodium 148 mmol/L (136-145) H 05/13/18 07:30 Potassium 4.0 mmol/L (3.5-5.1) 05/13/18 07:30 Chloride 112 mmol/L (98-107) H 05/13/18 07:30 Carbon Dioxide 29.6 mmol/L (21.0-32.0) 05/13/18 07:30 Anion Gap 6.4 mmol/L (3-11) 05/13/18 07:30 BUN 24 mg/dL (7-18) H 05/13/18 07:30 Creatinine 2.53 mg/dL (0.55-1.02) H 05/13/18 07:30 Estimated GFR/1.73 m2 19.65 (mL/min/1.73m2) 05/13/18 07:30 Glucose 122 mg/dL (70-100) H 05/13/18 07:30 Serum Osmolality 308 mOsm/kg (275-295) H 05/12/18 16:15 Calcium 8.1 mg/dL (8.5-10.1) L 05/13/18 07:30 Magnesium 2.0 mg/dL (1.8-2.4) 05/10/18 00:20 Total Bilirubin 0.2 mg/dL (0.2-1.0) 05/07/18 06:20 Conjugated Bilirubin 0.12 mg/dL (0.00-0.20) 05/06/18 09:21 AST 11 U/L (15-37) L 05/07/18 06:20 ALT 16 U/L (12-78) 05/07/18 06:20 Alkaline Phosphatase 107 U/L (46-116) 05/07/18 06:20 Troponin I 0.06 ng/mL (0.00-0.06) 05/06/18 09:21 NT-Pro-B Natriuret Pep 36349 pg/mL (-299) H 05/06/18 09:21 Total Protein 5.4 g/dL (6.4-8.2) L 05/07/18 06:20 Albumin 3.2 g/dL (3.4-5.0) L 05/07/18 06:20 Renin Activity <0.6 ng/mL/h 05/09/18 06:50 Aldosterone 12 ng/dL (<=21) 05/09/18 06:50 Vitamin B12 509 pg/mL (193-986) 05/10/18 06:15 Folate > 20.0 ng/mL (8.6-20.0) H 05/10/18 06:15 TSH 1.07 uIU/mL (0.358-3.74) 05/06/18 09:21 Cortisol 3 ug/dL 05/12/18 09:35 ACTH 82 pg/mL H 05/09/18 06:50 Urine Color Yellow (Yellow) 05/06/18 09:05 Urine Clarity Clear 05/06/18 09:05 Urine pH 7.5 (5-8) 05/06/18 09:05 Ur Specific [place] 1.015 (1.005-1.025) 05/06/18 09:05 Urine Protein 100 mg/dL (Negative) H 05/06/18 09:05 Urine Ketones Negative mg/dL (Negative) 05/06/18 09:05 Urine Blood Trace-intact (Negative) H 05/06/18 09:05 Urine Nitrite Negative (Negative) 05/06/18 09:05 Urine Bilirubin Negative (Negative) 05/06/18 09:05 Urine Urobilinogen 0.2 EU/dL (Up TO 0.2) 05/06/18 09:05 Ur Leukocyte Esterase Negative (Negative) 05/06/18 09:05 Urine RBC 0-2 (0-2) 05/06/18 09:05 Urine WBC 0-2 HPF (0-5) 05/06/18 09:05 Ur Epithelial Cells Rare HPF (Negative) 05/06/18 09:05 Urine Crystals Negative HPF (Negative) 05/06/18 09:05 Urine Bacteria Rare HPF (Negative) 05/06/18 09:05 Urine Casts Negative LPF (Negative) 05/06/18 09:05 Urine Mucus Negative (Negative) 05/06/18 09:05 Urine Other Rare renal (Negative) 05/06/18 09:05 Ur Culture Indicated? No 05/06/18 09:05 Urine Osmolality 354 mosm/Kg (150-1150) 05/12/18 16:15 Ur Collection Duration Cancelled 05/08/18 18:51 Urine Total Volume Cancelled 05/08/18 18:51 Ur 24 Hour Volume Cancelled 05/08/18 18:51 Urine Glucose Negative mg/dL (Negative) 05/06/18 09:05 Ur Free Cortisol 24 Hr Cancelled 05/08/18 18:51 Urine Epinephrine Cancelled 05/08/18 18:51 Urine Norepinephrine Cancelled 05/08/18 18:51 U Metanephrines 24 Hr Cancelled 05/08/18 18:51 U Normetanephrine 24h Cancelled 05/08/18 18:51 U Tot Metanephrine 24h Cancelled 05/08/18 18:51 U Metanephrine Comment Cancelled 05/08/18 18:51 Urine Dopamine Cancelled 05/08/18 18:51 Urine Opiates Screen Negative (Negative) 05/06/18 09:05 Urine Methadone Screen Negative (Negative) 05/06/18 09:05 Ur Barbiturates Screen Negative (Negative) 05/06/18 09:05 Ur Tricyclics Screen Negative (Negative) 05/06/18 09:05 Ur Amphetamines Screen Negative (Negative) 05/06/18 09:05 U Benzodiazepines Scrn Negative (Negative) 05/06/18 09:05 [place] 0.35 mmol/L (0.60-1.20) L 05/07/18 06:20 Urine Cocaine Screen Negative (Negative) 05/06/18 09:05 Ur THC Screen Negative (Negative) 05/06/18 09:05 Ethyl Alcohol < 3.0 mg/dL (<3) 05/06/18 09:21
[2018-05-13] MEDS: Carvedilol 25 MG TAB PO ×2 (11:50→20:53)
--- NOTE | 2018-05-13 13:02 | DI.RAD_ITS ---
SYMPTOMS/DIAGNOSIS: F/U HCAP PORTABLE AP CHEST: The heart is enlarged. There is an ill-defined increased density in the right upper lobe which likely represents an acute pneumonitis. The lungs are otherwise grossly clear. SUMMARY: Findings consistent with a right upper lobe pneumonitis.
--- NOTE | 2018-05-13 13:18 | PDOC.CMPRO ---
Care Management Progress Note S/O-Spoke with jeanne Mcghee today and advised that Tona is not yet ready to return to [facility]. Tona has requested that she be referred to orthopedist in this area since she will be returning to [facility] for rehab. She came to [facility] last week from [place] and had orthopedist there while hospitalized, and has scheduled follow-up next week but jeanne prefers she be seen in [facility]. Spoke with DNS from [facility] who felt that their MD should facilitate this, and she will set this up. Left message for jeanne that [facility] will arrange this. A-58 yo woman admitted with LLL pneumonia, hypernatremia. P-transfer back to [facility] as per MD when medically ready, via [place].
[2018-05-13] MEDS: Acetaminophen 325 MG TAB PO (14:14)
[2018-05-13] MEDS: DEXTROSE 5%-WATER 1,000 ML 110 ML IV (15:25)
--- NOTE | 2018-05-13 15:41 | CMPROGNOTE_ITS ---
Care Management Progress Note S/O-Spoke with jeanne Mcghee today and advised that Tona is not yet ready to return to [facility]. Tona has requested that she be referred to orthopedist in this area since she will be returning to [facility] for rehab. She came to [facility] last week from [place] and had orthopedist there while hospitalized, and has scheduled follow-up next week but jeanne prefers she be seen in [facility]. Spoke with DNS from [facility] who felt that their MD should facilitate this, and she will set this up. Left message for jeanne that [facility] will arrange this. A-58 yo woman admitted with LLL pneumonia, hypernatremia. P-transfer back to [facility] as per MD when medically ready, via [place].
[2018-05-13 16:08] LABS: Adrenocorticotropic Hormone, P 6.4 pg/mL
[2018-05-13 16:55] LABS: Anion Gap 4.9 mmol/L (3-11); BUN 27 mg/dL (7-18); CO2 30.1 mmol/L (21.0-32.0); CREATININE 2.69 mg/dL (0.55-1.02); Chloride 108 mmol/L (98-107); Estimated GFR 18.31 (mL/min/1.73m2); Glucose 112 mg/dL (70-100); Potassium 4.3 mmol/L (3.5-5.1); Sodium 143 mmol/L (136-145)
--- NOTE | 2018-05-13 16:58 | W.ORTHOCONSU ---
Date of service: 05/13/18 Time of Service: 11:59 History of Present Illness Chief Complaint: Left Knee Pain Narrative: Tona is a 58-year-old who I was asked to consult on for left knee pain in the medial tibial plateau fracture. He is currently admitted for severe electrolyte imbalance and multiple other medical issues. She is currently in the intensive care unit due to these issues. She is mentally retarded and unfortunately provide no history today. She is quite somnolent. The history was obtained from the caregiver and the admitting physician, Dr. Do. She ambulates very minimally. She has significant obesity and other medical orbit is a limit her ambulation. The last time she was observed to walk was over 2 weeks ago. She has frequent falls but there is no 1 specific event that he remembered. Due to persistent pain complaints of the left knee and inability to ambulate she was seen in the [facility]. It was there she was diagnosed with a medial tibial plateau and was sent for outpatient orthopedic follow-up. She was since admitted to the [facility] and rehab and then from there admitted to [facility] ICU for her severe mental status change and electrolyte abnormalities. She has not been ambulating. She has been in a knee immobilizer. Consults Consult date: 05/13/18 Requesting physician: Sam Collazo Consult Reason Left tibial plateau fracture Assessment and Plan (1) Left medial tibial plateau fracture: Current visit: Yes Status: Andreas Bryant is a 58-year-old morbidly obese mentally retarded patient unfortunately suffered a medial tibial plateau fracture on the left side. There is no known trauma. This is usually a high-energy mechanism which can also represent a knee distal. However, I do not think represents any of that. The alignment is relatively straight based on the x-ray. There may be some slight, 3-5 mm, depression seen on the medial tibial plateau. I would continue treatment of the knee immobilizer. She should stay nonweightbearing. She is not a surgical candidate and I think this will heal although it may take some time. I do think this represents an empty insufficiency fracture and therefore I would perform a workup for osteoporosis especially given her longtime medication use and her limited activity and her obesity. Review of Systems Review of Systems Unobtainable due to mental condition [facility] Medical History Hypernatremia (Acute) Healthcare-associated pneumonia (Acute) HTN (hypertension) (Chronic) Chronic renal insufficiency (Acute) Diabetes type 2, controlled (Chronic) Bipolar 1 disorder, depressed, severe (Chronic) Hypokalemia (Resolved) Tibial plateau fracture, left (Acute ~03/2018) MIGUEL ANGEL (obstructive sleep apnea) (Chronic) Ischemic heart disease (Chronic) Mental retardation (Chronic) Anemia (Chronic) Obesity (Chronic) HLD (hyperlipidemia) (Chronic) Hemorrhoids (Resolved) Exam Narrative Exam Narrative: Examining Annette is quite limited. She does have her eyes open but she does not respond. She is lying in the supine position and does not appear to be in any distress. Evaluation of the left lower extremity shows significant obesity. There is some mild ecchymosis medial aspect of the knee but no significant swelling nor effusion which can be appreciated. Palpation of the medial knee does not elicit much response. She localizes no distress. She does not exhibit any signs of discomfort with palpation but she is quite lethargic. The left knee was not tested for range of motion at this time. I did stress in both varus and valgus stress. He did have about 5 mm with a varus stress, no notable pain. It opened up 2-3 mm with a valgus stress. I was unable to perform a neuro exam given the patient's mental status. The left leg was warm and well-perfused. Results Labs : 05/13/18 06:35 05/13/18 07:30 Laboratory Results - last 24 hr 05/12/18 05/12/18 05/12/18 06:45 09:35 09:35 WBC RBC Hgb Hct MCV MCH MCHC RDW Plt Count MPV Immature Gran % Neutrophils % Lymphocytes % Monocytes % Eosinophils % Basophils % Absolute Neutrophils Absolute Lymphocytes Absolute Monocytes Absolute Eosinophils Absolute Basophils Sodium Potassium Chloride Carbon Dioxide Anion Gap BUN Creatinine Estimated GFR/1.73 m2 Glucose Serum Osmolality 310 H Calcium Cortisol 3 Urine Osmolality 181 05/12/18 05/12/18 05/12/18 16:15 16:15 16:15 WBC RBC Hgb Hct MCV MCH MCHC RDW Plt Count MPV Immature Gran % Neutrophils % Lymphocytes % Monocytes % Eosinophils % Basophils % Absolute Neutrophils Absolute Lymphocytes Absolute Monocytes Absolute Eosinophils Absolute Basophils Sodium 151 H Potassium 4.0 Chloride 114 H Carbon Dioxide 28.9 Anion Gap 8.1 BUN 23 H Creatinine 2.63 H Estimated GFR/1.73 m2 18.79 Glucose 96 D Serum Osmolality 308 H Calcium 8.4 L Cortisol Urine Osmolality 354 05/12/18 05/13/18 05/13/18 20:25 06:35 07:30 WBC 8.09 RBC 2.79 L Hgb 8.9 L Hct 30.4 L MCV 109.0 H MCH 31.9 MCHC 29.3 L RDW 13.9 Plt Count 91 L MPV 12.3 H Immature Gran % 0.4 Neutrophils % 77.6 Lymphocytes % 13.5 Monocytes % 5.4 Eosinophils % 2.7 Basophils % 0.4 Absolute Neutrophils 6.28 Absolute Lymphocytes 1.09 L Absolute Monocytes 0.44 Absolute Eosinophils 0.22 Absolute Basophils 0.03 Sodium 151 H 148 H Potassium 4.5 4.0 Chloride 114 H 112 H Carbon Dioxide 25.0 29.6 Anion Gap 12.0 H 6.4 BUN 26 H 24 H Creatinine 2.67 H 2.53 H Estimated GFR/1.73 m2 18.47 19.65 Glucose 109 H 122 H Serum Osmolality Calcium 8.4 L 8.1 L Cortisol Urine Osmolality
[2018-05-13] MEDS: Lactated Ringers 1,000 ML 75 ML IV (17:40)
[2018-05-14] VITALS (69 sets, daily range): BP systolic 63–207; BP diastolic 29–118; PULSE 37–76; RESP 11–26; TEMP 36.1–37.4; O2SAT 95–100
[2018-05-14 00:06] LABS: BE (Venous) -3.7 mmol/L (-3-3); HCO3 (Venous) 25 mmol/L (22-28); pCO2 (Venous) 74 mm/Hg (34-47); pH (Venous) 7.14 (7.32-7.43); pO2 (Venous) 157 mm/Hg (28-44)
--- NOTE | 2018-05-14 00:13 | W.ED.PROC ---
Date of service: 05/14/18 Time of Service: 00:00 Procedures Intubation Time out performed: Yes sedative: none Laryngoscope: Hannah ET Tube Size: 7.5 ET Tube Uncuffed: No Tube Secured Depth (cm): 25 Tube Secured Location: lips Tube Placement Confirmation: visualized tube passing through cords, equal breath sounds bilaterally and confirmation by capnometry Patient Tolerated Procedure: well Intubation Complications: none Additional Comments: Called to ICU by hospitalist for patient who is unresponsive with inadequate respiratory drive. She was admitted for healthcare acquired pneumonia but had been doing well until tonight. Upon my arrival she is being bagged by nursing and has ineffective respiratory effort. She is unresponsive. Saturations with bagging of 100%. Heart rate is right around 60. Systolic blood pressure in the 90s. She did not require any type of sedation or paralytics. She was intubated on the first attempt with a 7.5 cuffed tube using a MAC 3 blade. Chest x-ray has been ordered and is pending and will be followed up by the hospitalist who continues to manage the patient.
--- NOTE | 2018-05-14 00:20 | DI.RAD_ITS ---
SYMPTOM/DIAGNOSIS: TUBE PLACEMENT PORTABLE AP CHEST: Comparison is made with 05/13/18. Heart size appears stable. Pulmonary vasculature is within normal limits. There has been interval placement of an endotracheal tube, the tip is 2.5 cm. from the dave. There are bilateral basilar infiltrates. The lungs are otherwise clear. The bones are intact. IMPRESSION: Bilateral basilar infiltrates which may represent atelectasis or pneumonia. Endotracheal tube tip 2.5 cm. above the dave.
[2018-05-14] MEDS: Normal Saline 250 ML 500 ML IV (01:00)
--- NOTE | 2018-05-14 01:16 | DI.VRAD_ITS ---
EXAM: XR Chest, 1 View CLINICAL HISTORY: 58 years old, female; Device placement; Other: Post intubation TECHNIQUE: Frontal view of the chest. COMPARISON: CR XR PORTABLE CHEST AP 05/13/2018 12:59 PM FINDINGS: Lungs: Airspace disease in the bases. Pleural space: Unremarkable. No pneumothorax. Heart: Unremarkable. No cardiomegaly. Mediastinum: Unremarkable. Bones/joints: Unremarkable. Tubes, lines and devices: Endotracheal tube tip is 2 cm above the level of the dave. IMPRESSION: Basilar infiltrates. Dictated and Authenticated by: Augustus Bales MD. Ordering:[id number] EY MD
[2018-05-14] MEDS: Midazolam 2 MG/2 ML VIAL IVP (01:41)
[2018-05-14 04:13] LABS: HCT 29.8 % (36.0-46.0); Mean Corp. HGB Concentration 30.2 g/dL (32.0-36.0); Mean Corpuscular Volume 109.2 fL (80-95); Mean Platelet Volume 11.2 fL (8.0-11.0); Platelet Count 135 x1000/uL (130-400); RBC 2.73 m/cumm (4.00-5.20); RBC Distribution Width 13.8 % (11.7-14.6); White Blood Cell Count 15.28 k/cumm (4.4-10.8)
[2018-05-14 04:15] LABS: Reticulocyte 2.3 % (0.5-2.4)
[2018-05-14 04:28] LABS: Anion Gap 7.4 mmol/L (3-11); BUN 33 mg/dL (7-18); CO2 29.6 mmol/L (21.0-32.0); CREATININE 2.88 mg/dL (0.55-1.02); Calcium 8.8 mg/dL (8.5-10.1); Chloride 107 mmol/L (98-107); Estimated GFR 16.92 (mL/min/1.73m2); Glucose 135 mg/dL (70-100); LDH 192 U/L (81-234); Potassium 4.4 mmol/L (3.5-5.1); Sodium 144 mmol/L (136-145)
[2018-05-14 04:38] LABS: Troponin I < 0.02 ng/mL (0.00-0.06)
--- NOTE | 2018-05-14 04:55 | W.PM.PROGNOT ---
Date of service: 05/13/18 Time of Service: 21:04 Assessment and Plan (1) Respiratory failure requiring intubation: Current visit: Yes Status: Acute Etiology of respiratory failure uncertain. May have had aspiration event a day or 2 ago? May have underlying hypoventilation syndrome. Did not receive any sedative medications prior to the decline in her mental status and hypoventilation. Her altered mental status was probably on the basis of hypercarbia given the transient improvement in her mental status after her hypercarbia was corrected following intubation. It is possible she had a central [employer] event but her current status is too unstable to send for CT scan at this time. At this point continue ventilator support, follow SaO2 and end-tidal CO2. Arterial blood gases have not been able to be obtained due to inability to find an adequate pulse. Continue broad-spectrum antibiotics for hospital-acquired pathogens. (2) Oliguria: Current visit: Yes Status: Acute Probable acute on chronic kidney injury with hypoxemia and hypotension more recent contributors. Hopefully renal function will improve with improvement in her blood pressure and renal perfusion. Monitor urine output, BUN creatinine and acid-base status. (3) Hospital-acquired pneumonia: Current visit: Yes Status: Acute History suggestive may have been an aspiration event yesterday. Given that she has been on antibiotics I think blood cultures are highly unlikely to be positive and I have not drawn them. Empiric treatment with vancomycin and cefepime and monitor clinical response. (4) Hypotension: Current visit: Yes Status: Acute Drop in blood pressure probably related to hypercarbia and hypoxia given prompt improvement once intubated. Wean off Levophed based on blood pressure response. (5) Bradycardia: Current visit: Yes Status: Acute Had been on carvedilol and its effects may linger. Maintaining blood pressure, poor urine output. Mental status now difficult to assess because of sedatives but she was waking up. I do not think we need to do temporary pacing. May want to leave on Levophed for chronotropic effects. Hopefully the effects of beta-lenora will be wearing off soon. Subjective Interval history since last seen: Called to see patient because of unresponsiveness, hypotension and hypoxia, hypoventilation. She had been seemingly doing quite well earlier in the evening, taking p.o. nutrition and medications around the time of 20: 30. However, a change of shift, new nurse found her to be hyporesponsive and then unresponsive to verbal or tactile stimuli. I was then called. Her SaO2 had dropped into the 50-60% range with no perceptible effective spontaneous ventilation. She was easily bagged mast with oxygen saturations going up into the 90% range on 100% via bag mask but still had no significant respiratory effort on her own. She was subsequently intubated by Dr. Quintana. She had no gag reflex at the time of intubation, which was done without any sedation. Following intubation she had very coarse breath sounds with some purulent material from suctioning, right-sided findings mostly. Her initial end-tidal CO2 was around 70%. Her venous pH prior to intubation was 7.14. Following intubation her end-tidal CO2 has gradually dropped down to about 35% and her oxygenation has been in the mid 90% range with decreasing FiO2. After intubation she opened her eyes and had some spontaneous movements, to the point that she was starting to pull on her tube and so was given low dose of Versed with resultant somnolence and lack of response to verbal stimuli again. She has had no urine output since approximately 20: 30 last evening. Guardian has been notified of her change in status and is wondering about transfer to tertiary center. She had persistent hypotension following intubation, was given a 500 cc fluid bolus and then started on norepinephrine infusion but only required low dose before her blood pressure started to go up, with systolics reaching the 140 range before backing down on her norepinephrine infusion rate. IV access has been problematic. Attempts were made to obtain arterial blood gas but her pulses in her upper extremities were very poor and ABG attempt was unsuccessful. Exam Narrative Exam Narrative: Unresponsive, obtunded initially, after intubation eyes open, not following simple commands. Initial lung exam with no air movement, agonal respiratory effort. Following intubation and ventilatory support, very coarse breath sounds in the right lung field a little bit clearer on the left. Regular heart rhythm no murmur heard. Abdomen quiet. Brace on the left leg. Good palpable pulse in the right foot but difficult to feel any pulse in either wrist. Extremities a little bit cool but not mottled. No petechiae. No spontaneous movements initially but after intubation did have some spontaneous movements of her left and right hand. She did open her eyes spontaneously. At the time of intubation she had no gag reflex. No DTRs elicited anywhere. Objective Objective Clinical Data: Abnormal lab results 09/05/12/18 05/13/18 Range/Units 09:35 16:15 06:35 WBC (4.4-10.8) k/cumm RBC 2.79 L (4.00-5.20) m/cumm Hgb 8.9 L (12.0-15.5) g/dL Hct 30.4 L (36.0-46.0) % MCV 109.0 H (80-95) fL MCHC 29.3 L (32.0-36.0) g/dL Plt Count 91 L (130-400) x1000/uL MPV 12.3 H (8.0-11.0) fL Absolute Lymphocytes 1.09 L (1.2-3.4) k/cumm VBG pH (7.32-7.43) VBG pCO2 (34-47) mm/Hg VBG pO2 (28-44) mm/Hg VBG Base Excess (-3-3) mmol/L Sodium (136-145) mmol/L Chloride (98-107) mmol/L BUN (7-18) mg/dL Creatinine (0.55-1.02) mg/dL Glucose (70-100) mg/dL Serum Osmolality 310 H 308 H (275-295) mOsm/kg Calcium (8.5-10.1) mg/dL 05/13/18 05/13/18 05/13/18 Range/Units 07:30 16:40 23:53 WBC (4.4-10.8) k/cumm RBC (4.00-5.20) m/cumm Hgb (12.0-15.5) g/dL Hct (36.0-46.0) % MCV (80-95) fL MCHC (32.0-36.0) g/dL Plt Count (130-400) x1000/uL MPV (8.0-11.0) fL Absolute Lymphocytes (1.2-3.4) k/cumm VBG pH 7.14 L (7.32-7.43) VBG pCO2 74 H (34-47) mm/Hg VBG pO2 157 H (28-44) mm/Hg VBG Base Excess -3.7 L (-3-3) mmol/L Sodium 148 H (136-145) mmol/L Chloride 112 H 108 H (98-107) mmol/L BUN 24 H 27 H (7-18) mg/dL Creatinine 2.53 H 2.69 H (0.55-1.02) mg/dL Glucose 122 H 112 H (70-100) mg/dL Serum Osmolality (275-295) mOsm/kg Calcium 8.1 L 8.0 L (8.5-10.1) mg/dL 05/14/18 05/14/18 Range/Units 04:00 04:00 WBC 15.28 H D (4.4-10.8) k/cumm RBC 2.73 L (4.00-5.20) m/cumm Hgb 9.0 L (12.0-15.5) g/dL Hct 29.8 L (36.0-46.0) % MCV 109.2 H (80-95) fL MCHC 30.2 L (32.0-36.0) g/dL Plt Count (130-400) x1000/uL MPV 11.2 H (8.0-11.0) fL Absolute Lymphocytes (1.2-3.4) k/cumm VBG pH (7.32-7.43) VBG pCO2 (34-47) mm/Hg VBG pO2 (28-44) mm/Hg VBG Base Excess (-3-3) mmol/L Sodium (136-145) mmol/L Chloride (98-107) mmol/L BUN 33 H (7-18) mg/dL Creatinine 2.88 H (0.55-1.02) mg/dL Glucose 135 H (70-100) mg/dL Serum Osmolality (275-295) mOsm/kg Calcium (8.5-10.1) mg/dL Vital Signs Temp 36.1 C L 05/14/18 03:17 Pulse 37 L 05/14/18 04:25 Resp 15 05/14/18 02:55 BP 124/62 05/14/18 02:55 Pulse Ox 98 05/14/18 02:55 Intake & Output 05/13/18 05/13/18 05/14/18 11:59 23:59 11:59 Intake Total 1320 / 1320 1491.167 / 1491.167 575.476 / 575.476 Output Total 450 / 450 550 / 550 Balance 870 / 870 941.167 / 941.167 575.476 / 575.476 Weight 120.3 kg Intake: IV 1000 / 1000 1251.167 / 1251.167 575.476 / 575.476 Oral 320 / 320 240 / 240 Output: Urine 450 / 450 550 / 550 Other: Urine Color Light Princess Yellow Urine Appearance Clear Clear Clear Urine Odor None Stool Occult Blood Negative Stool Size Moderate Stool Characteristics Liquid Voiding Methods Indwelling Catheter Indwelling Catheter Laboratory Results WBC 15.28 k/cumm (4.4-10.8) H D 05/14/18 04:00 RBC 2.73 m/cumm (4.00-5.20) L 05/14/18 04:00 Hgb 9.0 g/dL (12.0-15.5) L 05/14/18 04:00 Hct 29.8 % (36.0-46.0) L 05/14/18 04:00 MCV 109.2 fL (80-95) H 05/14/18 04:00 MCH 33.0 pg (27.0-33.0) 05/14/18 04:00 MCHC 30.2 g/dL (32.0-36.0) L 05/14/18 04:00 RDW 13.8 % (11.7-14.6) 05/14/18 04:00 Plt Count 135 x1000/uL (130-400) 05/14/18 04:00 MPV 11.2 fL (8.0-11.0) H 05/14/18 04:00 Immature Gran % 0.4 05/13/18 06:35 Neutrophils % 77.6 05/13/18 06:35 Lymphocytes % 13.5 05/13/18 06:35 Monocytes % 5.4 05/13/18 06:35 Eosinophils % 2.7 05/13/18 06:35 Basophils % 0.4 05/13/18 06:35 Absolute Neutrophils 6.28 k/cumm (1.2-6.7) 05/13/18 06:35 Absolute Lymphocytes 1.09 k/cumm (1.2-3.4) L 05/13/18 06:35 Absolute Monocytes 0.44 k/cumm (0.11-0.7) 05/13/18 06:35 Absolute Eosinophils 0.22 k/cumm (0.0-0.7) 05/13/18 06:35 Absolute Basophils 0.03 k/cumm (0.0-0.2) 05/13/18 06:35 Differential Comment Rbc morph reviewed 05/09/18 06:50 RBC Morphology See below 05/09/18 06:50 Polychromasia Present 05/09/18 06:50 Hypochromasia 1+ 05/06/18 09:21 Basophilic Stippling Present 05/09/18 06:50 Macrocytosis 1+ 05/09/18 06:50 Retic Count 2.3 % (0.5-2.4) 05/14/18 04:00 VBG pH 7.14 (7.32-7.43) L 05/13/18 23:53 VBG pCO2 74 mm/Hg (34-47) H 05/13/18 23:53 VBG pO2 157 mm/Hg (28-44) H 05/13/18 23:53 VBG HCO3 25 mmol/L (22-28) 05/13/18 23:53 VBG Total CO2 Not Applicable 05/13/18 23:53 VBG O2 Saturation % (70-80) 05/13/18 23:53 VBG Base Excess -3.7 mmol/L (-3-3) L 05/13/18 23:53 Sodium 144 mmol/L (136-145) 05/14/18 04:00 Potassium 4.4 mmol/L (3.5-5.1) 05/14/18 04:00 Chloride 107 mmol/L (98-107) 05/14/18 04:00 Carbon Dioxide 29.6 mmol/L (21.0-32.0) 05/14/18 04:00 Anion Gap 7.4 mmol/L (3-11) 05/14/18 04:00 BUN 33 mg/dL (7-18) H 05/14/18 04:00 Creatinine 2.88 mg/dL (0.55-1.02) H 05/14/18 04:00 Estimated GFR/1.73 m2 16.92 (mL/min/1.73m2) 05/14/18 04:00 Glucose 135 mg/dL (70-100) H 05/14/18 04:00 Serum Osmolality 308 mOsm/kg (275-295) H 05/12/18 16:15 Calcium 8.8 mg/dL (8.5-10.1) 05/14/18 04:00 Magnesium 2.0 mg/dL (1.8-2.4) 05/10/18 00:20 Total Bilirubin 0.2 mg/dL (0.2-1.0) 05/07/18 06:20 Conjugated Bilirubin 0.12 mg/dL (0.00-0.20) 05/06/18 09:21 AST 11 U/L (15-37) L 05/07/18 06:20 ALT 16 U/L (12-78) 05/07/18 06:20 Alkaline Phosphatase 107 U/L (46-116) 05/07/18 06:20 Lactate Dehydrogenase 192 U/L (81-234) 05/14/18 04:00 Troponin I < 0.02 ng/mL (0.00-0.06) 05/14/18 04:00 NT-Pro-B Natriuret Pep 36280 pg/mL (-299) H 05/06/18 09:21 Total Protein 5.4 g/dL (6.4-8.2) L 05/07/18 06:20 Albumin 3.2 g/dL (3.4-5.0) L 05/07/18 06:20 Renin Activity <0.6 ng/mL/h 05/09/18 06:50 Aldosterone 12 ng/dL (<=21) 05/09/18 06:50 Vitamin B12 509 pg/mL (193-986) 05/10/18 06:15 Folate > 20.0 ng/mL (8.6-20.0) H 05/10/18 06:15 TSH 1.07 uIU/mL (0.358-3.74) 05/06/18 09:21 Cortisol 3 ug/dL 05/12/18 09:35 ACTH 82 pg/mL H 05/09/18 06:50 Urine Color Yellow (Yellow) 05/06/18 09:05 Urine Clarity Clear 05/06/18 09:05 Urine pH 7.5 (5-8) 05/06/18 09:05 Ur Specific [place] 1.015 (1.005-1.025) 05/06/18 09:05 Urine Protein 100 mg/dL (Negative) H 09/13/18 09:05 Urine Ketones Negative mg/dL (Negative) 05/06/18 09:05 Urine Blood Trace-intact (Negative) H 05/06/18 09:05 Urine Nitrite Negative (Negative) 05/06/18 09:05 Urine Bilirubin Negative (Negative) 05/06/18 09:05 Urine Urobilinogen 0.2 EU/dL (Up TO 0.2) 05/06/18 09:05 Ur Leukocyte Esterase Negative (Negative) 05/06/18 09:05 Urine RBC 0-2 (0-2) 05/06/18 09:05 Urine WBC 0-2 HPF (0-5) 05/06/18 09:05 Ur Epithelial Cells Rare HPF (Negative) 05/06/18 09:05 Urine Crystals Negative HPF (Negative) 05/06/18 09:05 Urine Bacteria Rare HPF (Negative) 05/06/18 09:05 Urine Casts Negative LPF (Negative) 05/06/18 09:05 Urine Mucus Negative (Negative) 05/06/18 09:05 Urine Other Rare renal (Negative) 05/06/18 09:05 Ur Culture Indicated? No 05/06/18 09:05 Urine Osmolality 354 mosm/Kg (150-1150) 05/12/18 16:15 Ur Collection Duration Cancelled 05/08/18 18:51 Urine Total Volume Cancelled 05/08/18 18:51 Ur 24 Hour Volume Cancelled 05/08/18 18:51 Urine Glucose Negative mg/dL (Negative) 05/06/18 09:05 Ur Free Cortisol 24 Hr Cancelled 05/08/18 18:51 Urine Epinephrine Cancelled 05/08/18 18:51 Urine Norepinephrine Cancelled 05/08/18 18:51 U Metanephrines 24 Hr Cancelled 05/08/18 18:51 U Normetanephrine 24h Cancelled 05/08/18 18:51 U Tot Metanephrine 24h Cancelled 05/08/18 18:51 U Metanephrine Comment Cancelled 05/08/18 18:51 Urine Dopamine Cancelled 05/08/18 18:51 Urine Opiates Screen Negative (Negative) 05/06/18 09:05 Urine Methadone Screen Negative (Negative) 05/06/18 09:05 Ur Barbiturates Screen Negative (Negative) 05/06/18 09:05 Ur Tricyclics Screen Negative (Negative) 05/06/18 09:05 Ur Amphetamines Screen Negative (Negative) 05/06/18 09:05 U Benzodiazepines Scrn Negative (Negative) 05/06/18 09:05 Neligh 0.35 mmol/L (0.60-1.20) L 05/07/18 06:20 Urine Cocaine Screen Negative (Negative) 05/06/18 09:05 Ur THC Screen Negative (Negative) 05/06/18 09:05 Ethyl Alcohol < 3.0 mg/dL (<3) 05/06/18 09:21 Chest x-ray?ET tube in good position, increased infiltrate right lung field, moderate pleural effusion on the right, no pneumothorax appreciated. EKG sinus bradycardia, question pseudonormalization of T waves compared to prior ECG?
[2018-05-14 04:59] LABS: Iron 53 ug/dL (50-175); Total Iron Binding Capacity 214 ug/dL (250-450); Transferrin Sat 25 % (15-50)
[2018-05-14 05:10] LABS: Ferritin 33 ng/mL (8-388)
[2018-05-14 05:12] LABS: Folate 18.5 ng/mL (8.6-20.0); Vitamin B12 511 pg/mL (193-986)
--- NOTE | 2018-05-14 05:34 | PDOC.ANES ---
Date of service: 05/14/18 Time of Service: 04:00 Anesthesia Note Report Anesthesia Note: Called to establish additional venous access on this unwell pt currently on Norepi and requiring MIVF and antibiotics. Only access currently is a left arm single lumen PICC or midline. Arms ultrasounded with no obvious easy venous target. A 20 ga PIV was placed in the right saphenous vein. Discussion was had with Dr Gastelum and pt's guardian about additional access (midline vs IJ TLC). Due to low norepi requirment(~ 2 mcg/min), and MAP 75-80, the decision was made to attempt for midline on the right arm. Mid line was attempted x 3 without success. Further discussion was had and decision made to hold of on central access due to increase risk of infection and hopeful continued reduction of norepinephrine dose. Nursing staff informed of the plan, and that they can call me back if her condition changes (increasing norepi dose/additional vasoactives).
--- NOTE | 2018-05-14 05:49 | ANES_ITS ---
Date of service: 05/14/18 Time of Service: 04:00 Anesthesia Note Report Anesthesia Note: Called to establish additional venous access on this unwell pt currently on Norepi and requiring MIVF and antibiotics. Only access currently is a left arm single lumen PICC or midline. Arms ultrasounded with no obvious easy venous target. A 20 ga PIV was placed in the right saphenous vein. Discussion was had with Dr Gastelum and pt's guardian about additional access ( midline vs IJ TLC). Due to low norepi requirment(~ 2 mcg/min), and MAP 75-80, the decision was made to attempt for midline on the right arm. Mid line was attempted x 3 without success. Further discussion was had and decision made to hold of on central access due to increase risk of infection and hopeful continued reduction of norepinephrine dose. Nursing staff informed of the plan, and that they can call me back if her condition changes (increasing norepi dose/ additional vasoactives).
[2018-05-14] MEDS: CEFEPIME 2 GM in Normal Saline 100 ML IVPB (08:02)
[2018-05-14 08:04] LABS: BE (Venous) 1.2 mmol/L (-3-3); HCO3 (Venous) 27 mmol/L (22-28); O2 Sat (Venous) 76 % (70-80); TCO2 (Venous) 26 mmol/L (22-29); pCO2 (Venous) 51 mm/Hg (34-47); pH (Venous) 7.33 (7.32-7.43); pO2 (Venous) 38 mm/Hg (28-44)
[2018-05-14 08:08] LABS: Lactate-non-spesis 0.9 mmol/L (0.6-1.4)
[2018-05-14] MEDS: VANCOMYCIN 1,000 MG in Normal Saline 250 ML 166.6666 MG IVPB (08:16)
[2018-05-14] MEDS: Atropine 1 MG/10 ML SYRINGE 0.5 MG IVP (08:21)
[2018-05-14 08:22] LABS: Troponin I 0.03 ng/mL (0.00-0.06)
--- NOTE | 2018-05-14 10:26 | W.PM.DS.N ---
Date of service: 05/14/18 Time of Service: 10:26 DS: Diagnosis Discharge Diagnosis (1) Respiratory failure requiring intubation: Status: Acute (2) Oliguria: Status: Acute (3) Hospital-acquired pneumonia: Status: Acute (4) Hypotension: Status: Acute (5) Bradycardia: Status: Acute Discharge Plan Disposition Patient Disposition: [facility] Condition: Critical Discharge Details Chief Complaint: GenMedical Reason For Visit: acute resp. failure; KOBI; aspiration pneum. Admit Date/Time: 05/06/18 10:55 Admit Provider: Taran San Attending Provider: Sam Collazo Primary Care Provider: Mariana Arias ED Provider: Alexys Valdivia Hospital Course Hospital Course: 58-year-old female with a past medical history of essential hypertension, bipolar disorder, DM type 2, mental retardation, chronic kidney disease, status post nephrectomy for recurrent pyelonephritis and nephrolithiasis, with a recent left tibial plateau fracture requiring nonweightbearing status and knee immobilizer. Patient had been rehabbing at [facility]. Patient is normally patient up at [facility] in [facility]. Patient was sent from [facility] to [facility] with fever chills and hypoxia and found to have a severe hypertension with a blood pressure 217/108 along with hypokalemia of 3.2 and hypernatremia of 157 and a left lower lobe infiltrate and renal insufficiency with a BUN of 21 and creatinine 2.0. Patient's maintained on multiple blood pressure medications including carvedilol, amlodipine, hydralazine, lisinopril, torsemide. For her bipolar disorder she has been chronically on lithium for which she doses been recently tapered. She is also on multiple other psychiatric medication including risperidone, citalopram, carbamazepine, cariprazine. Patient had blood cultures obtained on admission and stool obtained for C. difficile and a nasal swab for MRSA screen. Stool was negative for C. difficile and MRSA screen was positive and blood cultures came back no growth. Admission chest x-ray from May 06, 2018 shows small left pleural effusion and questionable left basilar infiltrate suggestive of pneumonia versus atelectasis. Noncontrast CT scan of the head was obtained because of her acute mental status change and showed no acute intracranial process. She was admitted to the hospital and had blood cultures obtained and then started on Zosyn 3.375 g IV every 6 hours for healthcare acquired pneumonia. Her hypokalemia was treated with supplemental parenteral potassium and her hypernatremia was treated with hypotonic IV solutions including D5W and then subsequently half-normal saline. Her diabetes was managed with NovoLog per sliding scale. Patient clinically improved with parenteral antibiotics with improvement in her oxygen status. With treatment with hypotonic solutions her serum sodium declined. from 157 to 149. However after her D5W was discontinued and 1/2 NS was started her sodium level william to 154. She was restarted on D5W with appropriate decline of her sodium to 147. 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 I proceeded to perform workup initially checking random urine and plasma osmolalities which showed low urine osmolality of 117 and higher normal plasma osmolality of 295. After overnight water deprivation, her serum osmolality went up to 310 and her urine osmolality remained inappropriately low at 181. Her serum sodium william to 150 from 147. She was restarted on D5w and she was given DDAVP and her urine osmolality two hours later william to 354 and her plasma osmolality went to 308. Over then next 24 hours her serum sodium declined to 148 and by the afternoon of 05/13/2018 her sodium was down to 143. At that point D5w was discontinued and she was put on LR @ 75 mL/hr for continued hydration for her KOBI and d/t poor oral intake. As for inection treatment, she was initially treated w/ Zosyn (05/06-05/11) and eventually changed to Augmentin on 05/11. She remained afebrile w/ no leukocytosis through 05/13. However during the evening of 05/13 she had what was perceived to be an aspiration event and went into respiratory failure with worsening infiltrates. She required intubation and mechanical ventilation. She developed hypotension and required norepinephrine drip to stabilize her blood pressure. Her aspiration pneumonitis was treated w/ vancomycin and cefepime. Earlier in the day on 05/13 she had experienced some low blood pressures into the 90's to low 100's systolic but this had been attributed to recent blood pressure medications changes. When she was admitted she had extreme hypertension that required escalation of her hydralazine, carvedilol, lisinopril and addition of spironolactone. She was evaluated for secondary forms of HTN including hyperaldosteronism and hypercortisolism. Early in her admission she briefly required a nicardipine drip to control her blood pressures but once she got on spironolactone her blood pressures normalized and I de-escalated her hydralazine and coreg. Becasuse of worsening renal function from 05/12-05/13, her spironolactone and lisinopril had to be put on hold. Her workup for hyperaldosteronism was suggestive of the diagnosis (PRA <0.6 with aldosterone level of 12, ratio of 20); her workup for hypercortisolism showed failure to adequately suppress to high dose dexamethasone (serum cortisol of 3 after overnight dose of dexamethasone of 8 mg). With initiation of DDAVP her serum normalized to 143. During the resuscitation during the evening/night of 05/13 - 05/14 she had placement of left midline in her left upper arm and peripheral iv was placed in her right foot. Attempt at CVP line was unsuccessful. On the a.m. of 05/14, I called and spoke w/ Dr. Pal, administration vice president at [facility] and after review of her case he accepted the patient in transfer for treatment of acute respiratory failure, aspiration pneumonia, and acute kidney injury. Of note regarding her feedings prior to the aspiration event, a speech therapy consult was obtained and the patient was tolerating supervised feedings of nectar thickened liquids and mechanically altered foods which had been recommended. Home Meds and New Rx's Prescriptions: New spironolactone 50 mg Tablet 100 mg PO DAILY Qty: 0 RF: 0 Continue multivitamin Tablet 1 tab PO DAILY RF: 0 carvedilol 25 mg Tablet 25 mg PO BID RF: 0 acetaminophen 325 mg Tablet 650 mg PO .Q4HRS PRNRF: 0 citalopram 40 mg Tablet 40 mg PO DAILY RF: 0 polyethylene glycol 3350 [Miralax] 17 gram Powder In Packet 17 g PO DAILY PRNRF: 0 ondansetron HCl [Zofran] 4 mg Tablet 4 mg PO .Q6HRS PRNRF: 0 isosorbide mononitrate 30 mg Tablet Extended Release 24 Hr 30 mg PO DAILY RF: 0 risperidone 2 mg Tablet 2 mg PO DAILY RF: 0 ascorbic acid (vitamin C) [Vitamin C] 500 mg Tablet 500 mg PO DAILY RF: 0 amlodipine 10 mg Tablet 10 mg PO DAILY RF: 0 simvastatin 20 mg Tablet 20 mg PO .QHS RF: 0 ferrous sulfate [Iron (ferrous sulfate)] 325 mg (65 mg iron) Tablet 325 mg PO BID RF: 0 docusate sodium [Colace] 100 mg Capsule 100 mg PO BID RF: 0 omeprazole 20 mg Capsule,Delayed Release(Dr/Ec) 20 mg PO DAILY RF: 0 aspirin 81 mg Tablet,Chewable 81 mg PO DAILY RF: 0 vitamin B complex Tablet 1 tab PO DAILY RF: 0 albuterol sulfate [Ventolin HFA] 90 mcg/actuation Hfa Aerosol Inhaler 2 puff Inhalation .Q4 HOURS PRNRF: 0 ipratropium bromide 42 mcg (0.06 %) [place],Non-Aerosol 1 spray Intranasal .Q8HRS PRNRF: 0 risperidone 0.5 mg Tablet 0.5 mg PO .Q8HRS PRNRF: 0 budesonide-formoterol [Symbicort] 160-4.5 mcg/actuation Hfa Aerosol Inhaler 1 puff Inhalation DAILY RF: 0 melatonin 5 mg Tablet 5 mg PO .QHS RF: 0 cariprazine 1.5 mg Capsule 1.5 mg PO DAILY RF: 0 carbamazepine (mood stabiliz) 200 mg Capsule, Er Multiphase 12 Hr 200 mg PO BID RF: 0 glucagon (human recombinant) [Glucagon Emergency Kit (human)] 1 mg Kit 1 mg IM .Q15 MINUTES PRNRF: 0 dextrose [Glucose Gel] 40 % Gel 1 dose PO PRNRF: 0 nitroglycerin 2 % Ointment 0.25 inch Transdermal PRNRF: 0 Discontinued lisinopril 20 mg Tablet 20 mg PO DAILY RF: 0 torsemide 10 mg Tablet 10 mg PO DAILY RF: 0 potassium chloride [Klor-Con 10] 10 mEq Tablet Extended Release 20 mg PO DAILY RF: 0 hydralazine 50 mg Tablet 50 mg PO TID RF: 0 lorazepam 1 mg Tablet 1 mg PO PRNRF: 0 lithium carbonate 300 mg Tablet 300 mg PO DAILY RF: 0 No Action amoxicillin-pot clavulanate [Augmentin] 500-125 mg Tablet 1 tab PO BID RF: 0 Iv Access 1 each IV DIRECTED Qty: 1 RF: 0 Discharge Instructions Activity:: bedrest Diet:: npo Discharge Orders Discharge Orders: Discharge Order (Routine); Ordered 05/14/18 Ordered By: Sam Collazo Discharge Data Discharge Date/Time-TO BE ENTERED AT DEPARTURE: 05/14/18 10:45 Discharge Comment: sent to [facility] Exam Const General: patient mechanically ventilated Nutritional Appearance: obese Orientation: obtunded Limitations: altered mental status [facility] Head: normal to inspection, normocephalic and atraumatic Ears: hearing grossly normal bilaterally Eyes General: appearance normal, both eyes and all related structures Alignment and Position: alignment normal Eyelids: eyelids normal Conjunctivae: conjunctivae normal Sclera: sclerae normal Cornea: corneas normal Pupils: PERRL Neck Neck: normal visual inspection, full ROM, no lymphadenopathy, no meningeal signs, trachea midline, supple and no JVD Thyroid: thyroid normal Carotids: normal carotid upstroke Lymphatic: no lymphadenopathy noted Resp Effort & Inspection: normal respiratory effort Auscultation: bronchovesicular breath sounds bilaterally and crackles bilaterally Cardio Jugular venous pressure: no JVD Palpation: normal PMI Rate: regular rate Rhythm: regular rhythm Heart Sounds: normal, physiologic split S2 and murmur systolic Bruits: no abdominal aortic bruits, no carotid bruits and no renal bruits GI Inspection: normal to inspection Palpation: soft and no hepatosplenomegaly Percussion: normal to percussion Auscultation: normal bowel sounds Neuro General: awake, moves all extremities, normal light touch, pain and propioception, no focal motor deficits and other (patient intubated limiting ability to assess her cognition; however, she is awake and looking around the room and her GCS is 10 (E4, V1t, M5)) Cranial Nerves: EOM intact bilaterally and no nystagmus Motor: muscle tone normal throughout and strength 5/5 throughout Sensory Exam: no sensory deficits noted Extrem General: normal to inspection, full ROM and normal capillary refill Left upper extremity: shoulder/upper arm (midline present) Right lower extremity: foot Details: other (peripheral iv in right foot) DS: Data Vitals/I&O Vitals and I&O: Vital Signs Temp 37.4 C 05/14/18 08:52 Pulse 65 05/14/18 09:01 Resp 15 05/14/18 09:12 BP 160/89 H 05/14/18 09:01 Pulse Ox 96 05/14/18 09:12 Intake & Output 05/13/18 05/13/1805/14/18 11:59 23:59 11:59 Intake Total 1320 / 1320 1491.167 / 1491.167 972.829 / 972.829 Output Total 450 / 450 550 / 550 Balance 870 / 870 941.167 / 941.167 972.829 / 972.829 Weight 120.3 kg Intake: IV 1000 / 1000 1251.167 / 1251.167 972.829 / 972.829 Oral 320 / 320 240 / 240 Output: Urine 450 / 450 550 / 550 Other: Urine Color Light Princess Yellow Urine Appearance Clear Clear Clear Urine Odor None Comment Indwelling Fox catheter. Stool Occult Blood Negative Stool Size Moderate Stool Characteristics Liquid Voiding Methods Indwelling Catheter Indwelling Catheter Labs on day of discharge: Labs from last 24 hours 05/14/18 05/14/18 05/14/18 07:55 07:55 07:55 WBC RBC Hgb Hct MCV MCH MCHC RDW Plt Count MPV Immature Gran % Neutrophils % Lymphocytes % Monocytes % Eosinophils % Basophils % Absolute Neutrophils Absolute Lymphocytes Absolute Monocytes Absolute Eosinophils Absolute Basophils Retic Count VBG pH 7.33 VBG pCO2 51 H VBG pO2 38 VBG HCO3 27 VBG Total CO2 26 VBG O2 Saturation 76 VBG Base Excess 1.2 Sodium Potassium Chloride Carbon Dioxide Anion Gap BUN Creatinine Estimated GFR/1.73 m2 Glucose Serum Osmolality Lactate 0.9 Calcium Iron TIBC Transferrin % Sat Ferritin Lactate Dehydrogenase Troponin I 0.03 Vitamin B12 Folate Cortisol ACTH Urine Osmolality Direct Antiglob Test 05/14/18 05/14/18 05/14/18 04:00 04:00 04:00 WBC 15.28 H D RBC 2.73 L Hgb 9.0 L Hct 29.8 L MCV 109.2 H MCH 33.0 MCHC 30.2 L RDW 13.8 Plt Count 135 MPV 11.2 H Immature Gran % Neutrophils % Lymphocytes % Monocytes % Eosinophils % Basophils % Absolute Neutrophils Absolute Lymphocytes Absolute Monocytes Absolute Eosinophils Absolute Basophils Retic Count VBG pH VBG pCO2 VBG pO2 VBG HCO3 VBG Total CO2 VBG O2 Saturation VBG Base Excess Sodium Potassium Chloride Carbon Dioxide Anion Gap BUN Creatinine Estimated GFR/1.73 m2 Glucose Serum Osmolality Lactate Calcium Iron TIBC Transferrin % Sat Ferritin Lactate Dehydrogenase Troponin I < 0.02 Vitamin B12 Folate Cortisol ACTH Urine Osmolality Direct Antiglob Test Negative 05/14/18 05/14/18 05/14/18 04:00 04:00 04:00 WBC RBC Hgb Hct MCV MCH MCHC RDW Plt Count MPV Immature Gran % Neutrophils % Lymphocytes % Monocytes % Eosinophils % Basophils % Absolute Neutrophils Absolute Lymphocytes Absolute Monocytes Absolute Eosinophils Absolute Basophils Retic Count 2.3 VBG pH VBG pCO2 VBG pO2 VBG HCO3 VBG Total CO2 VBG O2 Saturation VBG Base Excess Sodium Potassium Chloride Carbon Dioxide Anion Gap BUN Creatinine Estimated GFR/1.73 m2 Glucose Serum Osmolality Lactate Calcium Iron 53 TIBC 214 L Transferrin % Sat 25 Ferritin Lactate Dehydrogenase Troponin I Vitamin B12 511 Folate 18.5 Cortisol ACTH Urine Osmolality Direct Antiglob Test 05/14/18 05/13/18 05/13/18 04:00 23:53 16:40 WBC RBC Hgb Hct MCV MCH MCHC RDW Plt Count MPV Immature Gran % Neutrophils % Lymphocytes % Monocytes % Eosinophils % Basophils % Absolute Neutrophils Absolute Lymphocytes Absolute Monocytes Absolute Eosinophils Absolute Basophils Retic Count VBG pH 7.14 L VBG pCO2 74 H VBG pO2 157 H VBG HCO3 25 VBG Total CO2 Not Applicable VBG O2 Saturation VBG Base Excess -3.7 L Sodium 144 143 Potassium 4.4 4.3 Chloride 107 108 H Carbon Dioxide 29.6 30.1 Anion Gap 7.4 4.9 BUN 33 H 27 H Creatinine 2.88 H 2.69 H Estimated GFR/1.73 m2 16.92 18.31 Glucose 135 H 112 H Serum Osmolality Lactate Calcium 8.8 8.0 L Iron TIBC Transferrin % Sat Ferritin 33 Lactate Dehydrogenase 192 Troponin I Vitamin B12 Folate Cortisol ACTH Urine Osmolality Direct Antiglob Test 05/13/18 05/12/18 05/12/18 06:35 16:15 16:15 WBC 8.09 RBC 2.79 L Hgb 8.9 L Hct 30.4 L MCV 109.0 H MCH 31.9 MCHC 29.3 L RDW 13.9 Plt Count 91 L MPV 12.3 H Immature Gran % 0.4 Neutrophils % 77.6 Lymphocytes % 13.5 Monocytes % 5.4 Eosinophils % 2.7 Basophils % 0.4 Absolute Neutrophils 6.28 Absolute Lymphocytes 1.09 L Absolute Monocytes 0.44 Absolute Eosinophils 0.22 Absolute Basophils 0.03 Retic Count VBG pH VBG pCO2 VBG pO2 VBG HCO3 VBG Total CO2 VBG O2 Saturation VBG Base Excess Sodium Potassium Chloride Carbon Dioxide Anion Gap BUN Creatinine Estimated GFR/1.73 m2 Glucose Serum Osmolality 308 H Lactate Calcium Iron TIBC Transferrin % Sat Ferritin Lactate Dehydrogenase Troponin I Vitamin B12 Folate Cortisol ACTH Urine Osmolality 354 Direct Antiglob Test 05/12/18 05/12/18 05/12/18 09:35 09:35 06:45 WBC RBC Hgb Hct MCV MCH MCHC RDW Plt Count MPV Immature Gran % Neutrophils % Lymphocytes % Monocytes % Eosinophils % Basophils % Absolute Neutrophils Absolute Lymphocytes Absolute Monocytes Absolute Eosinophils Absolute Basophils Retic Count VBG pH VBG pCO2 VBG pO2 VBG HCO3 VBG Total CO2 VBG O2 Saturation VBG Base Excess Sodium Potassium Chloride Carbon Dioxide Anion Gap BUN Creatinine Estimated GFR/1.73 m2 Glucose Serum Osmolality 310 H Lactate Calcium Iron TIBC Transferrin % Sat Ferritin Lactate Dehydrogenase Troponin I Vitamin B12 Folate Cortisol 3 ACTH 6.4 L Urine Osmolality 181 Direct Antiglob Test
--- NOTE | 2018-05-14 10:51 | PDOC.CMDIS ---
- If Service Date Differs Date of service: 05/14/18 Time of Service: 10:51 LACE Index Scoring Tool - Questions: Length of Stay (in days): 7 - 13 Acuity (Admit via E.D.?): Yes Comorbidities: Diabetes w/o Complication E.D. Visits: 1 - Answers: Total Score: 10 Risk of Readmission: High Risk Care Management Discharge Reason for Hospitalization: L lower lobe pneumonia, hypernatremia Discharge Plan: Tona was vented overnight, and is being transferred to [facility] [place] [place] today. [facility] to transport. Patient/Family Education Needs: Review DC instructions, any limitations, and discuss Ask Me Three Services Needed at Discharge: Transportation ([facility])
[2018-05-14 13:38] LABS: Urine Volume 2325 mL
[2018-05-14 16:49] LABS: Metanephrines, U 79 mcg/24 h; Normetanephrine, U 904 mcg/24 h; Total Metanephrines, U 983 mcg/24 h; Urine Volume 2325 mL
[2018-05-14 17:29] LABS: Cortisol, U 7.7 mcg/24 h (3.5-45); Urine Volume 2325 mL
[2018-05-21 15:01] LABS: Arginine Vasopressin, P 0.5 pg/mL (<4.3)
== END 2018-05-14 10:45 | disposition short-term general hospital (02) | DRG 208 ==
LOC: ER 11:59 → ICU 12:26
PROVIDERS: Internal Medicine; Admitting Provider Family Medicine; Emergency Provider Emergency Medicine; PCP Family Medicine; Visit Provider Internal Medicine
DX: J18.9 Pneumonia, unspecified organism (principal); J96.00 Acute respiratory failure, unspecified whether with hypoxia or hypercapnia; N17.9 Acute kidney failure, unspecified; E87.1 Hypo-osmolality and hyponatremia; F31.4 Bipolar disorder, current episode depressed, severe, without psychotic features; T17.820A Food in other parts of respiratory tract causing asphyxiation, initial encounter; N25.1 Nephrogenic diabetes insipidus; I10 Essential (primary) hypertension; R34 Anuria and oliguria; R00.1 Bradycardia, unspecified; I95.9 Hypotension, unspecified; R09.02 Hypoxemia; R41.82 Altered mental status, unspecified; Y95 Nosocomial condition; E87.6 Hypokalemia; E11.9 Type 2 diabetes mellitus without complications; S82.142D Displaced bicondylar fracture of left tibia, subsequent encounter for closed fracture with routine healing; X58.XXXD Exposure to other specified factors, subsequent encounter; F79 Unspecified intellectual disabilities; Z90.5 Acquired absence of kidney; Y92.239 Unspecified place in hospital as the place of occurrence of the external cause; I25.9 Chronic ischemic heart disease, unspecified; Z22.322 Carrier or suspected carrier of Methicillin resistant Staphylococcus aureus
CPT/HCPCS: 36410; 36415; 36416; 36569; 51701; 71045; 80048; 80053; 80076; 80307; 82533; 82805; 82962; 83935; 85027; 87040; 87081; 92610; 93005; 93306; 94640; 96361; 96365; 97163; 99222; 99223; 99232; 99233; 99239; 99253; 99285; 99292; G8996; 31500; 70450; 71046; 73590; 80178; 80320; 81003; 81015; 81050; 82024; 82088; 82384; 82530; 82607; 82728; 82746; 83540; 83550; 83605; 83615; 83735; 83789; 83835; 83880; 83930; 84244; 84443; 84484; 84588; 85025; 85045; 86880; 87324; 92507; 93010; 94002; 99238; J1650; J2250; J2543; J2597; J3490; J7060; J8540

== ENCOUNTER → 2018-05-14 10:24 | Outpatient (BNVA) | payer MEDICARE, MEDICAID, SELFPAY | PROVIDERS: PCP Family Medicine; Referring Provider Family Medicine; Visit Provider Student in an Organized Health Care Education/Training Program | DX: R69 Illness, unspecified (principal) ==

== ENCOUNTER 2018-05-18 12:23 | Outpatient (REF) | payer SELFPAY ==
--- NOTE | 2018-05-18 10:20 | DI.RAD_ITS ---
SYMPTOMS/DIAGNOSIS: FEVER, COUGH, RHONCHI, ? LLL INFILTRATE, LT TIBIAL PLATEAU FX CHEST: Frontal and lateral views. Comparison 05/14/18. The heart is enlarged but stable. The pulmonary vasculature is within normal limits. Since the prior examination, there is slight progression of the bilateral basilar infiltrates particularly on the right. There are small bilateral pleural effusions present. There is a mild right convex scoliosis of the thoracic spine. Degenerative changes are noted. IMPRESSION: Slight progression of the basilar infiltrates with persistent small pleural effusions since 05/14/18. Differential considerations include progressive pneumonia vs development of congestive heart failure. Please correlate with the patient's clinical history. LEFT KNEE AND LEFT TIB/FIB: Multiple views were obtained. Comparison examination is 05/10/18. There does not appear to be any significant change in appearance of the medial tibial plateau fracture. There is persistent depression of the fracture noted. No new fractures or dislocations are seen in the knee or the tibia or fibula compared to the prior examination. The soft tissues are unremarkable. IMPRESSION: Stable left medial tibial plateau fracture.
== END 2018-05-18 12:43 ==
LOC: DI 12:23
PROVIDERS: PCP Family Medicine; Visit Provider Family Medicine
DX: R50.9 Fever, unspecified (principal); R05 Cough; J98.8 Other specified respiratory disorders; J90 Pleural effusion, not elsewhere classified; R91.8 Other nonspecific abnormal finding of lung field; S82.142D Displaced bicondylar fracture of left tibia, subsequent encounter for closed fracture with routine healing
CPT/HCPCS: 73562; 71046; 73590

== ENCOUNTER 2018-05-21 07:32 | Outpatient (REF) | payer MEDICARE, MEDICAID, SELFPAY ==
[2018-05-21 10:01] LABS: Anion Gap 7.5 mmol/L (3-11); BUN 29 mg/dL (7-18); CO2 33.5 mmol/L (21.0-32.0); CREATININE 2.06 mg/dL (0.55-1.02); Calcium 9.3 mg/dL (8.5-10.1); Chloride 110 mmol/L (98-107); Estimated GFR 24.91 (mL/min/1.73m2); Glucose 99 mg/dL (70-100); Potassium 3.5 mmol/L (3.5-5.1); Sodium 151 mmol/L (136-145)
== END 2018-05-21 07:52 ==
LOC: LBN 07:32
PROVIDERS: PCP Family Medicine; Visit Provider Family Medicine
DX: I10 Essential (primary) hypertension (principal); D64.9 Anemia, unspecified; E11.9 Type 2 diabetes mellitus without complications; E78.5 Hyperlipidemia, unspecified; F31.30 Bipolar disorder, current episode depressed, mild or moderate severity, unspecified
CPT/HCPCS: 80048

== ENCOUNTER 2018-05-22 22:07 | Emergency (ER) | payer MEDICARE, MEDICAID, SELFPAY ==
[2018-05-22 22:08] VITALS: BP 211/99; PULSE 65; RESP 18; TEMP 36.6
[2018-05-22 22:15] VITALS: RESP 18
--- NOTE | 2018-05-22 22:16 | W.ED.GENAD ---
Discharge Plan Disposition Patient Disposition: SNF (LEVEL 1) [facility] Condition: Good Discharge Details Chief Complaint: GenMedical Clinical Impression: Hypernatremia, Hypokalemia, CKD (chronic kidney disease) Reason For Visit: [facility] Primary Care Provider: Mariana Arias ED Provider: Roderick Quintana [place] Meds and New Rx's Prescriptions: New D5 %-0.45 % sodium chloride parenteral solution 125 ml/hr IV .continuous Qty: 1000 RF: 0 Iv Access 1 ea IV DIRECTED Qty: 1 RF: 0 Continue amoxicillin-pot clavulanate [Augmentin] 500-125 mg Tablet 1 tab PO BID RF: 0 multivitamin Tablet 1 tab PO DAILY RF: 0 carvedilol 25 mg Tablet 25 mg PO BID RF: 0 acetaminophen 325 mg Tablet 650 mg PO .Q4HRS PRNRF: 0 citalopram 40 mg Tablet 40 mg PO DAILY RF: 0 polyethylene glycol 3350 [Miralax] 17 gram Powder In Packet 17 g PO DAILY PRNRF: 0 ondansetron HCl [Zofran] 4 mg Tablet 4 mg PO .Q6HRS PRNRF: 0 isosorbide mononitrate 30 mg Tablet Extended Release 24 Hr 30 mg PO DAILY RF: 0 risperidone 2 mg Tablet 2 mg PO DAILY RF: 0 ascorbic acid (vitamin C) [Vitamin C] 500 mg Tablet 500 mg PO DAILY RF: 0 amlodipine 10 mg Tablet 10 mg PO DAILY RF: 0 simvastatin 20 mg Tablet 20 mg PO .QHS RF: 0 ferrous sulfate [Iron (ferrous sulfate)] 325 mg (65 mg iron) Tablet 325 mg PO BID RF: 0 docusate sodium [Colace] 100 mg Capsule 100 mg PO BID RF: 0 omeprazole 20 mg Capsule,Delayed Release(Dr/Ec) 20 mg PO DAILY RF: 0 aspirin 81 mg Tablet,Chewable 81 mg PO DAILY RF: 0 vitamin B complex Tablet 1 tab PO DAILY RF: 0 albuterol sulfate [Ventolin HFA] 90 mcg/actuation Hfa Aerosol Inhaler 2 puff Inhalation .Q4 HOURS PRNRF: 0 ipratropium bromide 42 mcg (0.06 %) [place],Non-Aerosol 1 spray Intranasal .Q8HRS PRNRF: 0 risperidone 0.5 mg Tablet 0.5 mg PO .Q8HRS PRNRF: 0 budesonide-formoterol [Symbicort] 160-4.5 mcg/actuation Hfa Aerosol Inhaler 1 puff Inhalation DAILY RF: 0 melatonin 5 mg Tablet 5 mg PO .QHS RF: 0 cariprazine 1.5 mg Capsule 1.5 mg PO DAILY RF: 0 carbamazepine (mood stabiliz) 200 mg Capsule, Er Multiphase 12 Hr 200 mg PO BID RF: 0 glucagon (human recombinant) [Glucagon Emergency Kit (human)] 1 mg Kit 1 mg IM .Q15 MINUTES PRNRF: 0 dextrose [Glucose Gel] 40 % Gel 1 dose PO PRNRF: 0 nitroglycerin 2 % Ointment 0.25 inch Transdermal PRNRF: 0 spironolactone 50 mg Tablet 100 mg PO DAILY Qty: 0 RF: 0 Discharge Instructions Additional Instructions: Laboratory studies tonight not significantly different than yesterday. IV in place and D5 half-normal saline running. Follow-up with physician in morning. Referrals: Mariana Arisa [Primary Care Provider] - Medical Decision Making IV established and D5 half-normal saline started at 125 mL's per hour. BMP sent. BMP not significantly different than yesterday. Potassium a little low so will give 20 po here. Continue fluids and send back to ECF for hydration. Follow up with doctor there. Lab Data Lab results reviewed: Yes I reviewed the patient's lab results. HPI General Mode of arrival: EMS. Date/Time Provider Initiated Documentation: 05/22/18 22:16. Information obtained by: RN/MD and old records reviewed. HPI Narrative: Patient sent to us from ECF for placement of IV and hydration due to a elevated sodium on yesterday's labs. Apparently, there was nobody on staff this evening to start an IV at the senior living. Labs were sent yesterday and followed up on today. Patient has been pushing p.o. fluids per senior living staff. Patient herself is a poor historian and unreliable at baseline. She has history of hypernatremia, dehydration, chronic kidney disease. Related Data Home Medications Medication Instructions Recorded Confirmed acetaminophen 650 mg PO .Q4HRS PRN 18 05/22/18 albuterol sulfate [Ventolin HFA] 2 puff INHALATION .Q4 HOURS PRN 05/06/18 05/22/18 amlodipine 10 mg PO DAILY 05/06/18 05/22/18 ascorbic acid (vitamin C) [Vitamin 500 mg PO DAILY 05/06/18 05/22/18 C] aspirin 81 mg PO DAILY 05/06/18 05/22/18 budesonide-formoterol [Symbicort] 1 puff INHALATION DAILY 05/06/18 05/22/18 carbamazepine (mood stabiliz) 200 mg PO BID 05/06/18 05/22/18 cariprazine 1.5 mg PO DAILY 05/06/18 05/22/18 carvedilol 25 mg PO BID 05/06/18 05/22/18 citalopram 40 mg PO DAILY 05/06/18 05/22/18 dextrose [Glucose Gel] 1 dose PO PRN 05/06/18 docusate sodium [Colace] 100 mg PO BID 05/06/18 05/22/18 ferrous sulfate [Iron (ferrous 325 mg PO BID 05/06/18 05/22/18 sulfate)] glucagon (human recombinant) 1 mg IM .Q15 MINUTES PRN 05/06/18 05/06/18 [Glucagon Emergency Kit (human)] ipratropium bromide 1 spray INTRANASAL .Q8HRS PRN 05/06/18 05/06/18 isosorbide mononitrate 30 mg PO DAILY 05/06/18 05/06/18 melatonin 5 mg PO .QHS 05/06/18 05/06/18 multivitamin 1 tab PO DAILY 05/06/18 05/06/18 nitroglycerin 0.25 inch TRANSDERMAL PRN 05/06/18 omeprazole 20 mg PO DAILY 05/06/18 05/06/18 ondansetron HCl [Zofran] 4 mg PO .Q6HRS PRN 05/06/18 05/06/18 polyethylene glycol 3350 [Miralax] 17 g PO DAILY PRN 05/06/18 05/06/18 risperidone 0.5 mg PO .Q8HRS PRN 05/06/18 05/06/18 risperidone 2 mg PO DAILY 05/06/18 05/06/18 simvastatin 20 mg PO .QHS 05/06/18 05/06/18 vitamin B complex 1 tab PO DAILY 05/06/18 05/06/18 spironolactone 100 mg PO DAILY #0 tab 05/14/18 D5 %-0.45 % sodium chloride 125 ml/hr IV .continuous #1000 ml 05/22/18 IV Access 1 ea IV DIRECTED #1 insert 05/22/18 amoxicillin-pot clavulanate 1 tab PO BID 05/22/18 05/22/18 [Augmentin] Previous Rx's Medication Instructions Recorded spironolactone 100 mg PO DAILY #0 tab 05/14/18 D5 %-0.45 % sodium chloride 125 ml/hr IV .continuous #1000 ml 05/22/18 IV Access 1 ea IV DIRECTED #1 insert 05/22/18 Allergies Allergy/AdvReac Type Severity Reaction Status Date / Time pollen extracts Allergy Unknown Unverified 05/22/18 22:21 Sulfa (Sulfonamide Allergy Unknown Unverified 05/22/18 22:21 Antibiotics) sulfamethoxazole Allergy Unknown Unverified 05/22/18 22:21 [From Bactrim] trimethoprim [From Bactrim] Allergy Unknown Unverified 05/22/18 22:21 General Stated Complaint: GenMedical ADAM: 3 Review of Systems Review of Systems Unobtainable due to (unreliable historian) Exam Const General: no acute distress Nutritional Appearance: obese Orientation: alert and oriented to person HENID Head: normocephalic and atraumatic Mouth: moist mucous membranes abnormal Resp Effort & Inspection: normal respiratory effort Auscultation: clear to auscultation bilaterally Cardio Rate: regular rate Rhythm: regular rhythm Heart Sounds: murmur GI Inspection: non-distended Palpation: soft, not firm and no guarding Skin General skin exam: no rashes or lesions noted Neuro General: alert, oriented Patient Orientation: Person, no focal motor deficits and CN's II-XI intact bilaterally Extrem General: other (LLE in knee immobilizer) Course Vital Signs Temperature 97.9 F 05/22/18 22:08 Pulse 65 05/22/18 22:08 Respiratory Rate 18 05/22/18 22:08 Blood Pressure 211/99 H 05/22/18 22:08 Temperature 97.9 F 05/22/18 22:08 Temperature Source Temporal Artery Scan 05/22/18 22:08 Pulse 65 05/22/18 22:08 Respiratory Rate 18 05/22/18 22:08 Blood Pressure 211/99 H 05/22/18 22:08 Blood Pressure Position Supine 05/22/18 22:08 Oxygen Delivery Method Room Air 05/22/18 22:08 Oxygen Flow Rate 0 05/22/18 22:08
--- NOTE | 2018-05-22 22:21 | ED.GENADUL_ITS ---
Discharge Plan Disposition Patient Disposition: SNF (LEVEL 1) [facility] Condition: Good Discharge Details Chief Complaint: GenMedical Clinical Impression: Hypernatremia, Hypokalemia, CKD (chronic kidney disease) Reason For Visit: [facility] Primary Care Provider: Mariana Arias ED Provider: Roderick Quintana [place] Meds and New Rx's Prescriptions: New D5 %-0.45 % sodium chloride parenteral solution 125 ml/hr IV .continuous Qty: 1000 RF: 0 Iv Access 1 ea IV DIRECTED Qty: 1 RF: 0 Continue amoxicillin-pot clavulanate [Augmentin] 500-125 mg Tablet 1 tab PO BID RF: 0 multivitamin Tablet 1 tab PO DAILY RF: 0 carvedilol 25 mg Tablet 25 mg PO BID RF: 0 acetaminophen 325 mg Tablet 650 mg PO .Q4HRS PRNRF: 0 citalopram 40 mg Tablet 40 mg PO DAILY RF: 0 polyethylene glycol 3350 [Miralax] 17 gram Powder In Packet 17 g PO DAILY PRNRF: 0 ondansetron HCl [Zofran] 4 mg Tablet 4 mg PO .Q6HRS PRNRF: 0 isosorbide mononitrate 30 mg Tablet Extended Release 24 Hr 30 mg PO DAILY RF: 0 risperidone 2 mg Tablet 2 mg PO DAILY RF: 0 ascorbic acid (vitamin C) [Vitamin C] 500 mg Tablet 500 mg PO DAILY RF: 0 amlodipine 10 mg Tablet 10 mg PO DAILY RF: 0 simvastatin 20 mg Tablet 20 mg PO .QHS RF: 0 ferrous sulfate [Iron (ferrous sulfate)] 325 mg (65 mg iron) Tablet 325 mg PO BID RF: 0 docusate sodium [Colace] 100 mg Capsule 100 mg PO BID RF: 0 omeprazole 20 mg Capsule,Delayed Release(Dr/Ec) 20 mg PO DAILY RF: 0 aspirin 81 mg Tablet,Chewable 81 mg PO DAILY RF: 0 vitamin B complex Tablet 1 tab PO DAILY RF: 0 albuterol sulfate [Ventolin HFA] 90 mcg/actuation Hfa Aerosol Inhaler 2 puff Inhalation .Q4 HOURS PRNRF: 0 ipratropium bromide 42 mcg (0.06 %) [place],Non-Aerosol 1 spray Intranasal .Q8HRS PRNRF: 0 risperidone 0.5 mg Tablet 0.5 mg PO .Q8HRS PRNRF: 0 budesonide-formoterol [Symbicort] 160-4.5 mcg/actuation Hfa Aerosol Inhaler 1 puff Inhalation DAILY RF: 0 melatonin 5 mg Tablet 5 mg PO .QHS RF: 0 cariprazine 1.5 mg Capsule 1.5 mg PO DAILY RF: 0 carbamazepine (mood stabiliz) 200 mg Capsule, Er Multiphase 12 Hr 200 mg PO BID RF: 0 glucagon (human recombinant) [Glucagon Emergency Kit (human)] 1 mg Kit 1 mg IM .Q15 MINUTES PRNRF: 0 dextrose [Glucose Gel] 40 % Gel 1 dose PO PRNRF: 0 nitroglycerin 2 % Ointment 0.25 inch Transdermal PRNRF: 0 spironolactone 50 mg Tablet 100 mg PO DAILY Qty: 0 RF: 0 Discharge Instructions Additional Instructions: Laboratory studies tonight not significantly different than yesterday. IV in place and D5 half-normal saline running. Follow-up with physician in morning. Referrals: Mariana Arias [Primary Care Provider] - Medical Decision Making IV established and D5 half-normal saline started at 125 mL's per hour. BMP sent. BMP not significantly different than yesterday. Potassium a little low so will give 20 po here. Continue fluids and send back to [facility]CF for hydration. Follow up with doctor there. Lab Data Lab results reviewed: Yes I reviewed the patient's lab results. HPI General Mode of arrival: EMS . Date/Time Provider Initiated Documentation: 05/22/18 22:16 . Information obtained by: RN/MD and old records reviewed . HPI Narrative: Patient sent to us from [facility]CF for placement of IV and hydration due to a elevated sodium on yesterday's labs. Apparently, there was nobody on staff this evening to start an IV at the long term. Labs were sent yesterday and followed up on today. Patient has been pushing p.o. fluids per long term staff. Patient herself is a poor historian and unreliable at baseline. She has history of hypernatremia, dehydration, chronic kidney disease. Related Data Home Medications Medication Instructions Recorded Confirmed acetaminophen 650 mg PO .Q4HRS PRN 18 05/22/18 albuterol sulfate [Ventolin HFA] 2 puff INHALATION .Q4 HOURS PRN 05/06/18 amlodipine 10 mg PO DAILY 05/06/18 05/22/18 ascorbic acid (vitamin C) [Vitamin 500 mg PO DAILY 05/06/18 05/22/18 C] aspirin 81 mg PO DAILY 05/06/18 05/22/18 budesonide-formoterol [Symbicort] 1 puff INHALATION DAILY 05/06/18 05/22/18 carbamazepine (mood stabiliz) 200 mg PO BID 05/06/18 05/22/18 cariprazine 1.5 mg PO DAILY 05/06/18 05/22/18 carvedilol 25 mg PO BID 05/06/18 05/22/18 citalopram 40 mg PO DAILY 05/06/18 05/22/18 dextrose [Glucose Gel] 1 dose PO PRN 05/06/18 docusate sodium [Colace] 100 mg PO BID 05/06/18 05/22/18 ferrous sulfate [Iron (ferrous 325 mg PO BID 05/06/18 05/22/18 sulfate)] glucagon (human recombinant) 1 mg IM .Q15 MINUTES PRN 05/06/18 05/06/18 [Glucagon Emergency Kit (human)] ipratropium bromide 1 spray INTRANASAL .Q8HRS PRN 05/06/18 05/06/18 isosorbide mononitrate 30 mg PO DAILY 05/06/18 05/06/18 melatonin 5 mg PO .QHS 05/06/18 05/06/18 multivitamin 1 tab PO DAILY 05/06/18 05/06/18 nitroglycerin 0.25 inch TRANSDERMAL PRN 05/06/18 omeprazole 20 mg PO DAILY 05/06/18 05/06/18 ondansetron HCl [Zofran] 4 mg PO .Q6HRS PRN 05/06/18 05/06/18 polyethylene glycol 3350 [Miralax] 17 g PO DAILY PRN 05/06/18 05/06/18 risperidone 0.5 mg PO .Q8HRS PRN 05/06/18 05/06/18 risperidone 2 mg PO DAILY 05/06/18 05/06/18 simvastatin 20 mg PO .QHS 05/06/18 05/06/18 vitamin B complex 1 tab PO DAILY 05/06/18 05/06/18 spironolactone 100 mg PO DAILY #0 tab 05/14/18 D5 %-0.45 % sodium chloride 125 ml/hr IV .continuous #1000 ml 05/22/18 IV Access 1 ea IV DIRECTED #1 insert 05/22/18 amoxicillin-pot clavulanate 1 tab PO BID 05/22/18 05/22/18 [Augmentin] Previous Rx's Medication Instructions Recorded spironolactone 100 mg PO DAILY #0 tab 05/14/18 D5 %-0.45 % sodium chloride 125 ml/hr IV .continuous #1000 ml 05/22/18 IV Access 1 ea IV DIRECTED #1 insert 05/22/18 Allergies Allergy/AdvReac Type Severity Reaction Status Date / Time pollen extracts Allergy Unknown Unverified 05/22/18 22:21 Sulfa (Sulfonamide Allergy Unknown Unverified 05/22/18 22:21 Antibiotics) sulfamethoxazole Allergy Unknown Unverified 05/22/18 22:21 [From Bactrim] trimethoprim [From Bactrim] Allergy Unknown Unverified 05/22/18 22:21 General Stated Complaint: GenMedical ADAM: 3 Review of Systems Review of Systems Unobtainable due to (unreliable historian) Exam Const General: no acute distress Nutritional Appearance: obese Orientation: alert and oriented to person HENFL Head: normocephalic and atraumatic Mouth: moist mucous membranes abnormal Resp Effort & Inspection: normal respiratory effort Auscultation: clear to auscultation bilaterally Cardio Rate: regular rate Rhythm: regular rhythm Heart Sounds: murmur GI Inspection: non-distended Palpation: soft, not firm and no guarding Skin General skin exam: no rashes or lesions noted Neuro General: alert, oriented Patient Orientation: Person, no focal motor deficits and CN's II-XI intact bilaterally Extrem General: other (LLE in knee immobilizer) Course Vital Signs Temperature 97.9 F 05/22/18 22:08 Pulse 65 05/22/18 22:08 Respiratory Rate 18 05/22/18 22:08 Blood Pressure 211/99 H 05/22/18 22:08 Temperature 97.9 F 05/22/18 22:08 Temperature Source Temporal Artery Scan 05/22/18 22:08 Pulse 65 05/22/18 22:08 Respiratory Rate 18 05/22/18 22:08 Blood Pressure 211/99 H 05/22/18 22:08 Blood Pressure Position Supine 05/22/18 22:08 Oxygen Delivery Method Room Air 05/22/18 22:08 Oxygen Flow Rate 0 05/22/18 22:08
[2018-05-22] MEDS: DEXTROSE 5%-0.45% SALINE 1,000 ML 125 ML IV (23:11)
[2018-05-22 23:22] LABS: Anion Gap 7.9 mmol/L (3-11); BUN 25 mg/dL (7-18); CO2 35.1 mmol/L (21.0-32.0); CREATININE 2.05 mg/dL (0.55-1.02); Calcium 8.3 mg/dL (8.5-10.1); Chloride 107 mmol/L (98-107); Estimated GFR 25.05 (mL/min/1.73m2); Glucose 105 mg/dL (70-100); Potassium 3.3 mmol/L (3.5-5.1); Sodium 150 mmol/L (136-145)
[2018-05-22] MEDS: Potassium Chloride 20 MEQ TABCR PO (23:47)
--- NOTE | 2018-05-22 23:49 | NUR.NOTE ---
Verbal report to Megha SHORT via Sarahi SHORT. Verbalizes understanding with no further questions Nursing Note:
[2018-05-22 23:56] VITALS: BP 135/80; PULSE 72; RESP 18; TEMP 36.9; O2SAT 99
== END 2018-05-22 23:59 | disposition skilled nursing facility (03) ==
PROVIDERS: Emergency Provider Emergency Medicine; PCP Family Medicine
DX: E87.0 Hyperosmolality and hypernatremia (principal); E87.6 Hypokalemia; N18.9 Chronic kidney disease, unspecified; I12.9 Hypertensive chronic kidney disease with stage 1 through stage 4 chronic kidney disease, or unspecified chronic kidney disease; J44.9 Chronic obstructive pulmonary disease, unspecified
CPT/HCPCS: 36415; 80048; 96360; 96361; 99284

== ENCOUNTER 2018-05-24 15:54 | Outpatient (REF) | payer MEDICARE, MEDICAID, SELFPAY ==
[2018-05-24 16:50] LABS: Anion Gap 7.1 mmol/L (3-11); BUN 22 mg/dL (7-18); CO2 35.9 mmol/L (21.0-32.0); Calcium 9.1 mg/dL (8.5-10.1); Chloride 109 mmol/L (98-107); Estimated GFR 25.77 (mL/min/1.73m2); Glucose 122 mg/dL (70-100); Potassium 3.2 mmol/L (3.5-5.1); Sodium 152 mmol/L (136-145)
== END 2018-05-24 16:14 ==
LOC: LBN 15:54
PROVIDERS: PCP Family Medicine; Visit Provider Family Medicine
DX: E87.0 Hyperosmolality and hypernatremia (principal); E11.9 Type 2 diabetes mellitus without complications; I10 Essential (primary) hypertension; N18.9 Chronic kidney disease, unspecified; E78.5 Hyperlipidemia, unspecified
CPT/HCPCS: 80048

== ENCOUNTER 2018-05-24 19:03 | Emergency (ER) | payer MEDICARE, MEDICAID, SELFPAY ==
[2018-05-24 19:03] VITALS: BP 162/70; PULSE 62; RESP 18; TEMP 36.6; O2SAT 90
--- NOTE | 2018-05-24 19:35 | W.ED.GENAD ---
Discharge Plan Disposition Patient Disposition: HOME Condition: Stable Discharge Details Chief Complaint: GenMedical Clinical Impression: Chronic hypernatremia, Chronic hypokalemia Reason For Visit: [place] Primary Care Provider: Mariana Arias ED Provider: Cesar Olivera Home Meds and New Rx's Prescriptions: New potassium chloride 40 mEq/15 mL liquid 20 meq PO DAILY 5 Days Qty: 37.5 RF: 0 No Action amoxicillin-pot clavulanate [Augmentin] 500-125 mg Tablet 1 tab PO BID RF: 0 Iv Access 1 ea IV DIRECTED Qty: 1 RF: 0 multivitamin Tablet 1 tab PO DAILY RF: 0 carvedilol 25 mg Tablet 25 mg PO BID RF: 0 acetaminophen 325 mg Tablet 650 mg PO .Q4HRS PRNRF: 0 citalopram 40 mg Tablet 40 mg PO DAILY RF: 0 polyethylene glycol 3350 [Miralax] 17 gram Powder In Packet 17 g PO DAILY PRNRF: 0 ondansetron HCl [Zofran] 4 mg Tablet 4 mg PO .Q6HRS PRNRF: 0 isosorbide mononitrate 30 mg Tablet Extended Release 24 Hr 30 mg PO DAILY RF: 0 risperidone 2 mg Tablet 2 mg PO DAILY RF: 0 ascorbic acid (vitamin C) [Vitamin C] 500 mg Tablet 500 mg PO DAILY RF: 0 amlodipine 10 mg Tablet 10 mg PO DAILY RF: 0 simvastatin 20 mg Tablet 20 mg PO .QHS RF: 0 ferrous sulfate [Iron (ferrous sulfate)] 325 mg (65 mg iron) Tablet 325 mg PO BID RF: 0 docusate sodium [Colace] 100 mg Capsule 100 mg PO BID RF: 0 omeprazole 20 mg Capsule,Delayed Release(Dr/Ec) 20 mg PO DAILY RF: 0 aspirin 81 mg Tablet,Chewable 81 mg PO DAILY RF: 0 vitamin B complex Tablet 1 tab PO DAILY RF: 0 albuterol sulfate [Ventolin HFA] 90 mcg/actuation Hfa Aerosol Inhaler 2 puff Inhalation .Q4 HOURS PRNRF: 0 ipratropium bromide 42 mcg (0.06 %) [place],Non-Aerosol 1 spray Intranasal .Q8HRS PRNRF: 0 risperidone 0.5 mg Tablet 0.5 mg PO .Q8HRS PRNRF: 0 budesonide-formoterol [Symbicort] 160-4.5 mcg/actuation Hfa Aerosol Inhaler 1 puff Inhalation DAILY RF: 0 melatonin 5 mg Tablet 5 mg PO .QHS RF: 0 cariprazine 1.5 mg Capsule 1.5 mg PO DAILY RF: 0 carbamazepine (mood stabiliz) 200 mg Capsule, Er Multiphase 12 Hr 200 mg PO BID RF: 0 glucagon (human recombinant) [Glucagon Emergency Kit (human)] 1 mg Kit 1 mg IM .Q15 MINUTES PRNRF: 0 dextrose [Glucose Gel] 40 % Gel 1 dose PO PRNRF: 0 nitroglycerin 2 % Ointment 0.25 inch Transdermal PRNRF: 0 spironolactone 50 mg Tablet 100 mg PO DAILY Qty: 0 RF: 0 Discharge Instructions Instructions: Hypokalemia (ED), Low Sodium Diet (ED), Hypernatremia (ED) Additional Instructions: Please limit any significant salt in your diet. Please drink regular free water, 8-10 cups/day. Please take the oral potassium as directed with a prompt reevaluation of your electrolytes within the next 48 hours. If you notice any worsening of your symptoms, or any new symptoms such as vomiting, diarrhea, fever, chills, shortness of breath, chest pain, numbness, weakness, or fainting , please return immediately to the emergency department for reevaluation. Please follow up with your primary care provider as soon as possible for reassessment and reevaluation. As always, it was a pleasure participating in your medical care today. Referrals: Mariana Arias [Primary Care Provider] - Medical Decision Making This is a 58-year-old female who presents from a chronic rehab facility for evaluation of electrolyte abnormalities. The rehab facility states that her sodium was high, and her potassium was low and sent her in for IV fluids. She has had no recent medication changes, no recent injuries, or any other significant changes. Of note she was sent here within the past 2-3 days for insertion of an IV. Physical exam the patient does demonstrate dry mucous membranes, but no other significant abnormalities. Rhythm strip at bedside shows no evidence of arrhythmia. Patient does have evidence of a clear history of chronic hypo-[place] and hypernatremia. Certainly do not think there is any acute etiology here tonight. We will give oral potassium with 10 mEq of IV potassium as well. Salt restriction and oral free water is the most important initial treatment with chronic hypernatremia. Within the first 15 minutes the patient readily drank 4 cups of water without any difficulty and is asking for more. We will continue to give her normal water, will recommend a salt restriction diet on an outpatient basis. After the potassium is finished I feel that she can be safely discharged home with continued management at her rehab facility for her multiple chronic conditions. 9:21 PM Patient's laboratory workup demonstrated normal white count, mild anemia which appears to be chronic with a hemoglobin of 10, platelets of 94 which is also chronic. The patient's electrolytes demonstrate a sodium of 151 which is exactly in line with her multiple chronic lab values. Potassium is 3 which is low but also in line with her chronic labs. Patient's creatinine is 2, which is also consistent and in line with her chronic creatinine. We have given her 10 mEq of IV potassium, as well as 40 mEq of oral potassium. I feel that she needs continued oral potassium on an outpatient basis. Her hypernatremia is certainly chronic and not acute. She shows no signs of seizures or other significant changes in mental status. I do feel that giving half-normal saline would be detrimental as this would certainly just equilibrate her from her chronic sodium levels. We did give her 10-12 cups of normal water which she drank vigorously. She tolerated p.o. extremely well. I feel that she would benefit from salt restriction, and regular free water oral intake on an outpatient basis. We called [facility] times to [facility], however we are unable to speak with anyone. We sent the over to [facility] and he did see 2 employees sitting out back smoking, and told them that they needed to call the ER. The patient has been here for over 2 hours and we have still not received a call back. Patient will be sent back via EMS for continued management. Clear discharge instructions will be printed. HPI General Date/Time Provider Initiated Documentation: 05/24/18 19:20. HPI Narrative: This is a 58-year-old female with developmental delay, left medial tibial plateau fracture, history of healthcare associated pneumonia on regular Augmentin, diabetes, chronic renal insufficiency, bipolar disorder, chronic hypokalemia, chronic hyponatremia, obstructive sleep apnea, mental retardation, obesity, who takes a daily aspirin, as well as a plethora of other medications. She presents today for evaluation of electrolyte abnormalities. Per her care facility she had labs drawn and her potassium was low and her sodium was high. They sent her in for IV access, and management of her electrolytes. They deny any other changes for the patient recently, denies any traumas, change in medications, or other abnormalities. Patient has no complaints at this time secondary to her chronic mental status. Of note upon review of her labs they do appear consistent with her previous labs on multiple visits with chronic hyponatremia and chronic hypokalemia. Of note she is on spironolactone. Related Data Home Medications Medication Instructions Recorded Confirmed acetaminophen 650 mg PO .Q4HRS PRN 05/06/18 05/24/18 albuterol sulfate [Ventolin HFA] 2 puff INHALATION .Q4 HOURS PRN 05/06/18 05/24/18 amlodipine 10 mg PO DAILY 05/06/18 05/24/18 ascorbic acid (vitamin C) [Vitamin 500 mg PO DAILY 05/06/18 05/24/18 C] aspirin 81 mg PO DAILY 05/06/18 05/24/18 budesonide-formoterol [Symbicort] 1 puff INHALATION DAILY 05/06/18 05/24/18 carbamazepine (mood stabiliz) 200 mg PO BID 05/06/18 05/24/18 cariprazine 1.5 mg PO DAILY 05/06/18 05/22/18 carvedilol 25 mg PO BID 05/06/18 05/24/18 citalopram 40 mg PO DAILY 05/06/18 05/24/18 dextrose [Glucose Gel] 1 dose PO PRN 05/06/18 docusate sodium [Colace] 100 mg PO BID 05/06/18 05/24/18 ferrous sulfate [Iron (ferrous 325 mg PO BID 05/06/18 05/24/18 sulfate)] glucagon (human recombinant) 1 mg IM .Q15 MINUTES PRN 05/06/18 05/24/18 [Glucagon Emergency Kit (human)] ipratropium bromide 1 spray INTRANASAL .Q8HRS PRN 05/06/18 05/24/18 isosorbide mononitrate 30 mg PO DAILY 05/06/18 05/24/18 melatonin 5 mg PO .QHS 05/06/18 05/24/18 multivitamin 1 tab PO DAILY 05/06/18 05/24/18 nitroglycerin 0.25 inch TRANSDERMAL PRN 05/06/18 omeprazole 20 mg PO DAILY 05/06/18 05/24/18 ondansetron HCl [Zofran] 4 mg PO .Q6HRS PRN 05/06/18 05/24/18 polyethylene glycol 3350 [Miralax] 17 g PO DAILY PRN 05/06/18 05/24/18 risperidone 0.5 mg PO .Q8HRS PRN 05/06/18 05/24/18 risperidone 2 mg PO DAILY 05/06/18 05/24/18 simvastatin 20 mg PO .QHS 05/06/18 05/24/18 vitamin B complex 1 tab PO DAILY 05/06/18 05/24/18 spironolactone 100 mg PO DAILY #0 tab 05/14/18 05/24/18 IV Access 1 ea IV DIRECTED #1 insert 05/22/18 amoxicillin-pot clavulanate 1 tab PO BID 05/22/18 05/24/18 [Augmentin] potassium chloride 20 meq PO DAILY 5 Days #37.5 ml 05/24/18 Previous Rx's Medication Instructions Recorded spironolactone 100 mg PO DAILY #0 tab 05/14/18 IV Access 1 ea IV DIRECTED #1 insert 05/22/18 potassium chloride 20 meq PO DAILY 5 Days #37.5 ml 05/24/18 Allergies Allergy/AdvReac Type Severity Reaction Status Date / Time pollen extracts Allergy Unknown Unverified 05/24/18 19:06 Sulfa (Sulfonamide Allergy Unknown Unverified 05/24/18 19:06 Antibiotics) sulfamethoxazole Allergy Unknown Unverified 05/24/18 19:06 [From Bactrim] trimethoprim [From Bactrim] Allergy Unknown Unverified 05/24/18 19:06 General Stated Complaint: GenMedical ADAM: 3 Review of Systems Review of Systems All systems reviewed & are unremarkable except as noted in HPI and below Exam Narrative Exam Narrative: 1.Const: Well-nourished, Well-developed, appearing stated age, obese 2.Eyes: PERRL, no conjunctival injection, and symmetrical lids. 3.ENT: Atraumatic external nose and ears. Notably dry MM. Neck: Symmetric, trachea midline, No thyromegaly. 4.CVS: +S1/S2, No murmurs or gallops. Peripheral pulses 2+ and equal in all extremities. Brisk capillary refill in all extremities. 5.RESP: Unlabored respiratory effort. Clear to auscultation bilaterally. No wheezes rales or rhonchi 6.GI: Soft, Nontender/Nondistended, No hepatosplenomegaly. No guarding or rebound. 7.MSK: Normocephalic/Atraumatic, Extremities w/o deformity. Patient does have a large brace on her left lower extremity, however removal this brace demonstrates no significant deformity or signs of major injury no cyanosis or clubbing 8.Skin: Warm, Dry. No rashes or lesions. 9.Neuro: no focal neurologic deficits. At patient's baseline Course Vital Signs Temperature 36.6 C 05/24/18 19:03 Pulse 62 05/24/18 19:03 Respiratory Rate 18 05/24/18 19:03 Blood Pressure 162/70 H 05/24/18 19:03 Pulse Oximetry 90 L 05/24/18 19:03 Temperature 36.6 C 05/24/18 19:03 Temperature Source Temporal Artery Scan 05/24/18 19:03 Pulse 62 05/24/18 19:03 Respiratory Rate 18 05/24/18 19:03 Blood Pressure 162/70 H 05/24/18 19:03 Pulse Oximetry 90 L 05/24/18 19:03 Oxygen Delivery Method Nasal Cannula 05/24/18 19:03 Oxygen Flow Rate 2 05/24/18 19:03
[2018-05-24] MEDS: Potassium Chloride 20 MEQ TABCR 40 MEQ PO (19:41)
[2018-05-24 19:46] LABS: Abs Immature Grans 0.04 k/cumm (0.0-0.09); Absolute Basophil Count 0.02 k/cumm (0.0-0.2); Absolute Eosinophil Count 0.17 k/cumm (0.0-0.7); Absolute Lymphocyte Count 0.72 k/cumm (1.2-3.4); Absolute Monocyte Count 0.31 k/cumm (0.11-0.7); Absolute Neutrophil Count 4.36 k/cumm (1.2-6.7); Basophils % 0.4; HCT 31.9 % (36.0-46.0); Immature Grans % 0.7; Lymphocytes % 12.8; Mean Corp. HGB Concentration 31.3 g/dL (32.0-36.0); Mean Corpuscular Hemoglobin 31.9 pg (27.0-33.0); Mean Corpuscular Volume 101.9 fL (80-95); Mean Platelet Volume 10.9 fL (8.0-11.0); Monocytes % 5.5; Neutrophils % 77.6; RBC 3.13 m/cumm (4.00-5.20); RBC Distribution Width 13.3 % (11.7-14.6); White Blood Cell Count 5.62 k/cumm (4.4-10.8)
[2018-05-24 19:49] LABS: ALT 20 U/L (12-78); AST 10 U/L (15-37); Albumin 3.1 g/dL (3.4-5.0); Alkaline Phosphatase 92 U/L (46-116); Anion Gap 5.3 mmol/L (3-11); BUN 22 mg/dL (7-18); Bilirubin, Total 0.3 mg/dL (0.2-1.0); CO2 36.7 mmol/L (21.0-32.0); CREATININE 2.09 mg/dL (0.55-1.02); Calcium 9.1 mg/dL (8.5-10.1); Chloride 109 mmol/L (98-107); Glucose 169 mg/dL (70-100); Sodium 151 mmol/L (136-145); Total Protein 5.5 g/dL (6.4-8.2)
[2018-05-24 20:03] LABS: Diff Comment PLT Morph Reviewed; Macrocytosis 2+; Platelet Count 94 x1000/uL (130-400)
[2018-05-24] MEDS: POTASSIUM CHLORIDE 10 MEQ/100 ML BAG 100 MEQ IVPB (20:08)
[2018-05-24 21:36] VITALS: BP 162/70; PULSE 62; RESP 18; TEMP 36.6; O2SAT 90
== END 2018-05-24 21:36 | disposition home or self-care (01) ==
PROVIDERS: Emergency Provider Student in an Organized Health Care Education/Training Program; PCP Family Medicine
DX: E87.6 Hypokalemia (principal); E87.0 Hyperosmolality and hypernatremia; E11.22 Type 2 diabetes mellitus with diabetic chronic kidney disease; J44.9 Chronic obstructive pulmonary disease, unspecified; I12.9 Hypertensive chronic kidney disease with stage 1 through stage 4 chronic kidney disease, or unspecified chronic kidney disease; N18.9 Chronic kidney disease, unspecified
CPT/HCPCS: 36415; 80053; 96365; 99284; 83735; 85025; J3480

== ENCOUNTER 2018-05-27 13:50 | Outpatient (REF) | payer MEDICARE, MEDICAID, SELFPAY ==
[2018-05-27 14:22] LABS: Anion Gap 6.5 mmol/L (3-11); BUN 16 mg/dL (7-18); CO2 37.5 mmol/L (21.0-32.0); Calcium 8.8 mg/dL (8.5-10.1); Chloride 103 mmol/L (98-107); Estimated GFR 27.34 (mL/min/1.73m2); Glucose 188 mg/dL (70-100); Sodium 147 mmol/L (136-145)
== END 2018-05-27 14:10 ==
LOC: LBN 13:50
PROVIDERS: PCP Family Medicine; Visit Provider Family Medicine
DX: D82.8 Immunodeficiency associated with other specified major defects (principal); J18.9 Pneumonia, unspecified organism; E78.5 Hyperlipidemia, unspecified; I10 Essential (primary) hypertension; N18.9 Chronic kidney disease, unspecified
CPT/HCPCS: 80048

== ENCOUNTER 2018-06-30 11:20 | Outpatient (CLI) | payer MEDICARE, MEDICAID, SELFPAY ==
--- NOTE | 2018-06-30 11:17 | DI.RAD_ITS ---
SYMPTOMS/DIAGNOSIS: LT MEDIAL TIBIA FRACTURE LEFT KNEE: When compared with the previous images, again noted is the comminuted depressed fracture of the medial tibial plateau. There has been no evident interval change when compared with the previous study of 05/31/18.
== END 2018-06-30 11:40 ==
PROVIDERS: PCP Family Medicine; Visit Provider Student in an Organized Health Care Education/Training Program
DX: S82.132D Displaced fracture of medial condyle of left tibia, subsequent encounter for closed fracture with routine healing (principal); X58.XXXD Exposure to other specified factors, subsequent encounter
CPT/HCPCS: 99213; 73560

== ENCOUNTER 2018-07-02 07:12 | Outpatient (REF) | payer MEDICARE, MEDICAID, SELFPAY ==
[2018-07-02 10:06] LABS: Anion Gap 6.9 mmol/L (3-11); BUN 32 mg/dL (7-18); CO2 34.1 mmol/L (21.0-32.0); Calcium 9.2 mg/dL (8.5-10.1); Chloride 109 mmol/L (98-107); Estimated GFR 16.79 (mL/min/1.73m2); Glucose 122 mg/dL (70-100); Potassium 3.7 mmol/L (3.5-5.1); Sodium 150 mmol/L (136-145)
== END 2018-07-02 07:32 ==
LOC: LBN 07:12
PROVIDERS: PCP Family Medicine; Visit Provider Family Medicine
DX: N18.9 Chronic kidney disease, unspecified (principal); E11.9 Type 2 diabetes mellitus without complications; E78.5 Hyperlipidemia, unspecified; D64.9 Anemia, unspecified
CPT/HCPCS: 36415; 80048

== ENCOUNTER 2018-07-14 15:22 | Outpatient (CLI) | payer MEDICARE, MEDICAID, SELFPAY ==
[2018-07-14 16:48] LABS: Anion Gap 6.8 mmol/L (3-11); BUN 34 mg/dL (7-18); CO2 30.2 mmol/L (21.0-32.0); CREATININE 3.22 mg/dL (0.55-1.02); Calcium 9.2 mg/dL (8.5-10.1); Chloride 111 mmol/L (98-107); Estimated GFR 14.88 (mL/min/1.73m2); Glucose 112 mg/dL (70-100); Potassium 4.9 mmol/L (3.5-5.1); Sodium 148 mmol/L (136-145)
== END 2018-07-14 15:42 ==
PROVIDERS: PCP Family Medicine; Visit Provider Family Medicine
DX: I10 Essential (primary) hypertension (principal); E11.9 Type 2 diabetes mellitus without complications; D64.9 Anemia, unspecified; E78.5 Hyperlipidemia, unspecified; N18.9 Chronic kidney disease, unspecified
CPT/HCPCS: 36416; 80048

== ENCOUNTER 2018-07-23 13:42 | Outpatient (REF) | payer MEDICARE, MEDICAID, SELFPAY ==
[2018-07-23 15:18] LABS: Anion Gap 5.5 mmol/L (3-11); BUN 34 mg/dL (7-18); CO2 33.5 mmol/L (21.0-32.0); CREATININE 3.19 mg/dL (0.55-1.02); Calcium 8.6 mg/dL (8.5-10.1); Chloride 107 mmol/L (98-107); Estimated GFR 15.04 (mL/min/1.73m2); Glucose 113 mg/dL (70-100); Potassium 4.3 mmol/L (3.5-5.1); Sodium 146 mmol/L (136-145); TROPONIN-I 8.3 ug/mL (4.0-12.0)
== END 2018-07-23 14:02 ==
LOC: LBN 13:42
PROVIDERS: PCP Family Medicine; Visit Provider Family Medicine
DX: N18.9 Chronic kidney disease, unspecified (principal); E78.5 Hyperlipidemia, unspecified; I10 Essential (primary) hypertension; F31.30 Bipolar disorder, current episode depressed, mild or moderate severity, unspecified; Z79.899 Other long term (current) drug therapy; Z51.81 Encounter for therapeutic drug level monitoring
CPT/HCPCS: 36415; 80048; 80156

== ENCOUNTER → 2018-08-09 14:06 | Outpatient (BNVA) | payer MEDICARE, MEDICAID, SELFPAY | PROVIDERS: PCP Family Medicine; Referring Provider Family Medicine; Visit Provider Student in an Organized Health Care Education/Training Program | DX: S82.132D Displaced fracture of medial condyle of left tibia, subsequent encounter for closed fracture with routine healing (principal); X58.XXXD Exposure to other specified factors, subsequent encounter; Z79.899 Other long term (current) drug therapy | CPT/HCPCS: 99213 ==

== ENCOUNTER 2018-08-31 14:24 | Outpatient (CLI) | payer MEDICARE, MEDICAID, SELFPAY ==
[2018-08-31 15:23] LABS: Abs Immature Grans 0.01 k/cumm (0.0-0.09); Absolute Basophil Count 0.02 k/cumm (0.0-0.2); Absolute Lymphocyte Count 0.76 k/cumm (1.2-3.4); Absolute Monocyte Count 0.35 k/cumm (0.11-0.7); Absolute Neutrophil Count 3.93 k/cumm (1.2-6.7); Basophils % 0.4; Eosinophils % 1.9; HCT 28.9 % (36.0-46.0); HGB 8.7 g/dL (12.0-15.5); Immature Grans % 0.2; Lymphocytes % 14.7; Mean Corp. HGB Concentration 30.1 g/dL (32.0-36.0); Mean Corpuscular Volume 106.3 fL (80-95); Monocytes % 6.8; RBC 2.72 m/cumm (4.00-5.20); RBC Distribution Width 16.4 % (11.7-14.6); White Blood Cell Count 5.17 k/cumm (4.4-10.8)
[2018-08-31 15:57] LABS: Anisocytosis 1+; Diff Comment RBC Morph Reviewed; Platelet Count 90 x1000/uL (130-400)
[2018-08-31 17:26] LABS: Anion Gap 7.5 mmol/L (3-11); BUN 34 mg/dL (7-18); CO2 35.5 mmol/L (21.0-32.0); Calcium 8.2 mg/dL (8.5-10.1); Chloride 106 mmol/L (98-107); Estimated GFR 12.48 (mL/min/1.73m2); Glucose 125 mg/dL (70-100); Potassium 3.7 mmol/L (3.5-5.1); Sodium 149 mmol/L (136-145)
[2018-08-31 18:10] LABS: CREATININE 3.75 mg/dL (0.55-1.02)
== END 2018-08-31 14:44 ==
PROVIDERS: PCP Family Medicine; Visit Provider Family Medicine
DX: D64.9 Anemia, unspecified (principal); N18.9 Chronic kidney disease, unspecified
CPT/HCPCS: 36415; 80048; 85025

== ENCOUNTER 2018-09-01 08:24 | Emergency (ER) | payer MEDICARE, MEDICAID, SELFPAY ==
[2018-09-01 08:25] VITALS: PULSE 59; RESP 16; TEMP 36.6; O2SAT 90
--- NOTE | 2018-09-01 09:05 | W.ED.GENAD ---
Discharge Plan Disposition Patient Disposition: SNF (LEVEL 1) [facility] Condition: Stable Discharge Details Chief Complaint: GenMedical Clinical Impression: Acute on chronic kidney failure, Chronic hypernatremia, Acute UTI Reason For Visit: TYRAEX Primary Care Provider: Mariana Arias ED Provider: Krysten Rodriguez Home Meds and New Rx's Prescriptions: New cephalexin [Keflex] 500 mg capsule 500 mg PO BID Qty: 13 RF: 0 Continued quetiapine [Seroquel] 25 mg Tablet 25 mg PO TID RF: 0 furosemide 40 mg Tablet 40 mg PO DAILY RF: 0 ipratropium-albuterol 0.5 mg-3 mg(2.5 mg base)/3 mL Solution For Nebulization 3 ml INHALATION QID PRNRF: 0 carbamazepine 200 mg Tablet 400 mg PO DAILY RF: 0 lorazepam 0.5 mg Tablet 0.5 mg PO BID PRNRF: 0 potassium chloride 40 mEq/15 mL Liquid 40 meq PO DAILY RF: 0 hydralazine 50 mg Tablet 50 mg PO TID RF: 0 carvedilol 25 mg Tablet 25 mg PO BID RF: 0 acetaminophen 325 mg Tablet 650 mg PO .Q4HRS PRNRF: 0 citalopram 40 mg Tablet 40 mg PO DAILY RF: 0 polyethylene glycol 3350 [Miralax] 17 gram Powder In Packet 17 g PO DAILY PRNRF: 0 ondansetron HCl [Zofran] 4 mg Tablet 4 mg PO .Q6HRS PRNRF: 0 isosorbide mononitrate 30 mg Tablet Extended Release 24 Hr 30 mg PO DAILY RF: 0 risperidone 2 mg Tablet 2 mg PO DAILY RF: 0 ascorbic acid (vitamin C) [Vitamin C] 500 mg Tablet 500 mg PO DAILY RF: 0 amlodipine 10 mg Tablet 10 mg PO DAILY RF: 0 simvastatin 20 mg Tablet 20 mg PO .QHS RF: 0 ferrous sulfate [Iron (ferrous sulfate)] 325 mg (65 mg iron) Tablet 325 mg PO BID RF: 0 docusate sodium [Colace] 100 mg Capsule 100 mg PO BID RF: 0 omeprazole 20 mg Capsule,Delayed Release(Dr/Ec) 20 mg PO DAILY RF: 0 aspirin 81 mg Tablet,Chewable 81 mg PO DAILY RF: 0 ipratropium bromide 42 mcg (0.06 %) Clare,Non-Aerosol 1 spray Intranasal .Q8HRS PRNRF: 0 Symbicort 160-4.5 mcg/actuation Hfa Aerosol Inhaler 1 puff Inhalation DAILY RF: 0 melatonin 5 mg Tablet 3 mg PO .QHS RF: 0 cariprazine 1.5 mg Capsule 1.5 mg PO DAILY RF: 0 carbamazepine (mood stabiliz) 200 mg Capsule, Er Multiphase 12 Hr 200 mg PO BID RF: 0 Glucagon Emergency Kit (human) 1 mg Kit 1 mg IM .Q15 MINUTES PRNRF: 0 dextrose [Glucose Gel] 40 % Gel 1 dose PO PRNRF: 0 Discharge Instructions Instructions: Dehydration (ED), Acute Kidney Injury (GEN), Urinary Tract Infection in Women (ED), Chronic Kidney Disease (ED), Hypernatremia (ED) Additional Instructions: Please return immediately to the emergency department if you develop any new or worsening symptoms or if you become otherwise concerned. Referrals: Mariana Arias [Primary Care Provider] - Medical Decision Making Tona Queen is a 58-year-old woman with history of hypertension, CKD status post nephrectomy, cognitive deficit, bipolar, coronary artery disease, diabetes, hyperlipidemia presenting to the emergency department with sodium of 149 and a creatinine of 3.75 found on labs that were drawn yesterday, creatinine increased from 3.19 on 07/23/18, patient without complaint. On exam patient is not cooperative with medical care. She states repeatedly that she wants to go home. When asked if we can take her blood pressure, place an IV, patient states no, no, I do not want anything, I want to go home. I did speak with Dr. Sanchez twice about this patient, who reports the patient is mental status is at baseline for her. At this point, her labs and vital signs do not represent an acute emergency. She is clearly in need of hydration, although it seems this may be able to be accomplished without an IV. I am concerned that forcing the patient to have an IV or to be given intramuscular or non-PO medications against her wishes would represent assault at this point. Patient is a collier of the [facility]. Her guardian, Joe Mcghee was contacted, and is on route. I did also consult Dr. Colon of palliative care, as I am concerned about goals of care for this patient. At this time, plan for p.o. hydration, p.o. Haldol if patient accepts. Patient did eat a popsicle here without issue. Pt accepted PO haldol. Allowed blood pressure, pulse ox, both normal. Tona Mcghee at bedside. Pt accepting IV placement. Will send labs. At [address] I [address] patient [address] Dr[address] Benítez, patient's licensed practical nurse instructor at [employer]. She recommended 1 L of D5 water at 100cc/h, repeat sodium after completed tomorrow am. Also recommend allowing patient to drink. We will also obtain UA, chest x-ray. Patient's guardian reports that patient having decreased appetite and p.o. intake is not at all unusual for her. She has been through multiple similar episodes in the past, that did not have an apparent cause. She reports that patient has bipolar with some obsessive behavior, and this obsessive behavior seems to distract her from eating and drinking. She requires frequent one-to-one contact to help her drink enough fluids during the day. This makes other acute process a less likely etiology of her failure to thrive and decreased p.o. intake over the past few days. EKG shows T wave inversions V1 through V4, previously only present V1 to V2. Unlikely ACS is contributing factor given patient without cardiopulmonary complaints, however will send troponin. Troponin neg. x-ray shows pulmonary edema versus infiltrate. As patient with no clinical pneumonia and known CHF, no treatment for pneumonia at this time. UA consistent with UTI. Plan to treat with Keflex. Patient has been drinking water here without issue. I had a lengthy discussion about patient with Dr. Sanchez, admit here versus return to [facility] for IV fluids and repeat labs in the morning. Given patient feeling very uncomfortable in new environment and wishing to return to health and rehab no intervention planned at this time aside from IV fluids and repeat a.m. labs, I believe that the best course for the patient would be to return to [facility]. Discussed plan for continued D5 water, total of 1 L at 100 cc/h with repeat labs in the morning. Dr. Sanchez is amenable to the plan. Medical Records Medical records reviewed: Yes I reviewed the patient's medical records. Imaging Data Radiologic Study: Attestation: I personally reviewed and interpreted this imaging study as follows: Radiologist's impression: PORTABLE AP CHEST: Comparison is made with 05/18/18. The heart appears mildly enlarged. There are bilateral pulmonary infiltrates present, predominantly in the perihilar region. There is blunting of the left costophrenic angle raising the question of a small pleural effusion. The bones appear intact. IMPRESSION: CHF versus multi focal pneumonia. Please correlate clinically. Lab Data Lab results reviewed: Yes I reviewed the patient's lab results. 09/01/18 12:29 Urine - Reflex from Ua Urine Culture - Pending Laboratory Tests Range/Units 09/01/18 09/01/18 09/01/18 10:30 10:30 10:30 WBC (4.4-10.8) k/cumm 5.10 RBC (4.00-5.20) m/cumm 2.84 L Hgb (12.0-15.5) g/dL 9.2 L Hct (36.0-46.0) % 30.4 L MCV (80-95) fL 107.0 H MCH (27.0-33.0) pg 32.4 MCHC (32.0-36.0) g/dL 30.3 L RDW (11.7-14.6) % 16.5 H Plt Count (130-400) x1000/uL 81 L MPV (8.0-11.0) fL 11.0 Immature Gran % 0.4 Neutrophils % 76.8 Lymphocytes % 14.1 Monocytes % 6.3 Eosinophils % 2.2 Basophils % 0.2 Absolute Neutrophils (1.2-6.7) k/cumm 3.92 Absolute Lymphocytes (1.2-3.4) k/cumm 0.72 L Absolute Monocytes (0.11-0.7) k/cumm 0.32 Absolute Eosinophils (0.0-0.7) k/cumm 0.11 Absolute Basophils (0.0-0.2) k/cumm 0.01 Differential Comment Rbc morph reviewed RBC Morphology See below Polychromasia Present Hypochromasia 1+ Anisocytosis 1+ Macrocytosis 2+ Sodium (136-145) mmol/L 149 H Potassium (3.5-5.1) mmol/L 3.4 L Chloride (98-107) mmol/L 107 Carbon Dioxide (21.0-32.0) mmol/L 35.6 H Anion Gap (3-11) mmol/L 6.4 BUN (7-18) mg/dL 35 H Creatinine (0.55-1.02) mg/dL 3.96 H* Estimated GFR/1.73 m2 (mL/min/1.73m2) 11.72 Glucose (70-100) mg/dL 93 Calcium (8.5-10.1) mg/dL 8.7 Total Bilirubin (0.2-1.0) mg/dL 0.3 AST (15-37) U/L 9 L ALT (12-78) U/L 15 Alkaline Phosphatase (46-116) U/L 111 Troponin I (0.00-0.06) ng/mL < 0.02 NT-Pro-B Natriuret Pep ( - 299) pg/mL 40550 H Total Protein (6.4-8.2) g/dL 5.3 L Albumin (3.4-5.0) g/dL 2.9 L Urine Color (Yellow) Urine Clarity Urine pH (5-8) Ur Specific [place] (1.005-1.025) Urine Protein (Negative) mg/dL Urine Ketones (Negative) mg/dL Urine Blood (Negative) Urine Nitrite (Negative) Urine Bilirubin (Negative) Urine Urobilinogen (Up TO 0.2) EU/dL Ur Leukocyte Esterase (Negative) Urine RBC Urine WBC (0-5) HPF Ur Epithelial Cells (Negative) HPF Urine Crystals Urine Bacteria (Negative) HPF Urine Mucus Ur Culture Indicated? Urine Glucose (Negative) mg/dL Range/Units 09/01/18 09/01/18 11:05 12:29 WBC (4.4-10.8) k/cumm RBC (4.00-5.20) m/cumm Hgb (12.0-15.5) g/dL Hct (36.0-46.0) % MCV (80-95) fL MCH (27.0-33.0) pg MCHC (32.0-36.0) g/dL RDW (11.7-14.6) % Plt Count (130-400) x1000/uL MPV (8.0-11.0) fL Immature Gran % Neutrophils % Lymphocytes % Monocytes % Eosinophils % Basophils % Absolute Neutrophils (1.2-6.7) k/cumm Absolute Lymphocytes (1.2-3.4) k/cumm Absolute Monocytes (0.11-0.7) k/cumm Absolute Eosinophils (0.0-0.7) k/cumm Absolute Basophils (0.0-0.2) k/cumm Differential Comment RBC Morphology Polychromasia Hypochromasia Anisocytosis Macrocytosis Sodium (136-145) mmol/L Potassium (3.5-5.1) mmol/L Chloride (98-107) mmol/L Carbon Dioxide (21.0-32.0) mmol/L Anion Gap (3-11) mmol/L BUN (7-18) mg/dL Creatinine (0.55-1.02) mg/dL Estimated GFR/1.73 m2 (mL/min/1.73m2) Glucose (70-100) mg/dL Calcium (8.5-10.1) mg/dL Total Bilirubin (0.2-1.0) mg/dL AST (15-37) U/L ALT (12-78) U/L Alkaline Phosphatase (46-116) U/L Troponin I (0.00-0.06) ng/mL Cancelled NT-Pro-B Natriuret Pep ( - 299) pg/mL Total Protein (6.4-8.2) g/dL Albumin (3.4-5.0) g/dL Urine Color (Yellow) Yellow Urine Clarity Clear Urine pH (5-8) 6.5 Ur Specific [place] (1.005-1.025) 1.015 Urine Protein (Negative) mg/dL Negative Urine Ketones (Negative) mg/dL Negative Urine Blood (Negative) Negative Urine Nitrite (Negative) Positive H Urine Bilirubin (Negative) Negative Urine Urobilinogen (Up TO 0.2) EU/dL 0.2 Ur Leukocyte Esterase (Negative) Small H Urine RBC Not Applicable Urine WBC (0-5) HPF >50 Ur Epithelial Cells (Negative) HPF Rare Urine Crystals Not Applicable Urine Bacteria (Negative) HPF Many Urine Mucus Not Applicable Ur Culture Indicated? Yes Urine Glucose (Negative) mg/dL Negative ECG Data Attestation: I personally reviewed and interpreted this ECG (s) as follows: Interpretation: EKG shows sinus bradycardia at 55, right axis, T wave inversions V1 to V4. T wave inversion seen on prior 05/06/18 in V1 and V2. No STEMI. Nondiagnostic EKG HPI General Mode of arrival: EMS. Date/Time Provider Initiated Documentation: 09/01/18 08:33. Limitations to Documentation: physical limitation. Information obtained by: patient, RN/MD, RN notes reviewed and old records reviewed. HPI Narrative: Tona Queen is a 58-year-old woman with history of cognitive deficit, status post nephrectomy with chronic kidney disease, hypertension, diabetes, hyperlipidemia presenting to the emergency department with sodium of 149 and creatinine of 3.75 up from 3.2 on 07/23. Labs were drawn yesterday. Patient is stating repeatedly that she wants to go home. She denies having any pain, shortness of breath, nausea. When asked if we can place an IV patient repeatedly states, no I want to go home. I have spoken with Dr. Sanchez at [facility] twice regarding this patient. Dr. Sanchez has concern that patient is having difficulty hydrating at the rehab facility, due to intermittent refusing to eat or drink.. She states that the patient's mental status is currently at baseline for her, as patient has days that are more combative than others typically. She has not noticed the patient complaining of other symptoms, and there have not been other signs of illness other than dry mucous membranes. Related Data Home Medications Medication Instructions Recorded Confirmed Glucagon Emergency Kit (human) 1 mg IM .Q15 MINUTES PRN 05/06/18 09/01/18 Symbicort 1 puff INHALATION DAILY 05/06/18 09/01/18 acetaminophen 650 mg PO .Q4HRS PRN 05/06/18 09/01/18 amlodipine 10 mg PO DAILY 05/06/18 09/01/18 ascorbic acid (vitamin C) [Vitamin 500 mg PO DAILY 05/06/18 09/01/18 C] aspirin 81 mg PO DAILY 05/06/18 09/01/18 carbamazepine (mood stabiliz) 200 mg PO BID 05/06/18 09/01/18 cariprazine 1.5 mg PO DAILY 05/06/18 09/01/18 carvedilol 25 mg PO BID 05/06/18 09/01/18 citalopram 40 mg PO DAILY 05/06/18 09/01/18 dextrose [Glucose Gel] 1 dose PO PRN 05/06/18 06/30/18 docusate sodium [Colace] 100 mg PO BID 05/06/18 09/01/18 ferrous sulfate [Iron (ferrous 325 mg PO BID 05/06/18 09/01/18 sulfate)] ipratropium bromide 1 spray INTRANASAL .Q8HRS PRN 05/06/18 09/01/18 isosorbide mononitrate 30 mg PO DAILY 05/06/18 09/01/18 melatonin 3 mg PO .QHS 05/06/18 09/01/18 omeprazole 20 mg PO DAILY 05/06/18 09/01/18 ondansetron HCl [Zofran] 4 mg PO .Q6HRS PRN 05/06/18 09/01/18 polyethylene glycol 3350 [Miralax] 17 g PO DAILY PRN 05/06/18 09/01/18 risperidone 2 mg PO DAILY 05/06/18 09/01/18 simvastatin 20 mg PO .QHS 05/06/18 09/01/18 carbamazepine 400 mg PO DAILY 09/01/18 09/01/18 cephalexin [Keflex] 500 mg PO BID #13 cap 09/01/18 furosemide 40 mg PO DAILY 09/01/18 09/01/18 hydralazine 50 mg PO TID 09/01/18 09/01/18 ipratropium-albuterol 3 ml INHALATION QID PRN 09/01/18 09/01/18 lorazepam 0.5 mg PO BID PRN 09/01/18 09/01/18 potassium chloride 40 meq PO DAILY 09/01/18 09/01/18 quetiapine [Seroquel] 25 mg PO TID 09/01/18 09/01/18 Previous Rx's Medication Instructions Recorded cephalexin [Keflex] 500 mg PO BID #13 cap 09/01/18 Allergies Allergy/AdvReac Type Severity Reaction Status Date / Time pollen extracts Allergy Unknown Unverified 09/01/18 08:53 Sulfa (Sulfonamide Allergy Unknown Unverified 09/01/18 08:53 Antibiotics) sulfamethoxazole Allergy Unknown Unverified 09/01/18 08:53 [From Bactrim] trimethoprim [From Bactrim] Allergy Unknown Unverified 09/01/18 08:53 General ADAM: 3 Review of Systems Review of Systems Review of systems provided by patient and by Dr. Sanchez Constitutional: denies fevers Eyes: denies eye pain ENT: denies facial pain, dental pain, sore throat Cardiovascular: denies chest pain, edema Respiratory: denies SOB, cough GI: denies abdominal pain, vomiting, diarrhea : denies flank pain MSK: denies back pain, neck pain, arthralgias, myalgias Skin: denies rash Neuro: denies headaches [facility] Medical History Hypernatremia (Acute) Healthcare-associated pneumonia (Acute) HTN (hypertension) (Chronic) Chronic renal insufficiency (Acute) Diabetes type 2, controlled (Chronic) Bipolar 1 disorder, depressed, severe (Chronic) Hypokalemia (Resolved) Tibial plateau fracture, left (Acute ~03/2018) MIGUEL ANGEL (obstructive sleep apnea) (Chronic) Ischemic heart disease (Chronic) Mental retardation (Chronic) Anemia (Chronic) Obesity (Chronic) HLD (hyperlipidemia) (Chronic) Hemorrhoids (Resolved) Social History housing: skilled nursing Smoking/Tobacco Use Status: Never Exam Narrative Exam Narrative: Constitutional: chronically-ill appearing, stating repeatedly, No, I want to go home HENT: head atraumatic, normocephalic normal inspection, mucous membranes dry Eyes: conjunctiva normal, sclera normal, pupils 3mm b/l Neck: no stridor, normal ROM, trachea midline Chest: normal inspection Resp: normal work of breathing, LCTAB Cardio: normal rate, normal rhythm, no murmur appreciated GI: abdomen soft, non-tender, non-distended Skin: warm, dry, normal color, no rash Neuro: alert, not altered, grossly non-focal, normal tone Ext: no edema Psych: flat affect
[2018-09-01 09:07] VITALS: PULSE 80; RESP 20; TEMP 36.6
[2018-09-01] MEDS: Haloperidol 1 MG TAB (09:19)
[2018-09-01 10:17] VITALS: BP 132/62
[2018-09-01 10:24] VITALS: O2SAT 96
[2018-09-01] MEDS: DEXTROSE 5%-WATER 1,000 ML 100 ML IV (10:45)
[2018-09-01 10:46] LABS: Abs Immature Grans 0.02 k/cumm (0.0-0.09); Absolute Basophil Count 0.01 k/cumm (0.0-0.2); Absolute Eosinophil Count 0.11 k/cumm (0.0-0.7); Absolute Lymphocyte Count 0.72 k/cumm (1.2-3.4); Absolute Monocyte Count 0.32 k/cumm (0.11-0.7); Absolute Neutrophil Count 3.92 k/cumm (1.2-6.7); Basophils % 0.2; Eosinophils % 2.2; HCT 30.4 % (36.0-46.0); HGB 9.2 g/dL (12.0-15.5); Immature Grans % 0.4; Lymphocytes % 14.1; Mean Corp. HGB Concentration 30.3 g/dL (32.0-36.0); Mean Corpuscular Hemoglobin 32.4 pg (27.0-33.0); Monocytes % 6.3; Neutrophils % 76.8; RBC 2.84 m/cumm (4.00-5.20); RBC Distribution Width 16.5 % (11.7-14.6)
[2018-09-01 11:01] LABS: Anisocytosis 1+; Diff Comment RBC Morph Reviewed; Hypochromasia 1+; Macrocytosis 2+; Polychromasia Present
[2018-09-01 11:02] LABS: Platelet Count 81 x1000/uL (130-400)
[2018-09-01 11:03] LABS: ALT 15 U/L (12-78); AST 9 U/L (15-37); Albumin 2.9 g/dL (3.4-5.0); Alkaline Phosphatase 111 U/L (46-116); Anion Gap 6.4 mmol/L (3-11); BUN 35 mg/dL (7-18); Bilirubin, Total 0.3 mg/dL (0.2-1.0); CO2 35.6 mmol/L (21.0-32.0); Calcium 8.7 mg/dL (8.5-10.1); Chloride 107 mmol/L (98-107); Estimated GFR 11.72 (mL/min/1.73m2); Glucose 93 mg/dL (70-100); Potassium 3.4 mmol/L (3.5-5.1); Sodium 149 mmol/L (136-145); Total Protein 5.3 g/dL (6.4-8.2)
[2018-09-01 11:12] LABS: CREATININE 3.96 mg/dL (0.55-1.02)
[2018-09-01 11:13] LABS: Troponin I < 0.02 ng/mL (0.00-0.06)
--- NOTE | 2018-09-01 11:30 | NUR.NOTE ---
Nursing Note: it systems analyst consultant at bedside, patient uncooperative with care mostly. refusing CXR. IVF infusing, no acute distress noted. will continue to monitor
[2018-09-01] MEDS: LORazepam 1 MG TAB PO (11:37)
--- NOTE | 2018-09-01 11:42 | NUR.NOTE ---
Nursing Note: Medicated with ativan for agitation, meal tray ordered. will attempt to straight cath and get XR when she is more calm.
--- NOTE | 2018-09-01 12:25 | NUR.NOTE ---
Nursing Note: Pt more calm, urine specimen obtained, cleaned of incontinece. will cont to monitor.
[2018-09-01 12:32] LABS: Bilirubin Negative (Negative); Blood Negative (Negative); Clarity Clear; Glucose Negative (Negative); Ketones Negative (Negative); Leukocyte Esterase Small (Negative); Nitrite Positive (Negative); Specific Gravity 1.015 (1.005-1.025); Urobilinogen 0.2 EU/dL (Up TO 0.2); pH 6.5 (5-8)
--- NOTE | 2018-09-01 12:40 | DI.RAD_ITS ---
SYMPTOM/DIAGNOSIS: FAILURE TO THRIVE PORTABLE AP CHEST: Comparison is made with 05/18/18. The heart appears mildly enlarged. There are bilateral pulmonary infiltrates present, predominantly in the perihilar region. There is blunting of the left costophrenic angle raising the question of a small pleural effusion. The bones appear intact. IMPRESSION: CHF versus multi focal pneumonia. Please correlate clinically.
[2018-09-01 12:42] LABS: Bacteria Many HPF (Negative); C & S Indicated? Yes; Epithelial Cells Rare HPF (Negative); WBC >50 HPF (0-5)
--- NOTE | 2018-09-01 13:18 | NUR.NOTE ---
Nursing Note: Pt noted to be sleeping. acute care nursing assistant at bedside. will continue to monitor, IVF infusing.
[2018-09-01] MEDS: Cephalexin 500 MG CAP PO (13:42)
[2018-09-01 13:44] VITALS: PULSE 62; RESP 20; TEMP 36.4
== END 2018-09-01 14:32 | disposition skilled nursing facility (03) ==
PROVIDERS: Emergency Provider Student in an Organized Health Care Education/Training Program; PCP Family Medicine
DX: N39.0 Urinary tract infection, site not specified (principal); B96.20 Unspecified Escherichia coli [E. coli] as the cause of diseases classified elsewhere; N17.9 Acute kidney failure, unspecified; E87.0 Hyperosmolality and hypernatremia; I12.9 Hypertensive chronic kidney disease with stage 1 through stage 4 chronic kidney disease, or unspecified chronic kidney disease; N18.9 Chronic kidney disease, unspecified; J44.9 Chronic obstructive pulmonary disease, unspecified; E11.22 Type 2 diabetes mellitus with diabetic chronic kidney disease; Z90.5 Acquired absence of kidney; R94.31 Abnormal electrocardiogram [ECG] [EKG]
CPT/HCPCS: 36415; 80053; 82805; 87077; 93005; 99285; 71045; 81003; 81015; 83880; 84484; 85025; 87086; 87186; 93010; J7060

== ENCOUNTER 2018-09-02 10:53 | Outpatient (CLI) | payer MEDICARE, MEDICAID, SELFPAY ==
[2018-09-02 11:44] LABS: HGB 9.1 g/dL (12.0-15.5)
[2018-09-02 12:48] LABS: BUN 38 mg/dL (7-18); Calcium 8.8 mg/dL (8.5-10.1); Estimated GFR 11.58 (mL/min/1.73m2); Glucose 112 mg/dL (70-100); Sodium 144 mmol/L (136-145)
[2018-09-02 12:49] LABS: Anion Gap 7.7 mmol/L (3-11); CO2 33.3 mmol/L (21.0-32.0); Chloride 103 mmol/L (98-107)
== END 2018-09-02 11:13 ==
PROVIDERS: PCP Family Medicine; Visit Provider Family Medicine
DX: E87.0 Hyperosmolality and hypernatremia (principal); R79.0 Abnormal level of blood mineral; E86.0 Dehydration; I25.810 Atherosclerosis of coronary artery bypass graft(s) without angina pectoris; J96.21 Acute and chronic respiratory failure with hypoxia; I50.9 Heart failure, unspecified
CPT/HCPCS: 36415; 80048; 83880; 85014; 85018

== ENCOUNTER 2018-09-03 15:31 | Outpatient (REF) | payer MEDICARE, MEDICAID, SELFPAY ==
[2018-09-03 15:51] LABS: Anion Gap 6.5 mmol/L (3-11); BUN 39 mg/dL (7-18); CO2 33.5 mmol/L (21.0-32.0); Calcium 8.6 mg/dL (8.5-10.1); Chloride 104 mmol/L (98-107); Estimated GFR 11.04 (mL/min/1.73m2); Glucose 90 mg/dL (70-100); Potassium 4.7 mmol/L (3.5-5.1); Sodium 144 mmol/L (136-145)
[2018-09-03 16:05] LABS: CREATININE 4.17 mg/dL (0.55-1.02)
== END 2018-09-03 15:51 ==
LOC: LBN 15:31
PROVIDERS: PCP Family Medicine; Visit Provider Family Medicine
DX: N18.9 Chronic kidney disease, unspecified (principal); D64.9 Anemia, unspecified; E11.9 Type 2 diabetes mellitus without complications; E78.5 Hyperlipidemia, unspecified; I10 Essential (primary) hypertension; Z87.442 Personal history of urinary calculi
CPT/HCPCS: 80048

== ENCOUNTER 2018-09-04 12:03 | Emergency (ER) | payer MEDICARE, MEDICAID, SELFPAY ==
[2018-09-04] VITALS (47 sets, daily range): BP systolic 93–131; BP diastolic 44–77; PULSE 47–61; RESP 11–22; TEMP 36.7; O2SAT 77–100
--- NOTE | 2018-09-04 12:09 | DI.RAD_ITS ---
SYMPTOMS/DIAGNOSIS: HYPOXIC PORTABLE CHEST: Comparison is made with . There has been interval increase in bilateral pleural effusions, left greater than right. Increased densities are again seen at the left lung base. The cardiac silhouette is mainly obscured but appears enlarged. IMPRESSION: Interval increase in bilateral pleural effusions and left lower lobe atelectasis vs pneumonia.
--- NOTE | 2018-09-04 12:18 | ED.GENADUL_ITS ---
Discharge Plan Disposition Patient Disposition: [facility] Condition: Stable Discharge Details Chief Complaint: SOB Clinical Impression: CHF (congestive heart failure), KOBI (acute kidney injury), Acute non-ST elevation myocardial infarction (NSTEMI), Acute and chronic respiratory failure Primary Care Provider: Mariana Arias ED Provider: Cesar Olivera Home Meds and New Rx's Prescriptions: No Action quetiapine [Seroquel] 25 mg Tablet 25 mg PO TID RF: 0 furosemide 40 mg Tablet 40 mg PO DAILY RF: 0 ipratropium-albuterol 0.5 mg-3 mg(2.5 mg base)/3 mL Solution For Nebulization 3 ml INHALATION QID PRNRF: 0 carbamazepine 200 mg Tablet 400 mg PO DAILY RF: 0 lorazepam 0.5 mg Tablet 0.5 mg PO BID PRNRF: 0 potassium chloride 40 mEq/15 mL Liquid 40 meq PO DAILY RF: 0 hydralazine 50 mg Tablet 50 mg PO TID RF: 0 cephalexin [Keflex] 500 mg capsule 500 mg PO BID Qty: 13 RF: 0 carvedilol 25 mg Tablet 25 mg PO BID RF: 0 acetaminophen 325 mg Tablet 650 mg PO .Q4HRS PRNRF: 0 citalopram 40 mg Tablet 40 mg PO DAILY RF: 0 polyethylene glycol 3350 [Miralax] 17 gram Powder In Packet 17 g PO DAILY PRNRF: 0 ondansetron HCl [Zofran] 4 mg Tablet 4 mg PO .Q6HRS PRNRF: 0 isosorbide mononitrate 30 mg Tablet Extended Release 24 Hr 30 mg PO DAILY RF: 0 risperidone 2 mg Tablet 2 mg PO DAILY RF: 0 ascorbic acid (vitamin C) [Vitamin C] 500 mg Tablet 500 mg PO DAILY RF: 0 amlodipine 10 mg Tablet 10 mg PO DAILY RF: 0 simvastatin 20 mg Tablet 20 mg PO .QHS RF: 0 ferrous sulfate [Iron (ferrous sulfate)] 325 mg (65 mg iron) Tablet 325 mg PO BID RF: 0 docusate sodium [Colace] 100 mg Capsule 100 mg PO BID RF: 0 omeprazole 20 mg Capsule,Delayed Release(Dr/Ec) 20 mg PO DAILY RF: 0 aspirin 81 mg Tablet,Chewable 81 mg PO DAILY RF: 0 ipratropium bromide 42 mcg (0.06 %) T[place]ill,Non-Aerosol 1 spray Intranasal .Q8HRS PRNRF: 0 Symbicort 160-4.5 mcg/actuation Hfa Aerosol Inhaler 1 puff Inhalation DAILY RF: 0 melatonin 5 mg Tablet 3 mg PO .QHS RF: 0 cariprazine 1.5 mg Capsule 1.5 mg PO DAILY RF: 0 carbamazepine (mood stabiliz) 200 mg Capsule, Er Multiphase 12 Hr 200 mg PO BID RF: 0 Glucagon Emergency Kit (human) 1 mg Kit 1 mg IM .Q15 MINUTES PRNRF: 0 dextrose [Glucose Gel] 40 % Gel 1 dose PO PRNRF: 0 isosorbide dinitrate 30 mg Tablet 30 mg PO DAILY RF: 0 Medical Decision Making This is a 58-year-old female with multiple medical problems as well as developmental delay who presents for evaluation of hypoxemia. She was in the 40s at her facility. She is come up with a nonrebreather placement by EMS. Currently she is saturating in the mid 90s via nasal cannula. She is tolerating this well. Mild amount of rhonchi in the lungs on exam. No signs of acute respiratory distress at this time. Patient is full code. We will get a chest x-ray, evaluate for signs of acute respiratory failure from pneumonia or fluid overload. 1:44 PM Patient has multiple issues going on currently. Laboratory workup is returned demonstrates no white count or bandemia however she does have low platelets which seems to be her baseline. Hemoglobin is also slightly low near her baseline. Demonstrates notable elevation in her creatinine at 4.68 which is significantly higher than normal, in conjunction with a BUN of 41. Electrolytes are normal though. Troponin is also elevated at 0.48, and proBNP is greater than 35,000 which is higher than normal for the patient. Chest x-ray per virtual radiologist demonstrates notable signs of congestive heart failure exacerbation, as well as an increasing opacity in the mid lung region may represent atelectasis or pneumonia. Mild to moderate bilateral pleural effusions. I feel that the patient is suffering from a combination of congestive heart failure secondary to her increased IV fluid load that was being given at her rehab facility for her hypernatremia. I feel that this is causing stress on the heart leading to a troponin leak, all worsened by her acute on chronic kidney failure. With the evidence of a CHF exacerbation, acute on chronic kidney injury, elevated troponin, I do feel that she will require a higher level of care. Currently we have no beds available in the hospital. We will contact [facility] for potential placement. We will give 20 of Lasix at this time for mild diuresis with her notable CHF. She is still on 10 L via the nonrebreather. 3:30 PM Case was discussed with [facility], they agreed to accept the patient under Dr. Banks. Patient will be transferred to the ICU via [facility]. I have extensively reviewed the treatment plan with the patient. I have addressed all patient concerns at this time. I have also discussed the plan with the admitting physician and they agree with the current assessment and plan and have agreed to assume responsibility for the patient. All parties demonstrate verbal understanding and agreement with our assessment and plan at this time. EKG 12: 34 Rate 55, IN 202, QTc 434 QRS 128, sinus bradycardia, right bundle branch block, atypical inverted T waves in V1, V2, and V3. No ST elevations. EKG is inconsistent with Brugada and Wellons. Review of EKG from 09/01/18 demonstrates inverted T waves in V1 through 3 as well at that time peer FINDINGS: Lungs: Increasing Opacities in the midlung regions and both bases may represent exacerbation of atelectasis or pneumonia. Pleural space: Mild to moderate pleural effusions bilaterally. Heart/Mediastinum: Cardiomegaly and vascular prominence may represent interstitial edema or congestive heart failure. Bones/joints: Stable IMPRESSION: 1. Cardiomegaly and vascular prominence may represent interstitial edema or congestive heart failure. 2. Increasing Opacities in the midlung regions and both bases may represent exacerbation of atelectasis or pneumonia. 3. Mild to moderate pleural effusions bilaterally. Dictated and Authenticated by: Dmitri Ruano MD. HPI General Date/Time Provider Initiated Documentation: 09/04/18 12:09 . HPI Narrative: Tona Queen is a 58-year-old woman with history of hypertension, CKD status post nephrectomy, cognitive deficit, bipolar, coronary artery disease, diabetes, hyperlipidemia who presents today for evaluation of respiratory distress. She was recently in the emergency department 3 days ago for hypernatremia, she was eventually discharged home with evidence of an acute kidney injury and her hyponatremia with continued D5 water treatment at her facility. The facility noticed today that the patient was having notable respiratory distress. The patient was found to be in the 40s on pulse oximetry, with tachypnea and difficulty breathing. 15 L via nasal cannula were unable to improve her hypoxe jesus. She was brought here by EMS for further management. The patient does suffer from cognitive deficit, and per nursing staff from the facility she is at her mental baseline. Patient has no complaints at this time. No other modifying factors. She does still have an IV in place from her facility. Related Data Home Medications Medication Instructions Recorded Confirmed Glucagon Emergency Kit (human) 1 mg IM .Q15 MINUTES PRN 05/06/18 09/04/18 Symbicort 1 puff INHALATION DAILY 05/06/18 09/04/18 acetaminophen 650 mg PO .Q4HRS PRN 05/06/18 09/04/18 amlodipine 10 mg PO DAILY 05/06/18 09/04/18 ascorbic acid (vitamin C) [Vitamin 500 mg PO DAILY 05/06/18 09/04/18 C] aspirin 81 mg PO DAILY 05/06/18 09/04/18 carbamazepine (mood stabiliz) 200 mg PO BID 05/06/18 09/04/18 cariprazine 1.5 mg PO DAILY 05/06/18 09/04/18 carvedilol 25 mg PO BID 05/06/18 09/04/18 citalopram 40 mg PO DAILY 05/06/18 09/04/18 dextrose [Glucose Gel] 1 dose PO PRN 05/06/18 06/30/18 docusate sodium [Colace] 100 mg PO BID 05/06/18 09/04/18 ferrous sulfate [Iron (ferrous 325 mg PO BID 05/06/18 09/04/18 sulfate)] ipratropium bromide 1 spray INTRANASAL .Q8HRS PRN 05/06/18 09/01/18 isosorbide mononitrate 30 mg PO DAILY 05/06/18 09/04/18 melatonin 3 mg PO .QHS 05/06/18 09/04/18 omeprazole 20 mg PO DAILY 05/06/18 09/04/18 ondansetron HCl [Zofran] 4 mg PO .Q6HRS PRN 05/06/18 09/04/18 polyethylene glycol 3350 [Miralax] 17 g PO DAILY PRN 05/06/18 09/04/18 risperidone 2 mg PO DAILY 05/06/18 09/04/18 simvastatin 20 mg PO .QHS 05/06/18 09/04/18 carbamazepine 400 mg PO DAILY 09/01/18 09/04/18 cephalexin [Keflex] 500 mg PO BID #13 cap 09/01/18 09/04/18 furosemide 40 mg PO DAILY 09/01/18 09/04/18 hydralazine 50 mg PO TID 09/01/18 09/04/18 ipratropium-albuterol 3 ml INHALATION QID PRN 09/01/18 09/04/18 lorazepam 0.5 mg PO BID PRN 09/01/18 09/04/18 potassium chloride 40 meq PO DAILY 09/01/18 09/04/18 quetiapine [Seroquel] 25 mg PO TID 09/01/18 09/04/18 isosorbide dinitrate 30 mg PO DAILY 09/04/18 09/04/18 Previous Rx's Medication Instructions Recorded cephalexin [Keflex] 500 mg PO BID #13 cap 09/01/18 Allergies Allergy/AdvReac Type Severity Reaction Status Date / Time pollen extracts Allergy Unknown Unverified 09/04/18 12:50 Sulfa (Sulfonamide Allergy Unknown Unverified 09/04/18 12:50 Antibiotics) sulfamethoxazole Allergy Unknown Unverified 09/04/18 12:50 [From Bactrim] trimethoprim [From Bactrim] Allergy Unknown Unverified 09/04/18 12:50 General ADAM: 3 Review of Systems Review of Systems All systems reviewed & are unremarkable except as noted in HPI and below PFSH Social History housing: group home Smoking/Tobacco Use Status: Never Exam Narrative Exam Narrative: 1.Const: Morbidly obese, appearing stated age. 2.Eyes: PERRL, no conjunctival injection, and symmetrical lids. Mild crusting around the eyelids. 3.ENT: Atraumatic external nose and ears. Slightly dry MM. Neck: Symmetric, trachea midline, No thyromegaly. 4.CVS: +S1/S2, No murmurs or gallops. Peripheral pulses 2+ and equal in all extremities. Brisk capillary refill in all extremities. 5.RESP: Currently on nonrebreather, no significant difficulty with respirations. Minimal coarse breath sounds in the bases. 6.GI: Soft, Nontender/Nondistended, No hepatosplenomegaly. No guarding or rebound. 7.MSK: Normocephalic/Atraumatic, Extremities w/o deformity or ttp No cyanosis or clubbing, Normal movement of all extremities. No calf tenderness. No significant pitting edema. 8.Skin: Warm, Dry. No rashes or lesions. 9.Neuro: digital asset specialist II-XII grossly intact. Sensation grossly intact, no focal neurologic deficits. Patient is at her baseline. 10.Psych: (AAO) x3. Appropriate mood and affect, she is slightly combative though.
[2018-09-04 12:35] LABS: Abs Immature Grans 0.02 k/cumm (0.0-0.09); Absolute Basophil Count 0.01 k/cumm (0.0-0.2); Absolute Eosinophil Count 0.04 k/cumm (0.0-0.7); Absolute Lymphocyte Count 0.44 k/cumm (1.2-3.4); Absolute Monocyte Count 0.33 k/cumm (0.11-0.7); Absolute Neutrophil Count 3.75 k/cumm (1.2-6.7); Basophils % 0.2; Eosinophils % 0.9; HCT 29.9 % (36.0-46.0); HGB 8.9 g/dL (12.0-15.5); Immature Grans % 0.4; Lymphocytes % 9.6; Mean Corp. HGB Concentration 29.8 g/dL (32.0-36.0); Mean Corpuscular Hemoglobin 32.5 pg (27.0-33.0); Mean Corpuscular Volume 109.1 fL (80-95); Mean Platelet Volume 10.4 fL (8.0-11.0); Monocytes % 7.2; Neutrophils % 81.7; RBC 2.74 m/cumm (4.00-5.20); White Blood Cell Count 4.59 k/cumm (4.4-10.8)
[2018-09-04 12:54] LABS: ALT 24 U/L (12-78); AST 27 U/L (15-37); Albumin 2.7 g/dL (3.4-5.0); Alkaline Phosphatase 110 U/L (46-116); Anion Gap 6.9 mmol/L (3-11); BUN 41 mg/dL (7-18); Bilirubin, Total 0.3 mg/dL (0.2-1.0); CO2 33.1 mmol/L (21.0-32.0); Calcium 8.1 mg/dL (8.5-10.1); Chloride 102 mmol/L (98-107); Estimated GFR 9.66 (mL/min/1.73m2); Glucose 86 mg/dL (70-100); Potassium 4.5 mmol/L (3.5-5.1); Sodium 142 mmol/L (136-145); Total Protein 5.1 g/dL (6.4-8.2)
[2018-09-04 12:55] LABS: Anisocytosis 1+; Diff Comment RBC Morph Reviewed; Hypochromasia 1+
[2018-09-04 12:56] LABS: Macrocytosis 2+; Platelet Count 81 x1000/uL (130-400); Polychromasia Present
--- NOTE | 2018-09-04 12:58 | DI.VRAD_ITS ---
EXAM: XR Chest, 1 View EXAM DATE/TIME: 09/04/2018 12:10 PM CLINICAL HISTORY: 58 years old, female; Signs and symptoms; Shortness of breath; Additional info: Best image possible due to patient's mental state TECHNIQUE: XR of the chest, 1 view. COMPARISON: CR XR PORTABLE CHEST AP 09/01/2018 12:35 PM FINDINGS: Lungs: Increasing Opacities in the midlung regions and both bases may represent exacerbation of atelectasis or pneumonia. Pleural space: Mild to moderate pleural effusions bilaterally. Heart/Mediastinum: Cardiomegaly and vascular prominence may represent interstitial edema or congestive heart failure. Bones/joints: Stable IMPRESSION: 1. Cardiomegaly and vascular prominence may represent interstitial edema or congestive heart failure. 2. Increasing Opacities in the midlung regions and both bases may represent exacerbation of atelectasis or pneumonia. 3. Mild to moderate pleural effusions bilaterally. Dictated and Authenticated by: Dmitri Ruano MD. Ordering:CARLOS Guerrero MD
[2018-09-04 13:21] LABS: NT-proBNP > 35000 pg/mL
[2018-09-04 13:29] LABS: CREATININE 4.68 mg/dL (0.55-1.02)
[2018-09-04 13:42] LABS: Troponin I 0.48 ng/mL (0.00-0.06)
[2018-09-04] MEDS: Furosemide 20 MG/2 ML VIAL (13:45)
[2018-09-04] MEDS: LORazepam 2 MG/ML VIAL 0.5 MG IVP (14:30)
[2018-09-04] MEDS: Aspirin 81 MG CHEW 324 MG CH (14:30)
== END 2018-09-04 16:49 | disposition short-term general hospital (02) ==
PROVIDERS: Emergency Provider Student in an Organized Health Care Education/Training Program; PCP Family Medicine
DX: I21.4 Non-ST elevation (NSTEMI) myocardial infarction (principal); J96.21 Acute and chronic respiratory failure with hypoxia; I11.0 Hypertensive heart disease with heart failure; I50.9 Heart failure, unspecified; N17.9 Acute kidney failure, unspecified
CPT/HCPCS: 36415; 80053; 93005; 96374; 99285; 71045; 83880; 84484; 85025; 93010; J1941; J2060